=== PATIENT | female | born 1955 | race Caucasian/White ===

== ENCOUNTER 2016-09-10 05:08 | Day surgery (SDC) | payer BC ==
[2016-09-09 14:49] LABS: BASOPHILS 0.9 % (0.0-2.0); EOSINOPHILS 1.8 % (0-7); HEMATOCRIT 33.8 % (36.0-48.0); HEMOGLOBIN 9.9 g/dL (12-16); LYMPHOCYTES 20.2 % (15-50); MCH 22.4 pg (26.0-34.0); MCHC 29.3 g/dL (31.0-37.0); MCV 76.5 fL (80.0-100.0); MEAN PLATELET VOLUME 10.1 fL (7.4-10.4); MONOCYTES 21.9 % (2-11); NEUTROPHILS 55.2 % (40-80); PLATELET COUNT 128 10x3/uL (130-400); RBC 4.42 10x6/uL (4.00-5.40); WBC 2.3 10x3/uL (4.8-10.8)
[2016-09-09 15:13] LABS: APTT 27.2 SECONDS (22.8-39.4); INR 1.11 (0.85-1.17); PROTIME 14.1 SECONDS (11.6-15.0)
[2016-09-09 15:24] LABS: ALBUMIN 3.3 g/dL (3.4-5.0); ALKALINE PHOSPHATASE 101 U/L (46-116); ALT (SGPT) 59 U/L (10-68); CALC OSMOLALITY 271 mosm/kg (275-300); CALCIUM 9.1 mg/dL (8.5-10.1); CARBON DIOXIDE 28.4 mmol/L (21.0-32.0); CHLORIDE - SERUM 98 mmol/L (98-107); CREATININE - SERUM 0.6 mg/dL (0.6-1.3); GLUCOSE 127 mg/dL (74-106); POTASSIUM - SERUM 3.7 mmol/L (3.5-5.1); PROTEIN - SERUM 7.6 g/dL (6.4-8.2); SODIUM 136 mmol/L (136-145); UREA NITROGEN 8 mg/dL (7-18); eGFR NON AFRICAN AMERICAN > 90 mL/min (90-120)
[~2016-09-10] VITALS: Ht 167.6 cm; Wt 70.8 kg
[~2016-09-10 05:08] MED LIST: ALDACTONE100 MG PO; AMBIEN10 MG PO; ATIVAN0.5 MG PO; ATIVAN1 MG PO; BACLOFEN10 MG PO; CYMBALTA30 MG PO; EFFEXOR37.5 MG PO; ENULOSE10 G/15 ML PO; EPIKLOR20 MEQ PO; FUROSEMIDE10 MG/M1 IV; FUROSEMIDE40 MG PO; GLUCOPHAGE1000 MG PO; GLUCOPHAGE500 MG PO; LANTUS INSULIN10 ML SC; LASIX20 MG PO; LASIX40 MG PO; MAG-OX 400 MG400 MG; MAGNESIUM OXID500 MG PO; MILK THISTLE140 MG PO; PAXIL20 MG PO; POTASSIUM99 M1 PO; PRILOSEC20 MG PO; REGLAN10 MG PO; ROBAXIN-750750 MG PO; SYNTHROID75 MCG PO; VIT K; VITAMIN D3400 UNI1 PO; VITAMIN E1000 UNI1 PO; XIFAXAN550 MG PO; ZOFRAN4 MG PO
[2016-09-10 13:12] VITALS: BP 117/64; Ht 167.6 cm; Wt 70.8 kg
--- NOTE | 2016-09-10 15:50 | NUR ---
REASSESSING EFFECTIVENESS OF VALIUM 5 MG PO FOR PREOPERATIVE ANXIETY, PATIENT IS LYING IN BED, AWAKE, ALERT, BUT STATES "I FEEL A LITTLE MORE CALM. I CAN WAIT UNTIL THE SURGERY BETTER NOW WITHOUT FEELING SO NERVOUS."
[2016-09-10] MEDS ORDERED: HYDROCODONE-IB1 EAC3 PO (19:31)
[2016-09-10 20:02] VITALS: BP 103/62
--- NOTE | 2016-09-10 20:02 | NUR ---
REC'D FROM PACU PER BED POST OP VENTRAL HERNIA REPAIR PER DR. MARTINEZ. BANDAIDE TO [facility] C/D/I. IV PATENT RT ARM LR AT [facility]. SPOUSE AT BEDSIDE. PT AWAKE ALERT AND ORIENTED X3. MONITORING VS.
--- NOTE | 2016-09-10 20:30 | NUR ---
DRINKING DIET SPRITE AND ATE ON CAN OF CHICKEN NOODLE SOUP. NO NAUSEA OR VOMITING NO C/O PAIN.
--- NOTE | 2016-09-10 21:45 | NUR ---
DISCUSSED WITH PATIENT AND SPOUSE THE CARE NEEDED WITH POST OP HERNIA REPAIR. DISCUSSED NOT REMOVING BANDAIDE FOR 48 HOURS. ALSO NO LIFTING OR STRAINING. DISCUSSED PAIN MEDICATION. SPOUSE HAS ALREADY HAD FILLED. IV REMOVED PT DRESSED AND DISCHARGED HOME WITH SPOUSE PER W/C.
--- NOTE | 2016-09-27 13:33 | OP ---
PATIENT NAME: RASHEED BOYD MEDICAL RECORD: [id number] :57 LOCATION:D.OPS ADMISSION DATE: SURGEON: DELORES MARTINEZ MD DATE OF OPERATION: 09/10/2016 PREOPERATIVE DIAGNOSES: 1. Umbilical hernia. 2. Cirrhosis of the liver. 3. Diabetes mellitus. 4. Lupus. 5. Gastroparesis. 6. History of alcoholism. POSTOPERATIVE DIAGNOSES: 1. Umbilical hernia. 2. Cirrhosis of the liver. 3. Diabetes mellitus. 4. Lupus. 5. Gastroparesis. 6. History of alcoholism. PROCEDURE: Umbilical hernia repair. SURGEON: Delores Martinez MD REPORT OF PROCEDURE: The patient's abdomen was prepped and draped in sterile fashion. A semicircular incision was made on the inferior aspect of the patient's umbilicus. Electrocautery was used to dissect through the umbilical stalk and just above the umbilical stalk there was noted to be a hernia sac. This hernia sac was dissected free from the surrounding tissues, giving us a 1.2 x 0.5 cm hernia defect. This was wider than it was at all. We freed up the edges of it and reapproximated it with interrupted 0 Prolenes times 5. Just below the umbilicus, there was a very small pinpoint opening present. There was spillage of ascitic fluid through this, which was clear. The edges were cleaned off and this was reapproximated with a single interrupted 0 Prolene. The umbilicus was then tacked down using an interrupted 3-0 Vicryl. The subcutaneous tissues were reapproximated with interrupted 3-0 Vicryls and the skin was closed with running subcutaneous 5-0 Monocryl. A 10 mL of 0.25% Marcaine with epinephrine were infused into the surrounding tissues and the wounds were dressed appropriately. COMPLICATIONS: None. CONDITION: Stable. ANESTHESIA: General endotracheal and local. BLOOD LOSS: Minimal. TRANSINT:[id number] Voice Confirmation ID: [id number] DOCUMENT ID: [id number] OPERATIVE REPORT [id number] RASHEED BOYD DELORES MARTINEZ MD at 1333 CC: MARQUEZ GAUTAM MD [id number] DICTATION DATE: 09/10/161928 DEVULCANIZER CHARGER: 09/10/161956 [facility] 09/10/16 [facility] [address] [place] [address]
== END 2016-09-10 21:45 | disposition home or self-care (01) ==
LOC: D.OPS 05:08 → D.PAN 09:45 → D.OPS 09:45 → D.PAN 14:15 → D.OPS 14:15 → D.MS 20:01 → D.OPS 21:45
PROVIDERS: Surgery
DX: K42.9 Umbilical hernia without obstruction or gangrene (principal); K70.31 Alcoholic cirrhosis of liver with ascites; F10.21 Alcohol dependence, in remission; E11.43 Type 2 diabetes mellitus with diabetic autonomic (poly)neuropathy; K31.84 Gastroparesis; M32.9 Systemic lupus erythematosus, unspecified

== ENCOUNTER 2016-12-29 09:07 | Emergency (ER) | payer BC ==
[2016-09-10 13:12] VITALS: BMI 25.2
[~2016-12-29 09:07] MED LIST changes: +HYDROCODONE-IB1 EAC3 PO
== END 2016-12-29 11:00 | disposition home or self-care (01) ==
LOC: D.ER 09:07
DX: S63.502A Unspecified sprain of left wrist, initial encounter (principal); W19.XXXA Unspecified fall, initial encounter; Y93.89 Activity, other specified; Y92.89 Other specified places as the place of occurrence of the external cause; K74.60 Unspecified cirrhosis of liver; E11.9 Type 2 diabetes mellitus without complications; M32.9 Systemic lupus erythematosus, unspecified

== ENCOUNTER → 2017-06-05 07:40 | Outpatient (CLI) | payer BC ==
[2016-09-10 13:12] VITALS: BMI 25.2
== END | disposition home or self-care (01) ==
LOC: D.US 07:40
DX: K74.60 Unspecified cirrhosis of liver (principal)

== ENCOUNTER 2017-06-10 03:43 | Emergency (ER) | payer BC ==
[2016-09-10 13:12] VITALS: BMI 25.2
[2017-06-10 04:23] LABS: APPEARANCE CLEAR (CLEAR); BILIRUBIN NEGATIVE (NEGATIVE); COLOR STRAW (YELLOW); GLUCOSE NEGATIVE (NEGATIVE); KETONE NEGATIVE (NEGATIVE); NITRITE NEGATIVE (NEGATIVE); PROTEIN NEGATIVE (NEGATIVE); SPECIFIC GRAVITY 1.005 (1.005-1.020); UROBILINOGEN NORMAL (NORMAL)
[2017-06-10 04:24] LABS: UDS - AMPHET NEGATIVE QUAL (NEGATIVE); UDS - BARB NEGATIVE QUAL (NEGATIVE); UDS - BENZO NEGATIVE QUAL (NEGATIVE); UDS - COCAINE NEGATIVE QUAL (NEGATIVE); UDS - OPIATE NEGATIVE QUAL (NEGATIVE); UDS - PCP NEGATIVE QUAL (NEGATIVE); UDS - THC NEGATIVE QUAL (NEGATIVE)
[2017-06-10 04:28] LABS: MCH 22.6 pg (26.0-34.0); MCHC 30.3 g/dL (31.0-37.0); MCV 74.7 fL (80.0-100.0); MEAN PLATELET VOLUME 9.9 fL (7.4-10.4); PLATELET COUNT 127 10x3/uL (130-400); RBC 4.42 10x6/uL (4.00-5.40); RDW 19.5 % (11.5-14.5); WBC 3.2 10x3/uL (4.8-10.8)
[2017-06-10 04:38] LABS: ALBUMIN 3.3 g/dL (3.4-5.0); ALKALINE PHOSPHATASE 112 U/L (46-116); ALT (SGPT) 60 U/L (10-68); BILIRUBIN - TOTAL 0.63 mg/dL (0.2-1.3); CALC OSMOLALITY 258 mosm/kg (275-300); CALCIUM 8.8 mg/dL (8.5-10.1); CARBON DIOXIDE 23.2 mmol/L (21.0-32.0); CHLORIDE - SERUM 90 mmol/L (98-107); CREATININE - SERUM 0.6 mg/dL (0.6-1.3); GLUCOSE 115 mg/dL (74-106); POTASSIUM - SERUM 3.1 mmol/L (3.5-5.1); PROTEIN - SERUM 8.2 g/dL (6.4-8.2); SODIUM 130 mmol/L (136-145); UREA NITROGEN 5 mg/dL (7-18); eGFR NON AFRICAN AMERICAN > 90 mL/min (90-120)
[2017-06-10 04:45] LABS: BASOPHILS 1 % (0-2); EOSINOPHILS 1 % (0-7); LYMPHOCYTES 35 % (15-50); MONOCYTES 13 % (2-11); NEUTROPHILS 49 % (40-80)
[2017-06-10 04:46] LABS: PLATELET ESTIMATE NORMAL
[2017-06-10 04:49] LABS: CKMB 0.8 U/L (0.0-3.6); CREATINE KINASE 69 UL (21-215); MAGNESIUM - SERUM 1.7 mg/dL (1.8-2.4)
[2017-06-10 04:52] LABS: TROPONIN-I < 0.017 ng/mL (0.000-0.060)
== END 2017-06-10 06:33 | disposition home or self-care (01) ==
LOC: D.ER 03:43
PROVIDERS: Family Medicine
DX: F41.9 Anxiety disorder, unspecified (principal); F10.10 Alcohol abuse, uncomplicated; E83.51 Hypocalcemia; E83.42 Hypomagnesemia; K74.60 Unspecified cirrhosis of liver; M32.9 Systemic lupus erythematosus, unspecified; F17.200 Nicotine dependence, unspecified, uncomplicated; I44.0 Atrioventricular block, first degree

== ENCOUNTER → 2018-02-03 08:02 | Outpatient (CLI) | payer BC ==
[2016-09-10 13:12] VITALS: BMI 25.2
== END | disposition home or self-care (01) ==
LOC: D.US 01-29 08:30
DX: K74.60 Unspecified cirrhosis of liver (principal)

== ENCOUNTER → 2018-10-19 08:09 | Outpatient (CLI) | payer BC ==
[2016-09-10 13:12] VITALS: BMI 25.2
== END | disposition home or self-care (01) ==
LOC: D.US 10-16 11:00
PROVIDERS: ATTEND Family Medicine
DX: K74.60 Unspecified cirrhosis of liver (principal); R18.8 Other ascites

== ENCOUNTER 2018-12-18 10:41 | Inpatient (IN) | payer BC ==
[~2018-12-18] VITALS: Ht 167.6 cm; Wt 63.5 kg
--- NOTE | ~2018-12-18 | HEMODYNAMI ---
PATIENT:RASHEED BOYD MEDICAL RECORD: [id number] : 57 LOCATION:[facility] D.1212 ADMISSION DATE: 12/18/18 Generatedon:12/18/201816:57 Patient name: RASHEED BOYD Patient #: [id number] SSN: : 1955 Date of study: 12/18/2018 Page: Of Hemodynamic Procedure Report Patient Data Patient Demographics Procedure consent was obtained First Name: RASHEED Gender: Female Last Name: OLIVER : 1955 Middle Initial: RAJNI Age: 63 year(s) Patient #: [id number] Race: Unknown Additional ID: [id number] Contact details Address: [address] [place] [address] [facility] State: [place] City: [facility] Zip code: [address] Past Medical History Allergies Allergen Reaction Date Comments Reported Sulfa drugs 12/18/2018 Admission Admission Data Admission Date: 12/18/2018 Admission Time: 12:59 Room #: D.1212 Procedure Procedure Types Cath Procedure Peripheral Cath Diagnostic Procedure Miscellaneous PARACENTESIS WITH GUIDE Procedure Description Procedure Date Procedure Date: 12/18/2018 Procedure Start Time: 16:23 Procedure Staff Name Function Rich Ward MD Performing Physician Michel Verde RT Monitor Rasheed Rodrigues RN Nurse Hemodynamics Rest Heart Rate: 70 (bpm) Snapshots Pre Cath Intra NCS Post Cath Vital Signs Time Heart Resp SPO2 etCO2 NIBP Rhythm Pain Sedation Rate (ipm) (%) (mmHg) (mmHg) Status Level (bpm) 16:06:28 69 19 93 0 97/62(83) NSR 0 (11) 10(A) , No pain 16:10:29 54 15 94 0 98/63(73) NSR 0 (11) 10(A) , No pain 16:14:31 69 17 94 0 95/62(81) NSR 0 (11) 10(A) , No pain 16:18:33 70 19 94 0 96/60(73) NSR 0 (11) 10(A) , No pain 16:22:35 69 15 93 0 98/62(79) NSR 0 (11) 10(A) , No pain 16:26:36 69 17 92 0 94/62(87) NSR 0 (11) 10(A) , No pain 16:30:38 72 17 93 0 90/60(76) NSR 0 (11) 10(A) , No pain 16:34:37 69 18 0 91/60(74) NSR 0 (11) 10(A) , No pain 16:38:37 69 16 0 95/61(75) NSR 0 (11) 10(A) , No pain 16:42:39 68 14 92 0 93/59(71) NSR 0 (11) 10(A) , No pain 16:46:43 68 14 0 90/54(75) NSR 0 (11) 10(A) , No pain 16:50:46 68 14 0 93/51(81) NSR 0 (11) 10(A) , No pain 16:54:50 67 11 0 91/54(77) NSR 0 (11) 10(A) , No pain Procedure Log Time Note 15:56:31 Michel Verde RT (R) (CV) sent for patient. Start room use. 15:56:41 Time tracking: Regular hours (M-F 7:00 - 5:00) 15:56:45 Plan of Care:Hemodynamics will remain stable., Cardiac rhythm will remain stable., Comfort level will be maintained., Respiratory function will remain adequate., Patient/ family verbilizes understanding of procedure., Procedure tolerated without complication., Recovers from procedure without complications.. 15:57:27 Patient received from Other to IR Alert and oriented. Tansferred to table in Supine position. 15:57:31 Full Disclosure recording started 15:57:33 Correct patient and procedure confirmed by team. 15:57:36 Signed procedure consent form obtained from patient. 15:57:41 - 15:57:42 Pre-procedure instructions explained to patient. 15:57:43 Pre-op teaching completed and patient verbalized understanding. 16:05:20 ECG and BP/O2 sat monitors applied to patient. 16:05:21 Vital chart was started 16:05:22 Baseline sample Acquired. 16:05:34 Patient allergic to Sulfa drugs 16:05:40 Is patient on blood thinner?No 16:05:49 Right Abdomen was prepped with chlora-prep and draped in sterile fashion. 16:22:12 Physician arrived 16:22:13 --------ALL STOP TIME OUT------ 16:22:18 Final Timeout: patient, procedure, and site verified with staff and physician. All members of the team are in agreement. 16:22:24 Right abdomen site verified by team. 16:22:32 Fire Safety Assessment: A--An alcohol-based skin anteseptic being used preoperatively., C--Open oxygen or nitrous oxide is being used. 16:22:38 Sedation plan: Local Anesthetic Medication:Lidocaine 16:22:52 Procedure started. 16:23:32 Local anesthetic to Abdominal area with Lidocaine 1% by Rich Ward MD.INITIAL ACCESS ONLY 16:23:45 [id number] 8FR CATH DRAIN TRAY opened to sterile field. 16:56:11 Procedure ended.(Physican Out) 16:56:19 Sharps counted by scrub and verified by R.N. 16:56:25 Insertion/operative site no bleeding no hematoma. 16:56:30 Post-op/insertion site Right Abdominal area dressed using a 4 x 4 and Tegaderm. 16:56:37 Post Abdominal area:stable 16:56:49 7.6 liters drained 16:57:28 Report given to Other. 16:57:30 Patient transfered to Other with Bed. 16:57:48 Vital chart was stopped Device Usage Item Name Manufacture Quantity Catalog Hospital Part Current Minimal Lot# / Number Charge Number Stock Stock Serial# Code [id number] CareFusion 1 [id number] 8FR CATH DRAIN TRAY Signature Audit [place] Stage Time Signature Unsigned Intra-Procedure 12/18/2018 Michel 4:57:46 PM Ammon RT (R) (CV) Signatures Monitor : Michel Signature : Bobyield RT Date : Time : [facility] [address] [facility] [address]
[2018-12-18] MEDS ORDERED: LASIX40 MG PO (11:09)
[2018-12-18] MEDS ORDERED: GABAPENTIN100 MG PO (11:10)
[2018-12-18] MEDS ORDERED: ALEVE220 MG PO (11:10)
[2018-12-18] MEDS ORDERED: LIBRIUM25 MG PO (11:11)
[2018-12-18] MEDS ORDERED: PROPRANOLOL HCL20 MG PO (11:12)
[2018-12-18] MEDS ORDERED: XIFAXAN550 MG PO (11:12)
[2018-12-18 11:54] LABS: HEMATOCRIT 28.4 % (36.0-48.0); HEMOGLOBIN 9.4 g/dL (12-16); MCH 26.4 pg (26.0-34.0); MCHC 33.1 g/dL (31.0-37.0); MCV 79.8 fL (80.0-100.0); MEAN PLATELET VOLUME 10.1 fL (7.4-10.4); RBC 3.56 10x6/uL (4.00-5.40); WBC 2.7 10x3/uL (4.8-10.8)
[2018-12-18 11:56] LABS: PLATELET COUNT 192 10x3/uL (130-400)
[2018-12-18 12:12] LABS: ALBUMIN 2.3 g/dL (3.4-5.0); ANION GAP 15.8 mmol/L (8-16); BILIRUBIN - TOTAL 1.33 mg/dL (0.2-1.3); CALCIUM 8.7 mg/dL (8.5-10.1); CARBON DIOXIDE 24.7 mmol/L (21.0-32.0); CREATININE - SERUM 1.5 mg/dL (0.6-1.3); PROTEIN - SERUM 7.1 g/dL (6.4-8.2)
[2018-12-18 12:16] LABS: POTASSIUM - SERUM 2.5 mmol/L (3.5-5.1)
[2018-12-18 12:28] LABS: APPEARANCE CLEAR (CLEAR); BILIRUBIN NEGATIVE (NEGATIVE); COLOR YELLOW (YELLOW); GLUCOSE NEGATIVE (NEGATIVE); KETONE NEGATIVE (NEGATIVE); NITRITE NEGATIVE (NEGATIVE); PROTEIN NEGATIVE (NEGATIVE); UROBILINOGEN NORMAL (NORMAL)
[2018-12-18 12:40] LABS: APTT 32.4 SECONDS (22.8-39.4); INR 1.13 (0.85-1.17)
[2018-12-18 13:22] LABS: EOSINOPHILS 2 % (0-7); HYPOCHROMASIA 1+; LYMPHOCYTES 15 % (15-50); MONOCYTES 27 % (2-11); NEUTROPHILS 56 % (40-80); PLATELET ESTIMATE NORMAL
--- NOTE | 2018-12-18 13:50 | NUR ---
REPORT CALLED TO [place] BY SBAR FORMAT
--- NOTE | 2018-12-18 13:55 | NUR ---
PT ADMITTED TO 1212. CONDITION STABLE.
--- NOTE | 2018-12-18 14:10 | NUR ---
RECEIVED PATIENT FROM ER VIA STRETCHER, ALERT, CALM, PLEASANT MOOD, FAMILY AT BEDSIDE. TRANSFERED FOR STRETCHER TO BED WITHOUT DIFFICULTY. CALL LIGHT AT HAND, INSTRUCTED TO CALL WITH NEEDS.
[2018-12-18 16:20] VITALS: BP 139/64
--- NOTE | 2018-12-18 17:19 | NUR ---
RETURNED FROM PROCEDURE, ALERT, ORIENTED, CALM, COOPERATIVE. STATED THAT SHE FELT BETTER. VSS FOLLOWS: T 97.0, B/P 89/55, P 66, R 18, SPO2 95%. NEW ORDERS FOR ALBUMIN, PHARM NOTIFIED.
[2018-12-18 18:38] LABS: EOS BF 2 %; MACROPHAGES BF 62 %; NEUT - BF 9 %
[2018-12-18 19:50] VITALS: BP 89/38
--- NOTE | 2018-12-18 19:57 | NUR ---
EVENING ROUNDS COMPLETED. REPORT RECEIVED. PT SITTING UP IN BED WITH EYES OPEN, RR EVEN AND UNLABORED. BED IN LOW POSITION. FAMILY AT BEDSIDE. NO S/S OF DISTRESS NOTED. INTRODUCED SELF TO PT. PT COMPLAINS OF PAIN IN LEFT HEEL. THEREFORE PLACED PILLOW UNDER PT FEET. +4 EDEMA PALPATED ON BILATERAL LOWER EXTREMITIES. PT DENIES FURTHER NEEDS AT THIS TIME. CALL LIGHT IN REACH. WILL CTM.
--- NOTE | 2018-12-18 21:55 | NUR ---
2.8 SERUM POTASSIUM TREATED ORDERED.
[2018-12-19 00:56] VITALS: BP 92/40
--- NOTE | 2018-12-19 03:58 | NUR ---
ASSISTED PT TO BED MERIDA, PROVIDED PT WITH NEW BED SHEETS AND LINEN AFTER EPISODE OF URINARY INCONTINENCE. NO S/S OF DISTRESS NOTED. CALL LIGHT IN REACH. WILL CTM.
--- NOTE | 2018-12-19 04:52 | NUR ---
I have reviewed this patient and I concur with the Shift Assessment completed by the Licensed Practical Nurse today this shift.
[2018-12-19 05:08] VITALS: BP 91/32
[2018-12-19 08:05] VITALS: BP 94/46
--- NOTE | 2018-12-19 09:18 | NUR ---
MORNING ASSESSMENT COMPLETE. SEE ASSESSMENT FLOWSHEET FOR FURTHER DETAILS. PT LYING IN BED AAO X4 TO PERSON, PLACE, TIME, AND SITUATION. DENIES NEEDS AT THIS TIME. CL IN REACH. SIDE RAULS UP X3 FOR PT SAEFTY. BED IN LOWEST POSITION.
[2018-12-19 11:35] VITALS: Ht 167.6 cm; Wt 63.5 kg
[2018-12-19 12:57] VITALS: BP 100/63; BP 154/65
[2018-12-19 16:19] VITALS: BP 105/58
--- NOTE | 2018-12-19 17:31 | NUR ---
PT LYING IN BED. AT BEDSIDE. DENIES NEEDS AT THIS TIME. NO SIGNS OF DISTRESS NOTED.
[2018-12-19 20:00] VITALS: BP 102/63
[2018-12-20] VITALS: BP 90/52
--- NOTE | 2018-12-20 00:35 | NUR ---
ALERT AND ORIENTED WITH BRIEF MOMENTS OF CONFUSION. COMPLAINS OF MUSCLE SPASMS. DISCUSSED WITH PATIENT LOW POTASSIUM AND S/E OF ELECTROLYTE IMBALANCE. PT VERBALIZES UNDERSTANDING. ASSISTED TO BATHROOM. PT SLOW AND REQUIRES PARTIAL ASSISTANCE. VOIDS WITH NO ISSUES. LEFT AC IV THAT IS PATENT AND DRESSING ADHERED TO SKIN. ASSISTED BACK TO BED. NO FURTHER ISSUES AT THIS TIME.
--- NOTE | 2018-12-20 01:39 | NUR ---
I have reviewed this patient and I concur with the Shift Assessment completed by the Licensed Practical Nurse today this shift.
[2018-12-20 04:00] VITALS: BP 113/61
[2018-12-20 06:02] LABS: HEMATOCRIT 27.4 % (36.0-48.0); MCH 26.5 pg (26.0-34.0); MCHC 32.8 g/dL (31.0-37.0); MCV 80.6 fL (80.0-100.0); MEAN PLATELET VOLUME 9.3 fL (7.4-10.4); MONOCYTES 26.5 % (2-11); NEUTROPHILS 38.5 % (40-80); PLATELET COUNT 163 10x3/uL (130-400)
[2018-12-20 06:48] LABS: ANION GAP 15.3 mmol/L (8-16); BILIRUBIN - TOTAL 1.52 mg/dL (0.2-1.3); CALCIUM 8.3 mg/dL (8.5-10.1); CARBON DIOXIDE 25.4 mmol/L (21.0-32.0); CREATININE - SERUM 0.9 mg/dL (0.6-1.3); POTASSIUM - SERUM 3.7 mmol/L (3.5-5.1); PROTEIN - SERUM 6.6 g/dL (6.4-8.2)
--- NOTE | 2018-12-20 07:49 | NUR ---
MORNING ASSESSMENT COMPLETE. PT AAO X4 TO PERSON, PLACE, TIME, AND SITUATION. DENEIS NEEDS AT THIS TIME. CL IN REACH. SIDE RAILS UP X3 FOR PT SAFETY. BED IN LWOEST POSITION. MAG DECREASED AT 1- WILL TREAT PER PROTOCOL. ALBUMIN INCREASING- TREATING WITH ALB Q12. AMMONIA DECREASING- TREATING WITH LACTULOSE.
[2018-12-20 07:56] VITALS: BP 98/53
[2018-12-20 12:06] VITALS: BP 94/64
[2018-12-20 15:56] VITALS: BP 107/63
--- NOTE | 2018-12-20 19:08 | NUR ---
GREETED PATIENT AND INTRODUCED MYSELF. PATIENT IS LAYING IN BED IN SUPINE POSITION. HOB AT 30 DEGREES. FAMILY MEMBER AT BEDSIDE. DENIES ANY NEEDS AT THIS TIME. CALL LIGHT IN REACH.
[2018-12-21] VITALS: BP 99/57
--- NOTE | 2018-12-21 02:30 | NUR ---
ASSISTED PATIENT TO BATHROOM USING ONE PERSON ASSIST. BACK TO BED AND REPOSITIONED FOR COMFORT. CALL LIGHT IN REACH.
--- NOTE | 2018-12-21 03:25 | NUR ---
PATIENT RESTING QUIETLY LAYING IN SUPINE WITH EYES CLOSED. HOB AT 30 DEGREES. RESPIRATIONS EVEN. NO S/S OF DISTRESS. SR UP X 2. BED IN LOWEST POSITION. CALL LIGHT IN REACH.
[2018-12-21 04:00] VITALS: BP 96/57
[2018-12-21 05:49] LABS: BASOPHILS 0.8 % (0-2); EOSINOPHILS 5.8 % (0-7); HEMATOCRIT 27.4 % (36.0-48.0); HEMOGLOBIN 8.8 g/dL (12-16); LYMPHOCYTES 25.6 % (15-50); MCHC 32.1 g/dL (31.0-37.0); MCV 81.1 fL (80.0-100.0); MEAN PLATELET VOLUME 9.4 fL (7.4-10.4); NEUTROPHILS 43.8 % (40-80); PLATELET COUNT 171 10x3/uL (130-400); RBC 3.38 10x6/uL (4.00-5.40); RDW 19.1 % (11.5-14.5); WBC 2.6 10x3/uL (4.8-10.8)
[2018-12-21 05:58] LABS: ALBUMIN 2.9 g/dL (3.4-5.0); ALKALINE PHOSPHATASE 78 U/L (46-116); ALT (SGPT) 22 U/L (10-68); BILIRUBIN - TOTAL 1.33 mg/dL (0.2-1.3); CALC OSMOLALITY 264 mosm/kg (275-300); CALCIUM 8.6 mg/dL (8.5-10.1); CARBON DIOXIDE 25.2 mmol/L (21.0-32.0); CHLORIDE - SERUM 98 mmol/L (98-107); CREATININE - SERUM 0.8 mg/dL (0.6-1.3); GLUCOSE 116 mg/dL (74-106); POTASSIUM - SERUM 3.6 mmol/L (3.5-5.1); PROTEIN - SERUM 6.3 g/dL (6.4-8.2); SODIUM 132 mmol/L (136-145); UREA NITROGEN 11 mg/dL (7-18); eGFR NON AFRICAN AMERICAN 77 mL/min (90-120)
[2018-12-21 07:26] VITALS: BP 95/41
--- NOTE | 2018-12-21 07:30 | NUR ---
A/A/OX4. DENIES ANY PAIN OR DISCOMFORT AND NO REQUESTS VOICED. ASSESSMENT COMPLETED. WILL CONTINUE POC.
--- NOTE | 2018-12-21 08:00 | HP ---
PATIENT: RASHEED BOYD MEDICAL RECORD: [id number] ACCOUNT: [id number] [facility] : 57 ADMISSION DATE: 12/19/18 PCP: MARQUEZ GAUTAM MD HISTORY AND PHYSICAL EXAMINATION DATE OF ADMISSION: 12/18/2018. CHIEF COMPLAINT: Abdominal pain, ascites, and some shortness of breath. HISTORY OF PRESENT ILLNESS: A 63-year-old female with a known history of alcoholic cirrhosis with ascites, presented with increased abdominal distention with some respiratory difficulty. She has had pain in the left upper abdominal area. The patient was admitted to [facility] around the first of December and had 6.2 liters of fluid taken off her abdomen at that time. It quickly reaccumulated, but she really would not have any shortness of breath. When she was at [place], her ammonia level in the Emergency Room was 12, total bilirubin 1.8, creatinine 1.09, and sodium was 110. Some medicines were adjusted and I saw her in my office just 2 days ago. She was breathing okay, but definitely had reaccumulated fluid in her abdomen and in her lower extremities. In my office the other day, her creatinine had gone up to 3.1. Her sodium was up to 126, her potassium was okay. In the ER today, her blood pressure was okay. Her sodium was 130, potassium was down at 2.5, creatinine was okay at 1.5, and total bilirubin was 1.3. AST and ALT were both okay. Ammonia level was a little elevated at 38. Her INR is pending. She is admitted and GI will be consulted as well interventional radiology for paracentesis and possible TIPS. PAST MEDICAL AND SURGICAL HISTORY: The patient has had anxiety, diabetes, hypothyroidism, depression, cirrhosis, alcohol abuse, and iron deficiency anemia. She has had low white blood cell count. They were worked up by Dr. Garcia in the past and it was felt this was due to her alcohol consumption. She has had a hysterectomy and umbilical hernia repair by Dr. Resendez and a recurrent umbilical hernia repair by Dr. Mckinley in [place] in August 2018. HOME MEDICATIONS: Include levothyroxine 75 mcg once a day, Xifaxan 550 mg twice a day, propranolol 20 mg twice a day, gabapentin 100 mg 2 in the morning and 1 at night, spironolactone 100 mg twice a day, Lasix 40 mg twice a day, lorazepam 1 mg t.i.d. p.r.n. anxiety, Prilosec 20 mg daily, metformin 1000 mg twice a day. She was also on Librium 25 mg 3 times a day as needed. ALLERGIES: REPORTEDLY TO AMBIEN, HYDROCODONE, AND SULFA. HABITS: Former smoker. Alcohol, she supposedly just recently quit. No illicit drug use. FAMILY HISTORY: Father is . He had diabetes. Mother is living. Maternal grandmother of breast cancer. REVIEW OF SYSTEMS: GENERAL: Weight is fluctuated depending on her fluid status. HEENT: No particular sinus or allergy problems. RESPIRATORY: No history of emphysema or asthma. CARDIAC: No known coronary disease. GASTROINTESTINAL: See above history. She has been seen by Dr. Montejo in the past and then [facility], but has not seen any GI doctor in probably 2 years. GENITOURINARY: No significant problems there. HISTORY AND PHYSICAL [id number] RASHEED BOYD MUSCULOSKELETAL: No significant arthritic aches and pains. NEUROLOGIC: No seizures. No migraines. PSYCHIATRIC: She has depression and anxiety. PHYSICAL EXAMINATION: VITAL SIGNS: Temperature 97.6, pulse 70, respirations 18, blood pressure 139/64, O2 sat 98%. GENERAL: She is awake and alert. She is confused compared to when I saw her in the office a couple days ago. SKIN: Warm and dry. HEENT: Unremarkable. NECK: Supple. HEART: Tachycardia without murmur. LUNGS: Fairly clear. ABDOMEN: Distended and some generalized tenderness. No guarding or rebound. No mass. EXTREMITIES: 3-4+ pitting edema. She has some cellulitis noted in the left anterior tibia area. LABORATORY DATA: Urinalysis is unremarkable. CBC with a white count of 2700, hemoglobin 9.4, hematocrit 28.4, platelets 192,000. INR 1.13. Basic metabolic panel: Sodium 130, potassium 3.5, chloride 92, CO2 24.7, BUN 33, creatinine 1.5, glucose 98, calcium 8.7, total bilirubin 1.33, AST 44, ALT 25, and alkaline phosphatase 106. Ammonia level is 38, albumin 2.3, amylase 34, and lipase 173. ASSESSMENT: 1. Alcoholic cirrhosis with worsening ascites and shortness of breath. 2. Hypokalemia. 3. Cvn-nayothf-ywmrsyjvd diabetes. PLAN: We will admit, replace potassium. Dr. Montejo is consulted. Interventional radiology is consulted for paracentesis and then to consider TIPS procedure. Other tests or procedures as warranted. I spoke with the patient, the patient's , and patient's mother at bedside. TRANSINT:[id number] Voice Confirmation ID: [id number] DOCUMENT ID: [id number] MARQUEZ GAUTAM MD at 0800 CC: [id number] DICTATION DATE: 12/18/181735 LINING CLOSER: 12/18/181950 ADM IN [facility] [address] [place] [id number]
--- NOTE | 2018-12-21 08:46 | MORECARE ---
CASE MANAGEMENT DISCHARGE SUMMARY PATIENT: RASHEED BOYD UNIT: [id number] ADM DATE: 12/19/18 AGE: 63 : 57 SEX: F ROOM/BED: D.1212 AUTHOR: BENITA LEAVITT PHYSICIAN: REFERRING PHYSICIAN: MARQUEZ GAUTAM MD DATE OF SERVICE: 12/21/18 Discharge Plan Patient Name: RASHEED BOYD [facility] : 1955 Planned Disposition: Home Anticipated Discharge Date: Discharge Date: Expected LOS: Initial Reviewer: [email or web address] Initial Review Date: 12/21/2018 Generated: 12/21/18 9:46 am Patient Name: RASHEED BOYD Page 03615 at 0846 All edits/amendments must be made on the electronic document DICTATION DATE: 12/21/1845 CABINET ASSEMBLER: ABDULLAHI 12/21/18 0845 RPT#: [id number] DC DATE: STATUS: ADM IN [facility] [address] [place] [address] END OF REPORT
--- NOTE | 2018-12-21 08:52 | MORECARE ---
CASE MANAGEMENT DISCHARGE SUMMARY PATIENT: RASHEED BOYD UNIT: [id number] ADM DATE: 12/19/18 AGE: 63 : 57 SEX: F ROOM/BED: D.1212 AUTHOR: TREE,DOC PHYSICIAN: REFERRING PHYSICIAN: MARQUEZ GAUTAM MD DATE OF SERVICE: 12/21/18 Discharge Plan Patient Name: RASHEED BOYD Facility: [facility]:[place] : 1955 Planned Disposition: Home Anticipated Discharge Date: Discharge Date: Expected LOS: Initial Reviewer: [email or web address] Initial Review Date: 12/21/2018 Generated: 12/21/18 9:52 am Comments DCP- Discharge Planning Updated by [email or web address]: Alicia Sawyer on 12/21/18 7:[address] Patient Name: RASHEED BOYD Admission Status: ER Accout number: [id number] Admission Date: 12-19-2018 : 1955 Admission Diagnosis: Attending: MARQUEZ GAUTAM Current LOS: 2 Anticipated DC Date: Planned Disposition: Home Primary Insurance: [employer] BLUE PPO Discharge Planning Comments: CM MEET WITH PT AFTER GETTING VERBAL CONSENT TO CONTINUE WITH INITAL ASSESSMENT AND DISCHARGE NEEDS. CM EDUCATED ON ROLE OF CM AND THE SERVICES AVALIABLE SUCH HH, REHAB AND DME SERVICES. PT LIVES AT HOME WITH SPOUSE AND HE WILL DRIVE HER HOME AT DC. PT FEELS LIKE HOME IS A SAFE DC PLAN. PT HAS BSC AND WALKER AT HOME. DENIES ANY CM NEEDS AT THIS TIME. CM WILL CONTINUE TO FOLLOW Compress Machine Operator: Alicia Sawyer DCPIA - Discharge Planning Initial Assessment Updated by [email or web address]: Alicia Sawyer on 12/21/18 8:47 am * Is the patient Alert and Oriented? Yes * How many steps to enter\exit or inside your home? * PCP DAIN * Pharmacy [facility] * Preadmission Environment Home with Family * ADLs Independent * Equipment Walker * Other Equipment BSC * List name and contact numbers for known caregivers / representatives who currently or will assist patient after discharge: SHERICE [phone] * Verbal permission to speak to the caregivers and representatives has been obtained from the patient. Yes * Community resources currently utilized None * Additional services required to return to the preadmission environment? No * Can the patient safely return to the preadmission environment? Yes * Has this patient been hospitalized within the prior 30 days at any hospital? No Last DP export: 12/21/18 7:46 a Patient Name: RASHEED BOYD Page [id number] at 0852 All edits/amendments must be made on the electronic document DICTATION DATE: 12/21/18851 STAFF PHARMACIST: ABDULLAHI 12/21/18851 RPT#: [id number] DC DATE: STATUS: ADM IN [facility] [address] [place] [address] END OF REPORT
--- NOTE | 2018-12-21 09:31 | NUR ---
Rehab Note- Acute Inpatient Rehab prescreen order received. The patient has [employer] insurance and cannot be accepted to [facility] Acute Inpatient Rehab. Thank you for this referral! Jazmín Chen RN CLinical Liaison, [facility] Rehab
[2018-12-21 12:39] VITALS: BP 131/62
[2018-12-21 16:33] VITALS: BP 98/60
--- NOTE | 2018-12-21 19:27 | NUR ---
GREETED PATIENT AND INTRODUCED MYSELF HER NURSE. PATIENT IS WATCHING A VIDEO ON HER PERSONAL CELL PHONE, FAMILY MEMBER AT BEDSIDE. DENIES ANY PAIN AT THIS TIME. DENIES ANY FURTHER NEEDS. CALL LIGHT IN REACH.
[2018-12-21 20:00] VITALS: BP 112/76
[2018-12-22] VITALS: BP 116/70
[2018-12-22 04:00] VITALS: BP 91/54
[2018-12-22 07:06] LABS: HEMATOCRIT 28.3 % (36.0-48.0); HEMOGLOBIN 9.2 g/dL (12-16); MCH 26.4 pg (26.0-34.0); MCHC 32.5 g/dL (31.0-37.0); MCV 81.3 fL (80.0-100.0); MEAN PLATELET VOLUME 9.4 fL (7.4-10.4); PLATELET COUNT 180 10x3/uL (130-400); RBC 3.48 10x6/uL (4.00-5.40); RDW 19.2 % (11.5-14.5)
[2018-12-22 07:16] LABS: ALBUMIN 2.9 g/dL (3.4-5.0); ALKALINE PHOSPHATASE 87 U/L (46-116); ALT (SGPT) 25 U/L (10-68); BILIRUBIN - TOTAL 1.34 mg/dL (0.2-1.3); CALC OSMOLALITY 263 mosm/kg (275-300); CARBON DIOXIDE 26.9 mmol/L (21.0-32.0); CHLORIDE - SERUM 96 mmol/L (98-107); CREATININE - SERUM 0.8 mg/dL (0.6-1.3); GLUCOSE 120 mg/dL (74-106); MAGNESIUM - SERUM 1.6 mg/dL (1.8-2.4); POTASSIUM - SERUM 3.6 mmol/L (3.5-5.1); PROTEIN - SERUM 6.7 g/dL (6.4-8.2); SODIUM 131 mmol/L (136-145); UREA NITROGEN 12 mg/dL (7-18); eGFR NON AFRICAN AMERICAN 77 mL/min (90-120)
[2018-12-22 08:20] VITALS: BP 91/53
[2018-12-22 09:24] LABS: LYMPHOCYTES 18 % (15-50); MONOCYTES 24 % (2-11); NEUTROPHILS 58 % (40-80); PLATELET ESTIMATE NORMAL
--- NOTE | 2018-12-22 09:56 | NUR ---
ADMININSTERED MEDS WHOLE WITHOUT DIFFICULTY. DENIES ANY NEEDS OR PAIN. NO SIGNS OF DISTRESS NOTED. CALL LIGHT WITHIN REACH, FALL PRECAUTIONS IN PLACE. WILL CONTINUE TO MONITOR.
[2018-12-22 13:07] VITALS: BP 113/71
--- NOTE | 2018-12-22 15:11 | NUR ---
Nutrition follow up: 2gm Na diet with 50% average intake BG controlled Glucerna ordered TID Pt is in the bathroom now RD following
--- NOTE | 2018-12-22 18:11 | NUR ---
I have reviewed this patient and I concur with the Shift Assessment completed by the Licensed Practical Nurse today this shift.
--- NOTE | 2018-12-22 21:31 | NUR ---
PM MEDS ADMINISTERED ORDERED.
[2018-12-22 21:34] VITALS: BP 93/52
[2018-12-23] VITALS: BP 100/60
--- NOTE | 2018-12-23 01:23 | NUR ---
REST QUIETLY IN BED, CALL LIGHT IN REACH.
[2018-12-23 04:00] VITALS: BP 92/60
[2018-12-23 07:01] LABS: BASOPHILS 0.4 % (0-2); EOSINOPHILS 7.9 % (0-7); HEMATOCRIT 27.8 % (36.0-48.0); LYMPHOCYTES 23.7 % (15-50); MCH 26.2 pg (26.0-34.0); MCHC 32.4 g/dL (31.0-37.0); MCV 80.8 fL (80.0-100.0); MEAN PLATELET VOLUME 9.5 fL (7.4-10.4); MONOCYTES 23.4 % (2-11); NEUTROPHILS 44.6 % (40-80); PLATELET COUNT 200 10x3/uL (130-400); RBC 3.44 10x6/uL (4.00-5.40); RDW 18.8 % (11.5-14.5); WBC 2.8 10x3/uL (4.8-10.8)
[2018-12-23 07:23] LABS: ALBUMIN 2.6 g/dL (3.4-5.0); ALKALINE PHOSPHATASE 94 U/L (46-116); ALT (SGPT) 25 U/L (10-68); BILIRUBIN - TOTAL 1.41 mg/dL (0.2-1.3); CALC OSMOLALITY 259 mosm/kg (275-300); CALCIUM 8.9 mg/dL (8.5-10.1); CARBON DIOXIDE 23.8 mmol/L (21.0-32.0); CHLORIDE - SERUM 94 mmol/L (98-107); CREATININE - SERUM 0.8 mg/dL (0.6-1.3); GLUCOSE 109 mg/dL (74-106); POTASSIUM - SERUM 3.1 mmol/L (3.5-5.1); PROTEIN - SERUM 6.4 g/dL (6.4-8.2); SODIUM 129 mmol/L (136-145); UREA NITROGEN 12 mg/dL (7-18); eGFR NON AFRICAN AMERICAN 77 mL/min (90-120)
--- NOTE | 2018-12-23 08:00 | NUR ---
PT RESTING IN BED WITH EYES OPEN CALL LIGHT IN REACH WILL MONITER
[2018-12-23 08:56] VITALS: BP 100/66
--- NOTE | 2018-12-23 16:32 | NUR ---
I have reviewed this patient and I concur with the Shift Assessment completed by the Licensed Practical Nurse today this shift.
[2018-12-23 16:39] VITALS: BP 101/55
--- NOTE | 2018-12-23 16:39 | MORECARE ---
CASE MANAGEMENT DISCHARGE SUMMARY PATIENT: RASHEED BOYD UNIT: [id number] ADM DATE: 12/19/18 AGE: 63 : 57 SEX: F ROOM/BED: D.1212 AUTHOR: BENITA LEAVITT PHYSICIAN: REFERRING PHYSICIAN: MARQUEZ GAUTAM MD DATE OF SERVICE: 12/23/18 Discharge Plan Patient Name: RASHEED BOYD Facility: [facility]:[place] : 1955 Planned Disposition: Home Anticipated Discharge Date: Discharge Date: Expected LOS: Initial Reviewer: [email or web address] Initial Review Date: 12/21/2018 Generated: 12/23/18 5:39 pm Comments DCP- Discharge Planning Updated by [email or web address]: Dana Arshad on 12/23/18 3:[address] Patient Name: RASHEED BOYD Admission Status: ER Accout number: [id number] Admission Date: 12-19-2018 : 1955 Admission Diagnosis:UNSPECIFIED ABDOMINAL PAIN Attending: MARQUEZ GAUTAM Current LOS: 4 Anticipated DC Date: Planned Disposition: Home Primary Insurance: [employer] TRUE BLUE PPO Discharge Planning Comments: CM met with patient and her to discuss dc planning. CM noted patient is ambulating 500 ft with therapy. CM discussed discharge options of home health and out patient therapy with both patient and her . They discussed options and patient would like home health. JACQUELIN discussed along with providing a list of HH providers. They chose [facility]. Referral faxed to [place]. CM spoke to Sophia @ [place] with the referral information. CM spoke to Marcela at Dr. Gautam's office to let him know that the patient will not qualify for rehab and that the patient and her both feel dc to home is a safe dc plan with home health. Marcela to discuss with Dr. Gautam and let CM or nurse know if they are going to dc home today or tomorrow. No further dc needs known at this time. Industrial Gas Fitter: Dana Arshad RN,[facility] DCP- Discharge Planning Updated by [email or web address]: Alicia Sawyer on 12/21/18 7:[address] Patient Name: RASHEED BOYD Admission Status: ER Accout number: [id number] Admission Date: 12-19-2018 : 1955 Admission Diagnosis: Attending: MARQUEZ GAUTAM Current LOS: 2 Anticipated DC Date: Planned Disposition: Home Primary Insurance: [employer] TRUE BLUE PPO Discharge Planning Comments: CM MEET WITH PT AFTER GETTING VERBAL CONSENT TO CONTINUE WITH INITAL ASSESSMENT AND DISCHARGE NEEDS. CM EDUCATED ON ROLE OF CM AND THE SERVICES AVALIABLE SUCH HH, REHAB AND DME SERVICES. PT LIVES AT HOME WITH SPOUSE AND HE WILL DRIVE HER HOME AT DC. PT FEELS LIKE HOME IS A SAFE DC PLAN. PT HAS BSC AND WALKER AT HOME. DENIES ANY CM NEEDS AT THIS TIME. CM WILL CONTINUE TO FOLLOW Industrial Gas Fitter: Alicia Sawyer DCPIA - Discharge Planning Initial Assessment Updated by [email or web address]: Alicia Sawyer on 12/21/18 8:47 am * Is the patient Alert and Oriented? Yes * How many steps to enter\exit or inside your home? * PCP DAIN * Pharmacy [facility] * Preadmission Environment Home with Family * ADLs Independent * Equipment Walker * Other Equipment BSC * List name and contact numbers for known caregivers / representatives who currently or will assist patient after discharge: SHERICE [phone] * Verbal permission to speak to the caregivers and representatives has been obtained from the patient. Yes * Community resources currently utilized None * Additional services required to return to the preadmission environment? No * Can the patient safely return to the preadmission environment? Yes * Has this patient been hospitalized within the prior 30 days at any hospital? No Last DP export: 12/21/18 7:52 a Patient Name: RASHEED BOYD Page 44640 at 1639 All edits/amendments must be made on the electronic document DICTATION DATE: 12/23/18 1639 INFORMATION ASSURANCE: ABDULLAHI 12/23/18 1639 RPT#: [id number] DC DATE: STATUS: ADM IN [facility] [address] [place] [address] END OF REPORT
[2018-12-23] MEDS ORDERED: LASIX40 MG PO (16:46)
[2018-12-23] MEDS ORDERED: CHRONULAC30 ML PO (16:47)
--- NOTE | 2018-12-23 16:48 | MORECARE ---
CASE MANAGEMENT DISCHARGE SUMMARY PATIENT: RASHEED BOYD UNIT: [id number] ADM DATE: 12/19/18 AGE: 63 : 57 SEX: F ROOM/BED: D.1212 AUTHOR: BENITA LEAVITT PHYSICIAN: REFERRING PHYSICIAN: MARQUEZ GAUTAM MD DATE OF SERVICE: 12/23/18 Discharge Plan Patient Name: RASHEED BOYD Facility: [facility]:[place] : 1955 Planned Disposition: Home Anticipated Discharge Date: Discharge Date: Expected LOS: Initial Reviewer: [email or web address] Initial Review Date: 12/21/2018 Generated: 12/23/18 5:47 pm Comments DCP- Discharge Planning Updated by [email or web address]: Dana Arshad on 12/23/18 3:[address] Patient Name: RASHEED BOYD Admission Status: ER Accout number: [id number] Admission Date: 12-19-2018 : 1955 Admission Diagnosis:UNSPECIFIED ABDOMINAL PAIN Attending: MARQUEZ GAUTAM Current LOS: 4 Anticipated DC Date: Planned Disposition: Home Primary Insurance: [employer] TRUE BLUE PPO Discharge Planning Comments: CM met with patient and her to discuss dc planning. CM noted patient is ambulating 500 ft with therapy. CM discussed discharge options of home health and out patient therapy with both patient and her . They discussed options and patient would like home health. JACQUELIN discussed along with providing a list of HH providers. They chose [facility]. Referral faxed to [place]. CM spoke to Sophia @ [place] with the referral information. CM spoke to Marcela at Dr. Gautam's office to let him know that the patient will not qualify for rehab and that the patient and her both feel dc to home is a safe dc plan with home health. Marcela to discuss with Dr. Gautam and let CM or nurse know if they are going to dc home today or tomorrow. No further dc needs known at this time. Conductor/Engineer: Dana Arshad RN,[facility] DCP- Discharge Planning Updated by [email or web address]: Alicia Sawyer on 12/21/18 7:[address] Patient Name: RASHEED BOYD Admission Status: ER Accout number: [id number] Admission Date: 12-19-2018 : 1955 Admission Diagnosis: Attending: MARQUEZ GAUTAM Current LOS: 2 Anticipated DC Date: Planned Disposition: Home Primary Insurance: [employer] TRUE BLUE PPO Discharge Planning Comments: CM MEET WITH PT AFTER GETTING VERBAL CONSENT TO CONTINUE WITH INITAL ASSESSMENT AND DISCHARGE NEEDS. CM EDUCATED ON ROLE OF CM AND THE SERVICES AVALIABLE SUCH HH, REHAB AND DME SERVICES. PT LIVES AT HOME WITH SPOUSE AND HE WILL DRIVE HER HOME AT DC. PT FEELS LIKE HOME IS A SAFE DC PLAN. PT HAS BSC AND WALKER AT HOME. DENIES ANY CM NEEDS AT THIS TIME. CM WILL CONTINUE TO FOLLOW Conductor/Engineer: Alicia Sawyer DCPIA - Discharge Planning Initial Assessment Updated by [email or web address]: Alicia Sawyer on 12/21/18 8:47 am * Is the patient Alert and Oriented? Yes * How many steps to enter\exit or inside your home? * PCP DAIN * Pharmacy [facility] * Preadmission Environment Home with Family * ADLs Independent * Equipment Walker * Other Equipment BSC * List name and contact numbers for known caregivers / representatives who currently or will assist patient after discharge: SHERICE [phone] * Verbal permission to speak to the caregivers and representatives has been obtained from the patient. Yes * Community resources currently utilized None * Additional services required to return to the preadmission environment? No * Can the patient safely return to the preadmission environment? Yes * Has this patient been hospitalized within the prior 30 days at any hospital? No External Providers External Provider: [facility] Next Contact Date: Service Request Date: Service Type: Resolution: Reviewer: Comments: Last DP export: 12/23/18 3:39 p Patient Name: RASHEED BOYD Page 40194 at 1648 All edits/amendments must be made on the electronic document DICTATION DATE: 12/23/181646 AFTER SCHOOL CAREGIVER: ABDULLAHI 12/23/181646 RPT#: [id number] DC DATE: STATUS: ADM IN [facility] [address] [place] [address] END OF REPORT
[2018-12-23] MEDS ORDERED: K-DUR20 MEQ PO (16:49)
[2018-12-23 16:52] VITALS: BP 98/58
--- NOTE | 2018-12-23 19:19 | NUR ---
PT DISCHARGED TO HOME VIA WHEELCHAIR WITH DISCHARGE MEDS AND SUMMARY REVIEWED
--- NOTE | 2018-12-24 09:51 | MORECARE ---
CASE MANAGEMENT DISCHARGE SUMMARY PATIENT: RASHEED BOYD UNIT: [id number] ADM DATE: 12/19/18 AGE: 63 : 57 SEX: F ROOM/BED: D.1212 AUTHOR: BENITA LEAVITT PHYSICIAN: REFERRING PHYSICIAN: MARQUEZ GAUTAM MD DATE OF SERVICE: 12/24/18 Discharge Plan Patient Name: RASHEED BOYD Facility: [facility]:[place] : 1955 Planned Disposition: Home Anticipated Discharge Date: Discharge Date: 12/23/2018 Expected LOS: Initial Reviewer: [email or web address] Initial Review Date: 12/21/2018 Generated: 12/24/18 10:50 am Comments DCP- Discharge Planning Updated by [email or web address]: Dana Arshad on 12/23/18 3:[address] Patient Name: RASHEED BOYD Admission Status: ER Accout number: [id number] Admission Date: 12-19-2018 : 1955 Admission Diagnosis:UNSPECIFIED ABDOMINAL PAIN Attending: MARQUEZ GAUTAM Current LOS: 4 Anticipated DC Date: Planned Disposition: Home Primary Insurance: [employer] TRUE BLUE PPO Discharge Planning Comments: CM met with patient and her to discuss dc planning. CM noted patient is ambulating 500 ft with therapy. CM discussed discharge options of home health and out patient therapy with both patient and her . They discussed options and patient would like home health. JACQUELIN discussed along with providing a list of HH providers. They chose [facility]. Referral faxed to [place]. CM spoke to Sophia @ [place] with the referral information. CM spoke to Marcela at Dr. Gautam's office to let him know that the patient will not qualify for rehab and that the patient and her both feel dc to home is a safe dc plan with home health. Marcela to discuss with Dr. Gautam and let CM or nurse know if they are going to dc home today or tomorrow. No further dc needs known at this time. Attache: Dana Arshad RN,[facility] DCP- Discharge Planning Updated by [email or web address]: Alicia Sawyer on 12/21/18 7:[address] Patient Name: RASHEED BOYD Admission Status: ER Accout number: [id number] Admission Date: 12-19-2018 : 1955 Admission Diagnosis: Attending: MARQUEZ GAUTAM Current LOS: 2 Anticipated DC Date: Planned Disposition: Home Primary Insurance: [employer] TRUE BLUE PPO Discharge Planning Comments: CM MEET WITH PT AFTER GETTING VERBAL CONSENT TO CONTINUE WITH INITAL ASSESSMENT AND DISCHARGE NEEDS. CM EDUCATED ON ROLE OF CM AND THE SERVICES AVALIABLE SUCH HH, REHAB AND DME SERVICES. PT LIVES AT HOME WITH SPOUSE AND HE WILL DRIVE HER HOME AT DC. PT FEELS LIKE HOME IS A SAFE DC PLAN. PT HAS BSC AND WALKER AT HOME. DENIES ANY CM NEEDS AT THIS TIME. CM WILL CONTINUE TO FOLLOW Attache: Alicia Sawyer DCPIA - Discharge Planning Initial Assessment Updated by [email or web address]: Alicia Sawyer on 12/21/18 8:47 am * Is the patient Alert and Oriented? Yes * How many steps to enter\exit or inside your home? * PCP DAIN * Pharmacy [facility] * Preadmission Environment Home with Family * ADLs Independent * Equipment Walker * Other Equipment BSC * List name and contact numbers for known caregivers / representatives who currently or will assist patient after discharge: SHERICE [phone] * Verbal permission to speak to the caregivers and representatives has been obtained from the patient. Yes * Community resources currently utilized None * Additional services required to return to the preadmission environment? No * Can the patient safely return to the preadmission environment? Yes * Has this patient been hospitalized within the prior 30 days at any hospital? No Last DP export: 12/23/18 3:48 p Patient Name: RASHEED BOYD Page 76988 at 0951 All edits/amendments must be made on the electronic document DICTATION DATE: 12/24/18949 AIR CONDITIONING MECHANIC INDUSTRIAL: ABDULLAHI 12/24/18 0950 RPT#: [id number] DC DATE:12/23/18 STATUS: DIS IN [facility] [address] [place] [address] END OF REPORT
== END 2018-12-23 19:36 | disposition home health service (06) | DRG 433 ==
LOC: D.ER 10:41 → D.M3 12:59 → OBSVTIME 12:59 → D.M3 12-19 15:43
PROVIDERS: Emergency Medicine; Internal Medicine Gastroenterology; Radiology Diagnostic Radiology; ADMIT Family Medicine; ATTEND Family Medicine
PROC: 0W9G3ZZ Drainage of Peritoneal Cavity, Percutaneous Approach (ICD-10-PCS; principal; 2018-12-18 16:00)
DX: K70.40 Alcoholic hepatic failure without coma (principal); D61.818 Other pancytopenia; K70.31 Alcoholic cirrhosis of liver with ascites; E87.6 Hypokalemia; E11.9 Type 2 diabetes mellitus without complications; E03.9 Hypothyroidism, unspecified

== ENCOUNTER 2019-01-07 10:43 | Outpatient (CLI) | payer BC ==
[~2019-01-07] VITALS: Ht 170.2 cm; Wt 65.9 kg
[~2019-01-07 10:43] MED LIST changes: +ALEVE220 MG PO; +CHRONULAC30 ML PO; +GABAPENTIN100 MG PO; +K-DUR20 MEQ PO; +LIBRIUM25 MG PO; +PROPRANOLOL HCL20 MG PO
[2019-01-07 11:17] LABS: HEMATOCRIT 31.1 % (36.0-48.0); HEMOGLOBIN 10.6 g/dL (12-16); MCH 27.6 pg (26.0-34.0); MCHC 34.1 g/dL (31.0-37.0); MEAN PLATELET VOLUME 9.2 fL (7.4-10.4); PLATELET COUNT 198 10x3/uL (130-400); RBC 3.84 10x6/uL (4.00-5.40); RDW 17.5 % (11.5-14.5); WBC 3.3 10x3/uL (4.8-10.8)
[2019-01-07 11:25] LABS: ANION GAP 15.1 mmol/L (8-16); BILIRUBIN - TOTAL 1.33 mg/dL (0.2-1.3); CALCIUM 9.5 mg/dL (8.5-10.1); CARBON DIOXIDE 24.5 mmol/L (21.0-32.0); POTASSIUM - SERUM 4.6 mmol/L (3.5-5.1)
[2019-01-07 11:31] LABS: INR 1.14 (0.85-1.17); PROTIME 14.1 SECONDS (11.6-15.0)
[2019-01-07 11:32] LABS: APTT 31.1 SECONDS (22.8-39.4)
[2019-01-07 12:52] LABS: BASOPHILS 1 % (0-2); LYMPHOCYTES 21 % (15-50); MONOCYTES 23 % (2-11); NEUTROPHILS 53 % (40-80); PLATELET ESTIMATE NORMAL; ROULEAUX OCC
[2019-01-07] MEDS ORDERED: PEPCID AC20 MG PO (13:23)
[2019-01-07 13:32] VITALS: BP 124/57; Ht 170.2 cm; Wt 65.9 kg
--- NOTE | 2019-01-07 15:30 | NUR ---
REC'D FROM SPECIALS ACCOMPANIED BY FAMILY. DRESSING CDI TO RIGHT LOWER ABDOMEN.
--- NOTE | 2019-01-07 16:00 | NUR ---
LOI GARRISON SERVED TO PATIENT. SEE FREQUENT VS SHEET. DRESSING CDI TO PROCEDURE SITE. NO C/O VOICED.
--- NOTE | 2019-01-07 16:30 | NUR ---
TOLERATED FL TRAY. INFORMED PATIENT AND FAMILY OF DC TIME PER DR GRAVES.
--- NOTE | 2019-01-07 16:45 | NUR ---
WENT TO RUN AN [employer] AND TOLD PATIENT HE WOULD BE BACK IN TIME TO PICK HER UP.
--- NOTE | 2019-01-07 17:25 | NUR ---
IV DC'D WITH CATHETER INTACT. WRITTEN AND VERBAL DC INST. GIVEN TO PT. VRBALIZED UNDERSTANDING.
--- NOTE | 2019-01-07 17:45 | NUR ---
DC'D HOME WITH FAMILY VIA PRIVATE VEHICLE. STABLE AT TIME OF DC.
== END 2019-01-07 17:45 | disposition home or self-care (01) ==
LOC: D.SP 10:43 → D.CT 14:00 → D.SP 14:00
PROVIDERS: Radiology Vascular & Interventional Radiology; ATTEND Radiology Diagnostic Radiology
DX: R18.8 Other ascites (principal); Z01.812 Encounter for preprocedural laboratory examination

== ENCOUNTER 2019-01-25 10:13 | Outpatient (CLI) | payer BC ==
[~2019-01-25] VITALS: Ht 170.2 cm; Wt 63.6 kg
[~2019-01-25 10:13] MED LIST changes: +PEPCID AC20 MG PO
[2019-01-25 11:30] LABS: BASOPHILS 0.3 % (0-2); EOSINOPHILS 0.6 % (0-7); HEMATOCRIT 31.5 % (36.0-48.0); HEMOGLOBIN 10.6 g/dL (12-16); MCH 26.8 pg (26.0-34.0); MCHC 33.7 g/dL (31.0-37.0); MCV 79.7 fL (80.0-100.0); MEAN PLATELET VOLUME 9.8 fL (7.4-10.4); MONOCYTES 19.9 % (2-11); NEUTROPHILS 60.2 % (40-80); PLATELET COUNT 220 10x3/uL (130-400); RBC 3.95 10x6/uL (4.00-5.40); RDW 16.1 % (11.5-14.5); WBC 3.4 10x3/uL (4.8-10.8)
[2019-01-25 11:33] LABS: ANION GAP 14.8 mmol/L (8-16); CALCIUM 9.3 mg/dL (8.5-10.1); CARBON DIOXIDE 23.2 mmol/L (21.0-32.0); CREATININE - SERUM 0.9 mg/dL (0.6-1.3)
[2019-01-25 11:39] LABS: APTT 31.4 SECONDS (22.8-39.4); INR 1.07 (0.85-1.17); PROTIME 13.4 SECONDS (11.6-15.0)
[2019-01-25 12:47] VITALS: Ht 170.2 cm; Wt 63.6 kg
[2019-01-25 13:27] LABS: ALBUMIN 3.1 g/dL (3.4-5.0); BILIRUBIN - TOTAL 1.12 mg/dL (0.2-1.3); PROTEIN - SERUM 8.3 g/dL (6.4-8.2)
--- NOTE | 2019-01-25 15:29 | NUR ---
DC INSTRUCTIONS GIVEN TO PT. STATES UNDERSTANDING. DC'D IV CATH FULLY INTACT.
--- NOTE | 2019-01-25 15:35 | NUR ---
PT LEFT UNIT VIA WC AT 1540
== END 2019-01-25 15:40 | disposition home or self-care (01) ==
LOC: D.SP 10:13 → D.CT 13:00 → D.SP 13:00
PROVIDERS: General Practice; ATTEND Radiology Diagnostic Radiology
DX: R18.8 Other ascites (principal); K74.60 Unspecified cirrhosis of liver; Z01.812 Encounter for preprocedural laboratory examination

== ENCOUNTER 2019-02-09 12:56 | Outpatient (CLI) | payer BC ==
[~2019-02-09] VITALS: Ht 170.2 cm; Wt 63.6 kg
[2019-02-09 13:34] LABS: BASOPHILS 0.3 % (0-2); EOSINOPHILS 0.7 % (0-7); HEMATOCRIT 28.5 % (36.0-48.0); HEMOGLOBIN 9.4 g/dL (12-16); LYMPHOCYTES 16.3 % (15-50); MCH 26.3 pg (26.0-34.0); MCV 79.6 fL (80.0-100.0); MEAN PLATELET VOLUME 9.5 fL (7.4-10.4); MONOCYTES 23.2 % (2-11); NEUTROPHILS 59.5 % (40-80); PLATELET COUNT 198 10x3/uL (130-400); RBC 3.58 10x6/uL (4.00-5.40); RDW 16.2 % (11.5-14.5); WBC 2.9 10x3/uL (4.8-10.8)
[2019-02-09 13:45] LABS: APTT 28.3 SECONDS (22.8-39.4); INR 1.08 (0.85-1.17); PROTIME 13.5 SECONDS (11.6-15.0)
[2019-02-09 13:50] LABS: ALBUMIN 2.7 g/dL (3.4-5.0); ALKALINE PHOSPHATASE 118 U/L (46-116); ALT (SGPT) 28 U/L (10-68); BILIRUBIN - TOTAL 0.78 mg/dL (0.2-1.3); CALC OSMOLALITY 252 mosm/kg (275-300); CALCIUM 9.1 mg/dL (8.5-10.1); CARBON DIOXIDE 22.4 mmol/L (21.0-32.0); CHLORIDE - SERUM 94 mmol/L (98-107); CREATININE - SERUM 0.7 mg/dL (0.6-1.3); GLUCOSE 114 mg/dL (74-106); POTASSIUM - SERUM 4.7 mmol/L (3.5-5.1); PROTEIN - SERUM 7.4 g/dL (6.4-8.2); SODIUM 126 mmol/L (136-145); UREA NITROGEN 11 mg/dL (7-18); eGFR NON AFRICAN AMERICAN 90 mL/min (90-120)
[2019-02-09 14:03] VITALS: BP 120/73; Ht 170.2 cm; Wt 63.6 kg
== END 2019-02-09 17:50 | disposition home or self-care (01) ==
LOC: D.SP 12:56 → D.CT 15:00 → D.SP 15:00
PROVIDERS: ATTEND Radiology Diagnostic Radiology
DX: R18.8 Other ascites (principal); K74.60 Unspecified cirrhosis of liver; Z01.812 Encounter for preprocedural laboratory examination

== ENCOUNTER → 2019-02-18 09:25 | Outpatient (CLI) | payer BC ==
[2019-02-09 14:03] VITALS: BMI 21.9
== END | disposition home or self-care (01) ==
LOC: D.CT 02-17 10:30
PROVIDERS: ATTEND Radiology Diagnostic Radiology
DX: K76.6 Portal hypertension (principal); K74.60 Unspecified cirrhosis of liver; R18.8 Other ascites

== ENCOUNTER 2019-02-19 08:10 | Outpatient (CLI) | payer BC ==
[~2019-02-19] VITALS: Ht 170.2 cm; Wt 61.4 kg
[2019-02-19 08:38] LABS: HEMATOCRIT 28.8 % (36.0-48.0); HEMOGLOBIN 9.4 g/dL (12-16); MCH 25.5 pg (26.0-34.0); MCHC 32.6 g/dL (31.0-37.0); MCV 78.3 fL (80.0-100.0); MEAN PLATELET VOLUME 9.6 fL (7.4-10.4); PLATELET COUNT 196 10x3/uL (130-400); RBC 3.68 10x6/uL (4.00-5.40); RDW 16.4 % (11.5-14.5); WBC 3.3 10x3/uL (4.8-10.8)
[2019-02-19 08:51] LABS: INR 1.07 (0.85-1.17); PROTIME 13.4 SECONDS (11.6-15.0)
[2019-02-19 08:52] LABS: APTT 30.3 SECONDS (22.8-39.4)
[2019-02-19 09:08] LABS: ALBUMIN 2.9 g/dL (3.4-5.0); ANION GAP 15.5 mmol/L (8-16); BILIRUBIN - TOTAL 0.74 mg/dL (0.2-1.3); CALCIUM 8.9 mg/dL (8.5-10.1); CARBON DIOXIDE 24.1 mmol/L (21.0-32.0); CREATININE - SERUM 0.9 mg/dL (0.6-1.3); POTASSIUM - SERUM 4.6 mmol/L (3.5-5.1); PROTEIN - SERUM 7.5 g/dL (6.4-8.2)
[2019-02-19 09:53] VITALS: BP 118/76; BMI 21.2
[2019-02-19 09:54] VITALS: BP 118/76; Ht 170.2 cm; Wt 61.4 kg
[2019-02-19 10:27] LABS: ANISOCYTOSIS OCC; BASOPHILS 1 % (0-2); HYPOCHROMASIA OCC; LYMPHOCYTES 28 % (15-50); MONOCYTES 14 % (2-11); NEUTROPHILS 57 % (40-80); PLATELET ESTIMATE NORMAL
--- NOTE | 2019-02-19 15:57 | NUR ---
1415 ALL DISCHARGE CRITERIA MET. DC INSTRUCTIONS GIVEN. VOICES UNDERSTANDING. IV REMOVED WITH CATHALON INTACT. DC'D HOME. TAKEN DOWN VIA W/C TO CAR WITH . ADVISED TO CALL OR COME BACK IF ANY PROBLEMS.
== END 2019-02-19 14:15 | disposition home or self-care (01) ==
LOC: D.SP 08:10 → D.CT 11:00 → D.SP 14:15
PROVIDERS: ATTEND General Practice
DX: K74.60 Unspecified cirrhosis of liver (principal); R18.8 Other ascites; Z01.812 Encounter for preprocedural laboratory examination

== ENCOUNTER 2019-02-22 12:29 | Inpatient (IN) | payer BC ==
[~2019-02-22] VITALS: Ht 170.2 cm; Wt 91.4 kg
--- NOTE | ~2019-02-22 | HEMODYNAMI ---
PATIENT:RASHEED BOYD MEDICAL RECORD: [id number] : 57 [facility] ADMISS[facility] DATE: 02/22/19 Generatedon:02/25/201915:45 Patient name: RASHEED BOYD Patient #: [id number] SSN: : 1955 Date of study: 02/25/2019 Page: Of Hemodynamic Procedure Report Patient Data Patient Demographics Procedure consent was obtained First Name: RASHEED Gender: Female Last Name: OLIVER : 1955 Middle Initial: RAJNI Age: 63 year(s) Patient #: [id number] Race: Unknown Additional ID: [id number] Contact details Address: [address] [place] [address] [facility] State: [place] City: [facility] Zip code: [address] Past Medical History Allergies Allergen Reaction Date Comments Reported Sulfa drugs 12/18/2018 Admission Admission Data Admission Date: 02/22/2019 Admission Time: 17:00 Room #: [facility] Procedure Procedure Types Cath Procedure Peripheral Cath Diagnostic Procedure Miscellaneous Procedure Description Procedure Date Procedure Date: 02/25/2019 Procedure Start Time: 13:31 Procedure Staff Name Function Rich Ward MD Performing Physician Michel Verde RT Scrub Dorothy Brush RN Nurse ARIK PINA RT Scrub Calos Arechiga MD Additional personnel Procedure Data Cath Procedure Fluoroscopy Diagnostic fluoroscopy Total fluoroscopy Time: time: 37.9 min 37.9 min Diagnostic fluoroscopy Total fluoroscopy dose: 915 dose: 915 mGy mGy Contrast Material Contrast Material Type Amount (ml) Isovue 300 120 Diagnostic catheters Device Type Used For End Catheter Placement Merit UHF Pigtail VESSEL SIZING 5Fr 65CM catheter ([id number]) DIAGNOSTIC Supertotrque MPA-2 5Fr ([id number]) Cook Cobra 2 5F catheter ([id number]) Hemodynamics Rest Heart Rate: 72 (bpm) Pressure Samples Time Site Value (mmHg) Purpose Heart Use Rate(bpm) 13:58 Hepatic (23) Snapshot 68 13:58 Hepatic (23) Snapshot 69 13:58 Hepatic (23) Snapshot 69 13:59 RA 9/9(9) Snapshot 68 13:59 RA 9/(9) Snapshot 68 13:59 RA 11/11(10) Snapshot 68 13:59 RA 11/16(11) Snapshot 68 15:01 Portal (27) Snapshot 68 15:01 Portal (27) Snapshot 68 15:25 Portal (19) Snapshot 67 15:25 Portal (19) Snapshot 71 15:26 RA 14/13(12) Snapshot 69 15:26 RA 14/13(12) Snapshot 67 Snapshots Pre Cath Intra NCS Post Cath Vital Signs Time Heart Resp SPO2 etCO2 NIBP Rhythm Pain Sedation Rate (ipm) (%) (mmHg) (mmHg) Status Level (bpm) 13:30:27 71 7 99 0 No Cuff NSR 0 (11) 10(A) , No pain 13:34:27 70 10 99 0 No Cuff NSR 0 (11) 10(A) , No pain 13:38:26 70 7 99 0 No Cuff NSR 0 (11) 10(A) , No pain 13:42:26 69 8 99 0 No Cuff NSR 0 (11) 10(A) , No pain 13:46:26 69 8 99 0 No Cuff NSR 0 (11) 10(A) , No pain 13:50:25 68 8 99 0 No Cuff NSR 0 (11) 10(A) , No pain 13:54:25 68 8 99 0 No Cuff NSR 0 (11) 10(A) , No pain 13:58:25 68 8 99 0 No Cuff NSR 0 (11) 10(A) , No pain 14:02:24 67 8 99 0 No Cuff NSR 0 (11) 10(A) , No pain 14:06:24 72 9 99 0 No Cuff NSR 0 (11) 10(A) , No pain 14:10:23 66 9 99 0 No Cuff NSR 0 (11) 10(A) , No pain 14:14:23 67 8 99 0 No Cuff NSR 0 (11) 10(A) , No pain 14:18:23 67 9 99 0 No Cuff NSR 0 (11) 10(A) , No pain 14:22:23 72 11 99 0 No Cuff NSR 0 (11) 10(A) , No pain 14:26:22 66 11 99 0 No Cuff NSR 0 (11) 10(A) , No pain 14:30:22 69 11 99 0 No Cuff NSR 0 (11) 10(A) , No pain 14:34:22 66 12 99 0 No Cuff NSR 0 (11) 10(A) , No pain 14:38:21 66 11 99 0 No Cuff NSR 0 (11) 10(A) , No pain 14:42:21 67 12 98 0 No Cuff NSR 0 (11) 10(A) , No pain 14:46:20 67 13 98 0 No Cuff NSR 0 (11) 10(A) , No pain 14:50:20 67 12 98 0 No Cuff NSR 0 (11) 10(A) , No pain 14:54:20 68 11 98 0 No Cuff NSR 0 (11) 10(A) , No pain 14:58:19 69 12 98 0 No Cuff NSR 0 (11) 10(A) , No pain 15:02:19 65 11 98 0 No Cuff NSR 0 (11) 10(A) , No pain 15:06:19 78 12 99 0 No Cuff NSR 0 (11) 10(A) , No pain 15:10:18 69 15 99 0 No Cuff NSR 0 (11) 10(A) , No pain 15:14:18 63 11 99 0 No Cuff NSR 0 (11) 10(A) , No pain 15:18:18 74 10 99 0 No Cuff NSR 0 (11) 10(A) , No pain 15:22:17 66 11 99 0 No Cuff NSR 0 (11) 10(A) , No pain 15:26:17 67 11 99 0 No Cuff NSR 0 (11) 10(A) , No pain 15:30:17 71 11 99 0 No Cuff NSR 0 (11) 10(A) , No pain 15:34:16 67 12 99 0 No Cuff NSR 0 (11) 10(A) , No pain 15:38:16 78 12 100 0 No Cuff NSR 0 (11) 10(A) , No pain 15:42:15 73 13 100 0 No Cuff NSR 0 (11) 10(A) , No pain Procedure Log Time Note 12:40:26 Calos Arechiga MD present and monitoring patient for TIVA. 12:40:32 Michel Landisreginald RT (R) (CV) sent for patient. Start room use. 12:40:40 Time tracking: Regular hours (M-F 7:00 - 5:00) 12:40:45 Plan of Care:Hemodynamics will remain stable., Cardiac rhythm will remain stable., Comfort level will be maintained., Respiratory function will remain adequate., Patient/ family verbilizes understanding of procedure., Procedure tolerated without complication., Recovers from procedure without complications.. 12:40:55 Patient received from Med/Surg to IR Alert and oriented. Tansferred to table in Supine position. 12:40:58 Signed procedure consent form obtained from patient. 12:40:58 Warm blankets applied, and esthela hugger turned on for patient comfort. 12:41:00 Correct patient and procedure confirmed by team. 12:41:01 ECG and BP/O2 sat monitors applied to patient. 12:41:02 Full Disclosure recording started 12:41:03 - 12:41:22 SEE ANESTHESIA NOTE FOR PRE PROCEDURE TIVA 12:41:24 - 12:41:36 Right abdomen area was prepped with chlora-prep and draped in sterile fashion 12:41:46 Right neck area was prepped with chlora-prep and draped in sterile fashion 12:41:53 Use device set IR Diagnostic 12:41:54 ACIST Syringe (16768) opened to sterile field. 12:41:55 ACIST Hand Control (20777) opened to sterile field. 12:41:55 ACIST Manifold (62219) opened to sterile field. 12:41:55 Bag Decanter () opened to sterile field. 12:41:56 Sterile Angiographic Pack opened to sterile field. 12:41:56 Tegaderm 4 x 4 (1626W) opened to sterile field. 13:24:31 Physician arrived 13:24:32 --------ALL STOP TIME OUT------ 13:24:33 Final Timeout: patient, procedure, and site verified with staff and physician. All members of the team are in agreement. 13:24:37 Right abdomen site verified by team. 13:24:42 Right neck site verified by team. 13:25:13 1) 90+ Normal kidney functon but urine findings or structural abnormalities or genetic trait point to kidney disease. 13:25:18 Procedure started. 13:25:28 Local anesthetic to Abdominal area with Lidocaine 1% by Rich Ward MD.INITIAL ACCESS ONLY 13:25:46 [id number]-[id number] 8FR CATH DRAIN TRAY opened to sterile field. 13:25:49 [facility] 145cm wire (H54379) opened to sterile field. 13:25:49 TUBING Contrast Injection High Pressure (FYL991D) opened to sterile field. 13:25:50 TUBING Contrast Injection High Pressure (BYN508Q) opened to sterile field. 13:25:50 KIT, TRANSJUGULAR LIVER ACCESS R opened to sterile field. 13:25:51 Micropuncture VSI 4FR kit opened to sterile field. 13:25:51 INFLATOR BasixTOUCH (NP0228) opened to sterile field. 13:25:53 A Merit [facility] Pigtail VESSEL SIZING 5Fr 65CM catheter ([id number]) was advanced over the wire and used for . 13:25:55 A DIAGNOSTIC Supertotrque MPA-2 5Fr (679055) was advanced over the wire and used for . 13:29:18 PARACENTESIS PERFORMED 13:29:35 Local anesthetic to right IJ vein with Lidocaine 1% by Rich Ward MD.ADDITIONAL ACCESS 13:29:53 Baseline sample Acquired. 13:30:02 Vital chart was started 13:50:14 A Cook Cobra 2 5F catheter (B74042) was advanced over the wire and used for . 13:52:20 GLIDE CATHETER 5FR ANGLED 65cm (CG507) opened to sterile field. 13:57:14 Zero performed for pressure channel P1 13:58:00 Zero performed for pressure channel P1 14:00:15 AMPLATZ Short Taper 260cm wire ([id number]) opened to sterile field. 14:10:16 GLIDE WIRE ANGLE 260cm (WR5393) opened to sterile field. 14:12:40 STOPCOCK 3-Way Large Bore (X71933) opened to sterile field. 14:12:40 TUBING Contrast Injection High Pressure (NKZ312E) opened to sterile field. 14:24:59 TORQUE DEVICE PLASTIC .038 ( TD01) opened to sterile field. 14:54:57 Inflate balloon Inflation number: 1 A Evercross 5 x 8 x 135 Balloon ([id number]) was prepped and advanced across the Undefined1 , then inflated to 10 JOAQUÍN for 0:02 (min:sec) . 15:07:50 Inflate balloon Inflation number: 2 A Evercross 8 x 8x 135 Balloon ([id number]) was prepped and advanced across the Undefined1 , then inflated to 7 JOAQUÍN for 0:02 (min:sec) . 15:15:29 VIATORR 10x8 stent ([id number]) was deployed across Undefined1 . 15:28:08 Tegaderm 4 x 4 (1626W) opened to sterile field. 15:28:08 Tegaderm 4 x 4 (1626W) opened to sterile field. 15:31:20 Procedure ended.(Physican Out) 15:37:12 Fluoroscopy time 37.90 minutes. 15:37:18 Fluoroscopy dose: 915 mGy 15:37:18 Flurop Dose total: 915 15:37:26 Contrast amount:Isovue 300 120ml. 15:37:29 Sharps counted by scrub and verified by R.N. 15:37:31 Insertion/operative site no bleeding no hematoma. 15:37:36 Post-op/insertion site Right Jugular vein dressed using a 4 x 4 and Tegaderm. 15:37:40 Post-op/insertion site Right Abdominal area dressed using a 4 x 4 and Tegaderm. 15:37:45 Post right IJ vein:stable 15:37:52 Post Abdominal area:stable 15:38:48 SEE ANESTHESIA NOTE FOR GENERAL ANESTHEIA POST PROCEDURE 7900ML DRAINED 15:45:05 Report given to Recovery Room. 15:45:09 Patient transfered to Recovery Room with Bed. 15:45:36 Vital chart was stopped Intervention Summary Intervention Notes Time ActionType Lesion and Equipment Used Action# Pressure Duration Attributes 14:54:57 Inflate Undefined1 Evercross 5 x 8 1 10 00:02 balloon x 135 Balloon ([id number]) 15:07:50 Inflate Undefined1 Evercross 8 x 6 2 7 00:02 balloon x 135 Balloon ([id number]) 15:15:29 Deploy self Undefined1 VIATORR 10x8 1 expanding stent stent ([id number]) Device Usage Item Name Manufacture Quantity Catalog Number Hospital Part Current M inimal Lot# / Charge Number Stock Stock Serial# Code ACIST Syringe Acist 1 10449 382361 567351 051020 2 0 (18540) Medical Systems Codingpeople ACIST Hand Acist 1 94943 522353 375566 718661 5 Control (48172) Medical Systems Inc ACIST Manifold Acist 1 53965 030971 340176 810284 5 (74377) Medical Systems Inc Bag Decanter Microtek 1 2001S 883705 12654 736700 5 (2001S) Medical Inc. Sterile Cardinal 1 [id number] 736311 708012 5 Angiographic Health Pack Tegaderm 4 x 4 3M 3 1626W 295803 154365 675696 5 (1626W) [id number] CareFusion 1 [id number] 391758 041623 5 8FR CATH DRAIN TRAY BENTSON 145cm Vibrant Corporation Medical 1 [id number] 038675 078696 5 wire (D92128) TUBING Contrast Merit 3 [id number] 091241 566743 051858 5 Injection High Medical Pressure (EYM905G) KIT, Cook Medical 1 L66626 024584 867054 5 [id number] TRANSJUGULAR LIVER ACCESS R Micropuncture VSI VASCULAR 1 7266V 068485 698490 5 VSI 4FR kit SOLUTIONS INFLATOR Merit 1 ZB8636 298017 706208 918677 5 BasixEmpower Interactive Group Medical (EJ3253) Merit UHF Merit 1 [id number] 626098 279463 5 Pigtail VESSEL Medical SIZING 5Fr 65CM catheter ([id number]) DIAGNOSTIC Cardinal 1 568465 923506 961286 817243 5 Tilt MPA-2 5Fr (242628) Cook Cobra 2 5F Cook Medical 1 U87371 337625 802177 5 catheter ([id number]) GLIDE CATHETER Terumo 1 CG507 479028 491274 5 5FR ANGLED 65cm (CG507) AMPLATZ Short [place] 1 [id number] 334012 059654 992459 5 [id number] Taper 260cm Scientific wire ([id number]) GLIDE WIRE Terumo 1 NB0691 343175 662754 665872 5 ANGLE 260cm (FF6349) STOPCOCK 3-Way Cook Medical 1 S29979 837519 4776 503183 5 [id number] Large Bore (D11495) TORQUE DEVICE [place] 1 TD01 010457 440088 698181 5 PLASTIC .038 ( Scientific TD01) Evercross 5 x 8 Medtronic 1 [id number] 808825 648814 855603 5 x 135 Balloon ([id number]) Evercross 8 x 6 Medtronic 1 [id number] 367431 983584 270016 5 x 135 Balloon ([id number]) VIATORR 10x8 [place] 1 [id number] 969688 213750 232509 5 stent ([id number]) Signature Audit [place] Stage Time Signature Unsigned Intra-Procedure 02/25/2019 Michel 3:45:30 PM [place] RT (R) (CV) [facility] [address] [place] [address]
--- NOTE | ~2019-02-22 | CN ---
PATIENT NAME:RASHEED BOYD MEDICAL RECORD: [id number] : 57 LOCATION:[facility]2310 ADMIT DATE: 02/22/19 ACCOUNT: [id number] CONSULTING PHYSICIAN: MAGUI VERNON MD REFERRING PHYSICIAN: ARMAND GAUTAM MD DATE OF CONSULTATION: 02/28/2019 CONSULT REQUESTING PHYSICIAN: Armand Gautam MD (Bill) REASON FOR CONSULTATION: Acute mental status changes and hypotension. HISTORY OF PRESENT ILLNESS: Ms. Boyd is a 63-year-old female who has a history of alcoholic cirrhosis of the liver and ascites. She will need paracentesis every 7-8 days by IR. The patient had a fall and had comminuted nondisplaced fracture of the right sacrum. The patient was admitted to the hospital. Last night, she became hypotensive and the patient was brought into the ICU. Now, she is more awake and alert. Her blood pressure stayed above 100 after starting low dose of Levophed. REVIEW OF THE SYSTEMS: As in history of present illness. PAST MEDICAL HISTORY: 1. Alcoholic cirrhosis of the liver. 2. Ascites, requires frequent paracentesis. 3. Noninsulin-dependent diabetes mellitus. 4. Hypothyroidism. 5. Anxiety and depression. 6. History of iron-deficiency anemia. PAST SURGICAL HISTORY: 1. Hysterectomy. 2. Umbilical hernia repair. 3. Recurrent umbilical hernia repair in August 2018. ALLERGIES: SHE IS ALLERGIC TO AMBIEN, HYDROCODONE, AND SULFA. MEDICATIONS: Space Race was reviewed. PERSONAL AND SOCIAL HISTORY: She has a long history of alcohol consumption. She has quit drinking. FAMILY HISTORY: Noncontributory. PHYSICAL EXAMINATION: GENERAL: Now, the patient is lying comfortably in bed. She is not in acute distress. VITAL SIGNS: The blood pressure is 102/68, pulse is 84, respiration is 20, temperature is 98.8, and SpO2 is 96% on 3 liters nasal cannula. HEENT: Conjunctivae are pale. Sclerae are icteric. NECK: Neck is supple. No JVD. CHEST: The chest excursion is minimal on both sides. There is no wheeze and no rale. HEART: Rhythm regular. Normal sound. No murmur. ABDOMEN: Abdomen is soft. Bowel sounds present. No hepatosplenomegaly. The abdomen is distended. CONSULT REPORT [id number] RASHEED BOYD RECTAL: Deferred. EXTREMITIES: No cyanosis. No clubbing. No pedal edema. CENTRAL NERVOUS SYSTEM: There is no obvious cranial nerve abnormality. The patient is awake, but she is confused. LABORATORY DATA: CBC on the 27 of February; WBC was 7.7, hemoglobin was 7.1, hematocrit 22.3, and platelet count was 122. The repeat CBC; WBC 9.2, hemoglobin 9.5, hematocrit 29.2, and platelet count 119. Chemistry; sodium 132, potassium 3.7, BUN 14, and creatinine is 1. The ammonia level is 25, before it was 118. IMPRESSION: 1. Acute hypoxic respiratory failure, possible associated atelectasis in lower lobe. There is no chest x-ray available. 2. Hypotension, most likely secondary to blood loss due to TIPS procedure on 25 of February. 3. Anemia secondary to blood loss and chronic liver disease. 4. Hepatic encephalopathy. 5. Acute mental status changes secondary to hepatic encephalopathy. 6. Cirrhosis of liver secondary to alcoholism. 7. Ascites. 8. Fracture of the right hip. RECOMMENDATION: 1. We will follow up on the blood culture. 2. Levophed to keep the systolic blood pressure above 90. 3. Continue lactulose. 4. Follow up H&H and ammonia level. I will check chest radiograph to rule out any infiltrate. I discussed with Dr. Gautam. Dr. Gautam, thank you for involving me in the care of Ms. Boyd. TRANSINT:[id number] Voice Confirmation ID: [id number] DOCUMENT ID: [id number] MAGUI VERNON MD CC: [id number] DICTATION DATE: 02/28/19 135 ALGORITHM DEVELOPER: 02/28/19 1653 ADM IN [facility] [address] [place] [address]
--- NOTE | 2019-02-22 13:00 | NUR ---
TRAUMA BAND [id number]
[2019-02-22 15:08] VITALS: BP 108/74
--- NOTE | 2019-02-22 15:08 | NUR ---
RECEIVED REPORT FROM SERAFIN MYERS. PT LAYING IN BED. RESPIRATIONS ARE EVEN AND UNLABORED. NO DISTRESS NOTED. PROVIDED PT WITH WARM BLANKET. VSS. WILL CONTINUE TO MONITOR PATIENT.
[2019-02-22 15:15] LABS: BASOPHILS 0.3 % (0-2); EOSINOPHILS 0 % (0-7); HEMATOCRIT 27.8 % (36.0-48.0); HEMOGLOBIN 9.2 g/dL (12-16); IMMATURE GRANULOCYTES 0.3 % (0-5); LYMPHOCYTES 9.5 % (15-50); MCH 25.2 pg (26.0-34.0); MCHC 33.1 g/dL (31.0-37.0); MCV 76.2 fL (80.0-100.0); MEAN PLATELET VOLUME 9.3 fL (7.4-10.4); MONOCYTES 18.2 % (2-11); NEUTROPHILS 71.7 % (40-80); PLATELET COUNT 184 10x3/uL (130-400); RBC 3.65 10x6/uL (4.00-5.40); RDW 16.2 % (11.5-14.5); WBC 3.6 10x3/uL (4.8-10.8)
[2019-02-22 16:22] LABS: ALBUMIN 3.2 g/dL (3.4-5.0); ANION GAP 16.8 mmol/L (8-16); BILIRUBIN - TOTAL 1.07 mg/dL (0.2-1.3); C-REACTIVE PROTEIN 1.5 mg/dL (0.0-0.9); CALCIUM 8.8 mg/dL (8.5-10.1); CARBON DIOXIDE 21.3 mmol/L (21.0-32.0); CREATININE - SERUM 0.9 mg/dL (0.6-1.3); POTASSIUM - SERUM 4.1 mmol/L (3.5-5.1); PROTEIN - SERUM 7.4 g/dL (6.4-8.2)
--- NOTE | 2019-02-22 16:46 | NUR ---
PROVIDED PT WITH DIET SODA.
--- NOTE | 2019-02-22 17:51 | NUR ---
PT AWAKE AND ORIENTED, ARRIVED IN ROOM. UNABLE TO WALK/TRANSFER HERSELF. C/O PAIN ON HIPS. CL IN REACH, [id number]
[2019-02-22] MEDS ORDERED: GABAPENTIN100 MG PO (18:25)
[2019-02-22] MEDS ORDERED: ATIVAN0.5 MG PO (18:26)
[2019-02-22 20:19] VITALS: BP 104/59
[2019-02-23 00:29] VITALS: BP 111/64
[2019-02-23 00:41] VITALS: BMI 20.4
--- NOTE | 2019-02-23 04:16 | NUR ---
REC'D. IN BED SITTING POSITION WATCHING TV. INQUIRED PAIN LEVEL STATES 0 LONG I DON'T MOVE INSTRUCTED CAN'T LAY IN ONE SPOT AND THAT PHYSICAL THERAPY WILL BE WORKING WITH YOU IN AM.VOICES UNDERSTANDING.WILL CONTINUE TO MONITOR FOR ANY CHGES. AND FOLLOW CURRENT PLAN OF CARE.
[2019-02-23 04:31] VITALS: BP 98/60
--- NOTE | 2019-02-23 05:00 | NUR ---
I have reviewed this patient and I concur with the Shift Assessment completed by the Licensed Practical Nurse today this shift.
[2019-02-23 06:24] LABS: HEMATOCRIT 26.3 % (36.0-48.0); HEMOGLOBIN 8.6 g/dL (12-16); MCH 25.2 pg (26.0-34.0); MCHC 32.7 g/dL (31.0-37.0); MCV 77.1 fL (80.0-100.0); MEAN PLATELET VOLUME 9.8 fL (7.4-10.4); PLATELET COUNT 174 10x3/uL (130-400); RBC 3.41 10x6/uL (4.00-5.40); RDW 16.5 % (11.5-14.5)
[2019-02-23 06:38] LABS: ALBUMIN 2.7 g/dL (3.4-5.0); BILIRUBIN - TOTAL 0.71 mg/dL (0.2-1.3); CALCIUM 8.3 mg/dL (8.5-10.1); CARBON DIOXIDE 22.7 mmol/L (21.0-32.0); CREATININE - SERUM 0.9 mg/dL (0.6-1.3); POTASSIUM - SERUM 3.7 mmol/L (3.5-5.1); PROTEIN - SERUM 6.8 g/dL (6.4-8.2); WBC 2.4 10x3/uL (4.8-10.8)
--- NOTE | 2019-02-23 07:30 | NUR ---
PT RESTING IN BED WATCHING TV. NO ACUTE DISTRESS NOTED. REPORTS PAIN 3/10 AT THIS TIME. MORPHINE CYLINDER VALVE REPAIRER INTACT AND IN USE. IV TO LEFT WRIST WITH NS @ 30ML/HR INFUSING VIA PUMP. SITE WITHOUT REDNESS OR EDEMA. DENIES FURTHER NEEDS AT THIS TIME. CL WITHIN REACH. ENCOURAGED TO CALL WITH NEEDS. CONTINUE POC
[2019-02-23 08:32] VITALS: BP 110/65
[2019-02-23 08:58] LABS: EOSINOPHILS 1 % (0-7); LYMPHOCYTES 8 % (15-50); MONOCYTES 18 % (2-11); NEUTROPHILS 72 % (40-80); PLATELET ESTIMATE NORMAL
--- NOTE | 2019-02-23 10:29 | HP ---
PATIENT: RASHEED BOYD MEDICAL RECORD: [id number] ACCOUNT: [id number] LOCATION:[facility] : 57 ADMISSION DATE: 02/22/19 PCP: MARQUEZ GAUTAM MD HISTORY AND PHYSICAL EXAMINATION DATE OF ADMISSION: 02/22/2019. CHIEF COMPLAINT: Right hip pain. HISTORY OF PRESENT ILLNESS: This is a 63-year-old female with a known history of alcoholic cirrhosis with ascites was walking outside her house, going to her car. She went down a couple of steps and missed a step and fell. She complains of pain to her right hip. She had her cell phone with her and was able to call EMS. She cannot walk due to pain. In the Emergency Room, she was found to have comminuted nondisplaced fractures of the right sacral ala and comminuted fracture of the right superior and inferior pubic rami. She also had large volume ascites in the pelvis. She is admitted for pain and inability to walk. PAST MEDICAL AND SURGICAL HISTORY: Alcoholic cirrhosis with ascites. She has been getting paracentesis by interventional radiology about every 7 or 8 days. She has anxiety, noninsulin dependent diabetes, hypothyroidism, depression, and iron deficiency anemia. She has low white blood cell count with workup in the past by Dr. Garcia and it was felt this was due to alcohol. PAST SURGICAL HISTORY: Hysterectomy, umbilical hernia repair, and recurrent umbilical hernia repair in August of 2018. ALLERGIES: AMBIEN, HYDROCODONE, AND SULFA. HOME MEDICATIONS: Aldactone 100 mg twice a day, gabapentin 200 mg twice a day, Ativan 0.5 mg b.i.d. p.r.n. anxiety, Lasix 40 mg a day, potassium 20 mEq a day, levothyroxine 75 mcg a day, metformin 1000 mg twice a day, Prilosec 20 mg a day. HABITS: Former smoker. She has a long history of alcohol consumption and has reportedly quit. No illicit drug use. FAMILY HISTORY: Father is . He had diabetes. Mother is living. Maternal grandmother of breast cancer. REVIEW OF SYSTEMS: CONSTITUTIONAL: Weight has fluctuated more recently due to her fluid status. HEENT: No sinus or allergy problems. RESPIRATORY: No history of emphysema or asthma. CARDIAC: No known coronary disease. GASTROINTESTINAL: See above history. She has been seen by Dr. Montejo in the past at [facility], but not really followed by a GI doctor at this time due to her liver failure. GENITOURINARY: No significant problems there. MUSCULOSKELETAL: No significant arthritic aches and pains. NEUROLOGIC: No seizures or migraines. PSYCHIATRIC: She has depression and anxiety. PHYSICAL EXAMINATION: VITAL SIGNS: Temperature 98.1, pulse 97, respirations 18, blood pressure 108/74. HISTORY AND PHYSICAL [id number] RASHEED BOYD GENERAL: She is lying in hospital bed complaining of pain in the right hip and pelvis area. SKIN: Warm and dry. HEENT: Grossly within normal limits. NECK: Supple. HEART: Regular rate and rhythm without murmur. LUNGS: Clear. ABDOMEN: Soft, distended due to ascites. There is tenderness in the right hip/pelvis area. EXTREMITIES: 1-2+ edema. LABORATORY DATA: CBC with a white count of 3600, hemoglobin 9.2, hematocrit 27.8, platelets 184,000. Basic metabolic panel: Sodium 128, potassium 4.1, chloride 94, CO2 21.3, BUN 9, creatinine 0.9, glucose 110, calcium 8.8. C-reactive protein 1.5, albumin 3.2. Liver functions all are normal. X-RAYS: CT of the head shows no acute fracture or abnormalities. CT of the cervical spine shows no acute fracture or abnormality. CT of the pelvis shows comminuted nondisplaced fracture in the right sacral ala and comminuted fracture of the right superior and inferior pubic rami. There is a large volume ascites in the pelvis. ASSESSMENT: Fall at home with pelvic fractures, admitted for pain control and inability to walk. PLAN: Control her pain. We will watch for DTs. Continue her usual home medications. Other tests or procedures as warranted. TRANSINT:[id number] Voice Confirmation ID: [id number] DOCUMENT ID: [id number] MARQUEZ GAUTAM MD at 1029 CC: [id number] DICTATION DATE: 02/23/19846 HOSPICE MANAGER: 02/23/19924 ADM IN [facility] [address] [place] [address]
[2019-02-23 13:15] VITALS: BP 105/64
[2019-02-23 17:33] VITALS: BP 101/61
--- NOTE | 2019-02-23 20:05 | NUR ---
SITTING UP IN BED WATCHING TV. ALERT AND ORIENTED X4. RESP EVEN AND NONLABORED. NO DISTRESS. ABD DISTENDED AND FIRM. SKIN IS JAUNDICED. DENIES PAIN. MORPHINE RECORDAK OPERATOR IN USE. NS @ 125 ML/HR INFUSING IN LT WRIST WITHOUT DIFF. BRUISES NOTED TO BUE AND BLE. SKIN TEAR NOTED TO RT ELBOW. ITCHING ALL OVER. STATES THIS IS NOT NEW. BRANDI ALARM ON FOR PT SAFETY. SR ELEVATED X2. CL IN REACH.
[2019-02-23 21:14] VITALS: BP 106/70
--- NOTE | 2019-02-23 23:00 | NUR ---
ASSISTED ONTO BEDPAN AT THIS TIME. DENIES PAIN. CL IN REACH. BRANDI ALARM IN USE. CL IN REACH.
[2019-02-24 01:27] VITALS: BP 102/68
--- NOTE | 2019-02-24 02:30 | NUR ---
HAS RESTED WELL SO FAR THIS SHIFT. NO DISTRESS. BRANDI ALARM ON. CL IN REACH.
[2019-02-24 05:05] VITALS: BP 105/66
[2019-02-24 09:10] VITALS: BP 104/64
[2019-02-24 12:03] VITALS: BP 115/70
[2019-02-24 16:39] VITALS: BP 109/79
--- NOTE | 2019-02-24 20:00 | NUR ---
ALERT RESTING IN BED, NO APPARENT DISTRESS, CALL ETHEL MALIN, SEE SHIFT ASSESSMENT
[2019-02-24 20:33] VITALS: BP 104/67
[2019-02-25] VITALS (16 sets, daily range): BP systolic 84–124; BP diastolic 47–74
[2019-02-25 06:00] LABS: HEMATOCRIT 26.2 % (36.0-48.0); HEMOGLOBIN 8.8 g/dL (12-16); MCHC 33.6 g/dL (31.0-37.0); MCV 77.3 fL (80.0-100.0); MEAN PLATELET VOLUME 9.9 fL (7.4-10.4); PLATELET COUNT 156 10x3/uL (130-400); RBC 3.39 10x6/uL (4.00-5.40); RDW 16.4 % (11.5-14.5)
[2019-02-25 06:08] LABS: APTT 31.5 SECONDS (22.8-39.4); INR 1.16 (0.85-1.17); PROTIME 14.3 SECONDS (11.6-15.0)
[2019-02-25 06:22] LABS: ALBUMIN 2.3 g/dL (3.4-5.0); ALKALINE PHOSPHATASE 93 U/L (46-116); ALT (SGPT) 18 U/L (10-68); BILIRUBIN - TOTAL 0.89 mg/dL (0.2-1.3); CALC OSMOLALITY 261 mosm/kg (275-300); CALCIUM 8.1 mg/dL (8.5-10.1); CARBON DIOXIDE 21.8 mmol/L (21.0-32.0); CHLORIDE - SERUM 100 mmol/L (98-107); GLUCOSE 112 mg/dL (74-106); POTASSIUM - SERUM 4.1 mmol/L (3.5-5.1); PROTEIN - SERUM 6.1 g/dL (6.4-8.2); SODIUM 131 mmol/L (136-145); UREA NITROGEN 6 mg/dL (7-18)
[2019-02-25 06:25] LABS: CREATININE - SERUM 0.6 mg/dL (0.6-1.3); eGFR NON AFRICAN AMERICAN > 90 mL/min (90-120)
[2019-02-25 08:15] LABS: ANISOCYTOSIS OCC; EOSINOPHILS 4 % (0-7); HYPOCHROMASIA OCC; LYMPHOCYTES 21 % (15-50); MONOCYTES 18 % (2-11); NEUTROPHILS 53 % (40-80); PLATELET ESTIMATE NORMAL
--- NOTE | 2019-02-25 10:59 | MORECARE ---
CASE MANAGEMENT DISCHARGE SUMMARY PATIENT: RASHEED BOYD UNIT: [id number] ADM DATE: 02/22/19 AGE: 63 : 57 SEX: F ROOM/BED: [facility] AUTHOR: BENITA LEAVITT PHYSICIAN: REFERRING PHYSICIAN: MARQUEZ GAUTAM MD DATE OF SERVICE: 02/25/19 Discharge Plan Patient Name: RASHEED BOYD Facility: [facility]:[place] : 1955 Planned Disposition: Inpatient Rehab Anticipated Discharge Date: Discharge Date: Expected LOS: Initial Reviewer: [email or web address] Initial Review Date: 02/25/2019 Generated: 02/25/19 11:58 am Patient Name: RASHEED BOYD Page 27860 at 1059 All edits/amendments must be made on the electronic document DICTATION DATE: 02/25/19 1058 POSTPARTUM NURSE: ABDULLAHI 02/25/19 1058 RPT#: [id number] DC DATE: STATUS: ADM IN [facility] [address] [place] [address] END OF REPORT
--- NOTE | 2019-02-25 11:06 | MORECARE ---
CASE MANAGEMENT DISCHARGE SUMMARY PATIENT: RASHEED BOYD UNIT: [id number] ADM DATE: 02/22/19 AGE: 63 : 57 SEX: F ROOM/BED: D.2237 AUTHOR: TREE,DOC PHYSICIAN: REFERRING PHYSICIAN: MARQUEZ GAUTAM MD DATE OF SERVICE: 02/25/19 Discharge Plan Patient Name: RASHEED BOYD Facility: [facility]:[place] : 1955 Planned Disposition: Inpatient Rehab Anticipated Discharge Date: Discharge Date: Expected LOS: Initial Reviewer: [id number] Initial Review Date: 02/25/2019 Generated: 02/25/19 12:06 pm Comments DCP- Discharge Planning Updated by [id number]: Mary Martinez on 02/25/19 10:[address] Patient Name: RASHEED BOYD Admission Status: ER Accout number: [id number] Admission Date: 02-22-2019 : 1955 Admission Diagnosis:OTHER FRACTURE OF SACRUM, INIT ENCNTR FOR CLOSED FRACTU Attending: MARQUEZ GAUTAM Current LOS: 3 Anticipated DC Date: Planned Disposition: Inpatient Rehab Primary Insurance: [employer] TRUE BLUE PPO Discharge Planning Comments: CM met with patient to discuss discharge planning/needs, her sister from [place] is in the room and verbal consent received to discuss discharge planning/needs with sister present. She was independent prior to arrival. She lives with her in a one level home. I discussed the availability of inpatient rehab, SNF, home health and DME. I informed her that Dr. Gautam suggests rehab or skilled facility. She would like a referral sent to [facility] inpatient rehab and if her insurance is not accepted to [facility]. Inpatient rehab screen ordered. CM will continue to follow and assist with discharge planning/needs. Face Burler: Mary Martinez DCPIA - Discharge Planning Initial Assessment Updated by [id number]: Mary Martinez on 02/25/19 11:02 am * Is the patient Alert and Oriented? Yes * How many steps to enter\exit or inside your home? 2/0 * PCP Dr. Gautam * Pharmacy [facility] in [place] * Preadmission Environment Home with Family * ADLs Partial Dependent * Partial ADLs (Assistance needed) Ambulation * Equipment Bedside Commode Crutch Walker * List name and contact numbers for known caregivers / representatives who currently or will assist patient after discharge: Vladislav Boyd - spouse - [phone] Jossie Galarza - sister - [phone] * Verbal permission to speak to the caregivers and representatives has been obtained from the patient. Yes * Community resources currently utilized None * Additional services required to return to the preadmission environment? Yes * Can the patient safely return to the preadmission environment? No * Has this patient been hospitalized within the prior 30 days at any hospital? No Last DP export: 02/25/19 9:58 a Patient Name: RASHEED BOYD Page 40449 at 1106 All edits/amendments must be made on the electronic document DICTATION DATE: 02/25/191104 SAVINGS TELLER: ABDULLAHI 02/25/191104 RPT#: [id number] DC DATE: STATUS: ADM IN [address] [place] [address] END OF REPORT
--- NOTE | 2019-02-25 12:25 | NUR ---
Rehab Note- Acute Inpatient Rehab prescreen order received. The patient has [employer] True Blue insurance & cannot be accepted to [facility] Acute Inpatient Rehab- have spoken to GABE Hernandez. Thank you for this referral! Jazmín Chen RN Clinical Liaison, [facility] Rehab
--- NOTE | 2019-02-25 12:38 | MORECARE ---
CASE MANAGEMENT DISCHARGE SUMMARY PATIENT: RASHEED BOYD UNIT: [id number] ADM DATE: 02/22/19 AGE: 63 : 57 SEX: F ROOM/BED: D.2237 AUTHOR: BENITA LEAVITT PHYSICIAN: REFERRING PHYSICIAN: MARQUEZ GAUTAM MD DATE OF SERVICE: 02/25/19 Discharge Plan Patient Name: RASHEED BOYD Facility: [facility]:[place] : 1955 Planned Disposition: Inpatient Rehab Anticipated Discharge Date: Discharge Date: Expected LOS: Initial Reviewer: [email or web address] Initial Review Date: 02/25/2019 Generated: 02/25/19 1:37 pm Comments DCP- Discharge Planning Updated by [id number]: Mary Martinez on 02/25/19 11:[address] [facility] inpatient rehab does not accept patient's insurance. I informed the patient and sent referral to [facility]. CM will continue to follow and assist with discharge planning/needs. DCP- Discharge Planning Updated by [id number]: Mary Martinez on 02/25/19 10:[address] Patient Name: RASHEED BOYD Admission Status: ER Accout number: [id number] Admission Date: 02-22-2019 : 1955 Admission Diagnosis:OTHER FRACTURE OF SACRUM, INIT ENCNTR FOR CLOSED FRACTU Attending: MARQUEZ GAUTAM Current LOS: 3 Anticipated DC Date: Planned Disposition: Inpatient Rehab Primary Insurance: [employer] TRUE BLUE PPO Discharge Planning Comments: CM met with patient to discuss discharge planning/needs, her sister from [place] is in the room and verbal consent received to discuss discharge planning/needs with sister present. She was independent prior to arrival. She lives with her in a one level home. I discussed the availability of inpatient rehab, SNF, home health and DME. I informed her that Dr. Gautam suggests rehab or skilled facility. She would like a referral sent to [facility] inpatient rehab and if her insurance is not accepted to [facility]. Inpatient rehab screen ordered. CM will continue to follow and assist with discharge planning/needs. Economics Professor: Mary Martinez DCPIA - Discharge Planning Initial Assessment Updated by [id number]: Mary Martinez on 02/25/19 11:02 am * Is the patient Alert and Oriented? Yes * How many steps to enter\exit or inside your home? 2/0 * PCP Dr. Gautam * Pharmacy [facility] in [place] * Preadmission Environment Home with Family * ADLs Partial Dependent * Partial ADLs (Assistance needed) Ambulation * Equipment Bedside Commode Crutch Walker * List name and contact numbers for known caregivers / representatives who currently or will assist patient after discharge: Vladislav Boyd - spouse - [phone] Jossie Galarza - sister - [phone] * Verbal permission to speak to the caregivers and representatives has been obtained from the patient. Yes * Community resources currently utilized None * Additional services required to return to the preadmission environment? Yes * Can the patient safely return to the preadmission environment? No * Has this patient been hospitalized within the prior 30 days at any hospital? No External Providers External Provider: [facility] Next Contact Date: Service Request Date: Service Type: Resolution: Reviewer: Comments: Last DP export: 02/25/19 10:06 a Patient Name: RASHEED BOYD Page 51304 at 1238 All edits/amendments must be made on the electronic document DICTATION DATE: 02/25/191236 HYDRAULIC CONTROLS TECHNICIAN: ABDULLAHI 02/25/191236 RPT#: [id number] DC DATE: STATUS: ADM IN [facility] [address] [place] [address] END OF REPORT
--- NOTE | 2019-02-25 17:00 | NUR ---
PT ARRIVED TO CV07, REPORT RECIEVED. AAOX4, VITALS STABLE. INCISION SITE ON LEFT SIDE OF NECK, DRESSING CDI, INCISION ON LEFT LOWER ABDOMEN, DRESSING CDI. PERIPHERAL IV IN LEFT WRIST INFUSING, SEE IV FLOWSHEET.
--- NOTE | 2019-02-25 17:43 | NUR ---
ORDERS RECEIVED FROM DR GAUTAM TO RESTART MORPHINE RESEARCH PROGRAMMER PUMP
--- NOTE | 2019-02-25 19:30 | NUR ---
Received patient resting in bed with eyes closed, assessment completed per flowsheet. Patient AO x4, answers appropriately/follows instructions. S1/S2 noted NSR with 1st degree block on telemetry, rythmic and regular. Breathing is even/unlabored on room air with O2 sat 92%, lung sounds clear bilateral upper and mid with diminished lower. Lower abdomen incision dressing CDI, no bleeding/drainage noted. All pulses palpable wtih cap refill < 3 sec, skin warm/dry. CANOE MAKER in use for pain mgmt, c/o pelvic aching 2/10. Denies other needs at this time, see flowsheet for details. All VSS and will continue to monitor.
--- NOTE | 2019-02-25 20:41 | NUR ---
OT NOTE: PT COMPLETED BED MOB WITH MAX A SECONDARY TO PAIN. PT COMPLETED SIT TO STAND WITH MAX A/MOD A WHILE ADHERING TO WT BEARING PRECAUTIONS. THANK YOU, SACHIN SEQUEIRA
--- NOTE | 2019-02-25 21:10 | NUR ---
HS meds given without difficulty, patient resting in bed with eyes open. Family at bedside for visitation, discussed medications/discharge plans with all questions answered to satisfaction. Denies further needs at this time, all VSS and will continue to monitor.
--- NOTE | 2019-02-25 23:00 | NUR ---
Reassessment completed per flowsheet, no changes noted from previous assessment. S1/S2 noted NSR with 1st degree block on telemetry, rythmic and regular. Breathing is even/unlabored on room air with O2 sat 95%, lung sounds clear bilateral upper and mid with diminished lower. BARREL FINISHER in use for pain mgmt, denies further needs at this time. See flowsheet for details, all VSS and will continue to monitor.
[2019-02-26] VITALS (17 sets, daily range): BP systolic 87–106; BP diastolic 43–66; Ht 170.2 cm; Wt 91.4 kg
--- NOTE | 2019-02-26 01:00 | NUR ---
Patient sleeping in bed with eyes closed, no s/s of distress at this time. Patient awakens easily with slight disorientation, reorients quickly and returns to sleep. Denies needs at this time, all VSS and will continue to monitor.
--- NOTE | 2019-02-26 03:10 | NUR ---
Reassessment completed per flowsheet, no changes noted from previous assessment. S1/S2 noted NSR with 1st degree block on telemetry, rythmic and regular. Breathing is even/unlabored with O2 sat 97% on room air, lung sounds clear bilateral upper and mid with diminished lower. Lower abdomen incision dressing CDI, no bleeding/drainage noted. All pulses palpable with cap refill < 3 sec, skin warm/dry. MATERIAL REPROCESSING ASSOCIATE in use for pain mgmt, c/o pelvic aching 2/10. See flowsheet for details, all VSS and will continue to monitor.
--- NOTE | 2019-02-26 05:00 | NUR ---
Patient awake in bed with eyes open watching TV, Lab at bedside for AM lab draws. Assisted onto bedpan, 425 ml concentrated yellow urine noted. Denies further needs at this time, all VSS and will continue to monitor.
[2019-02-26 08:26] LABS: ALBUMIN 2.4 g/dL (3.4-5.0); ALKALINE PHOSPHATASE 77 U/L (46-116); CALC OSMOLALITY 262 mosm/kg (275-300); CALCIUM 7.6 mg/dL (8.5-10.1); CARBON DIOXIDE 19.5 mmol/L (21.0-32.0); CHLORIDE - SERUM 102 mmol/L (98-107); CREATININE - SERUM 0.6 mg/dL (0.6-1.3); GLUCOSE 106 mg/dL (74-106); POTASSIUM - SERUM 4.7 mmol/L (3.5-5.1); PROTEIN - SERUM 5.5 g/dL (6.4-8.2); SODIUM 133 mmol/L (136-145); UREA NITROGEN 5 mg/dL (7-18); eGFR NON AFRICAN AMERICAN > 90 mL/min (90-120)
[2019-02-26 08:28] LABS: ALT (SGPT) 136 U/L (10-68)
[2019-02-26 08:31] LABS: HEMATOCRIT 25.9 % (36.0-48.0); HEMOGLOBIN 8.4 g/dL (12-16); LYMPHOCYTES 9.5 % (15-50); MCH 25.5 pg (26.0-34.0); MCHC 32.4 g/dL (31.0-37.0); MCV 78.7 fL (80.0-100.0); MEAN PLATELET VOLUME 9.7 fL (7.4-10.4); NEUTROPHILS 63.4 % (40-80); PLATELET COUNT 130 10x3/uL (130-400); RBC 3.29 10x6/uL (4.00-5.40); RDW 15.8 % (11.5-14.5); WBC 4.2 10x3/uL (4.8-10.8)
--- NOTE | 2019-02-26 10:02 | NUR ---
IV R WRIST LEAKING. SITE DC'D. IV STARTED IN L FOREARM WITH 22G ON 1ST ATTEMPT.
--- NOTE | 2019-02-26 13:30 | NUR ---
DR. GAUTAM HERE. CONDTION UPDATE GIVEN. DICUSSED DISCHARGE PLANS AND PLANS FOR PAIN CONTROL. TRANSFER ORDERS REC'D.
--- NOTE | 2019-02-26 15:06 | MORECARE ---
CASE MANAGEMENT DISCHARGE SUMMARY PATIENT: RASHEED BOYD UNIT: [id number] ADM DATE: 02/22/19 AGE: 63 : 57 SEX: F ROOM/BED: [facility] AUTHOR: TREE,DOC PHYSICIAN: REFERRING PHYSICIAN: MARQUEZ GAUTAM MD DATE OF SERVICE: 02/26/19 Discharge Plan Patient Name: RASHEED BOYD Facility: [facility]:[place] : 1955 Planned Disposition: Inpatient Rehab Anticipated Discharge Date: Discharge Date: Expected LOS: Initial Reviewer: [email or web address] Initial Review Date: 02/25/2019 Generated: 02/26/19 4:06 pm Comments DCP- Discharge Planning Updated by [email or web address]: Deyanira Aldrich on 02/26/19 1:[address] CM called and spoke with admissions @ [facility] . They stated that they currently didn't have a bed available but could potentially have a bed by Friday. They stated that they will be sending a liaison over today to interview patient and finish screen. CM will continue to follow and assist as needed with discharge planning / needs. DCP- Discharge Planning Updated by [id number]: Mary Martinez on 02/25/19 11:[address] [facility] inpatient rehab does not accept patient's insurance. I informed the patient and sent referral to [facility]. CM will continue to follow and assist with discharge planning/needs. DCP- Discharge Planning Updated by [id number]: Mary Juan on 02/25/19 10:[address] Patient Name: RASHEED BOYD Admission Status: ER Accout number: [id number] Admission Date: 02-22-2019 : 1955 Admission Diagnosis:OTHER FRACTURE OF SACRUM, INIT ENCNTR FOR CLOSED FRACTU Attending: MARQUEZ GAUTAM Current LOS: 3 Anticipated DC Date: Planned Disposition: Inpatient Rehab Primary Insurance: BLUE CROSS TRUE BLUE PPO Discharge Planning Comments: CM met with patient to discuss discharge planning/needs, her sister from [place] is in the room and verbal consent received to discuss discharge planning/needs with sister present. She was independent prior to arrival. She lives with her in a one level home. I discussed the availability of inpatient rehab, SNF, home health and DME. I informed her that Dr. Gautam suggests rehab or skilled facility. She would like a referral sent to [facility] inpatient rehab and if her insurance is not accepted to [facility]. Inpatient rehab screen ordered. CM will continue to follow and assist with discharge planning/needs. Boiler Repair Supervisor: Mary Martinez DCPIA - Discharge Planning Initial Assessment Updated by [id number]: Mary Martinez on 02/25/19 11:02 am * Is the patient Alert and Oriented? Yes * How many steps to enter\exit or inside your home? 2/0 * PCP Dr. Gautam * Pharmacy [facility] in [place] * Preadmission Environment Home with Family * ADLs Partial Dependent * Partial ADLs (Assistance needed) Ambulation * Equipment Bedside Commode Crutch Walker * List name and contact numbers for known caregivers / representatives who currently or will assist patient after discharge: Vladislav Boyd - spouse - [phone] Jossie Galarza - sister - [phone] * Verbal permission to speak to the caregivers and representatives has been obtained from the patient. Yes * Community resources currently utilized None * Additional services required to return to the preadmission environment? Yes * Can the patient safely return to the preadmission environment? No * Has this patient been hospitalized within the prior 30 days at any hospital? No Last DP export: 02/25/19 11:38 a Patient Name: RASHEED BOYD Page 98292 at 1506 All edits/amendments must be made on the electronic document DICTATION DATE: 02/26/19 1506 OFFSET PROOF PRESS OPERATOR: ABDULLAHI 02/26/19 1506 RPT#: [id number] DC DATE: STATUS: ADM IN [facility] [address] [place] [address] END OF REPORT
--- NOTE | 2019-02-26 15:40 | NUR ---
TRANSFERRED TO ROOM 2217 VIA BED. TRANSFERRED TO NEW BED BY T[employer]. TOBACCO ACREAGE MEASURER BUTTON AND CALL LIGHT WITHIN REACH
--- NOTE | 2019-02-26 16:05 | NUR ---
RECIEVED FROM ICU. NO SIGNS OF DISTRESS. IV TO LEFT FORARM PATENT NO REDNESS OR TENDERNESS. ABDOMEN DISTENTED. COMPLAINS OF PAIN. MEDICATION IS GIVEN. DENIES ANY FUTHER NEED AT THIS TIME. CALL LIGHT IN REACH. BED LOW POSITION. FAMILY IS AT BEDSIDE. HAS BANDAGE TO RIGHT SIDE OF NECK CLEAN DRY AND INTACT.
[2019-02-27] VITALS (13 sets, daily range): BP systolic 69–113; BP diastolic 46–65
--- NOTE | 2019-02-27 03:44 | NUR ---
PT RESTING IN BED. ALERT AND ORIENTED. NO SIGNS OF DISTRESS. BREATHNG EVEN AND UNLABORED. IV SITE LT FA DRESSING CLEAN DRY AND INTACT. NO SIGNS OF INFECTION. BOWEL SOUNDS ACTIVE. DRESSING RT NECK CLEAN DRY AND INTACT. WILL CONTINUE PLAN OF CARE. CALL LIGHT IN REACH. BED LOWERED AND LOCKED. FAMILY AT BEDSIDE.
--- NOTE | 2019-02-27 04:39 | NUR ---
I have reviewed this patient and I concur with the Shift Assessment completed by the Licensed Practical Nurse today this shift.
[2019-02-27 06:58] LABS: APPEARANCE CLEAR (CLEAR); BILIRUBIN NEGATIVE (NEGATIVE); COLOR YELLOW (YELLOW); GLUCOSE 1000 mg/dL (NEGATIVE); KETONE NEGATIVE (NEGATIVE); NITRITE NEGATIVE (NEGATIVE); PROTEIN NEGATIVE (NEGATIVE); SPECIFIC GRAVITY 1.015 (1.005-1.020)
--- NOTE | 2019-02-27 18:45 | NUR ---
I have reviewed this patient and I concur with the Shift Assessment completed by the Licensed Practical Nurse today this shift.
--- NOTE | 2019-02-27 21:00 | NUR ---
BP READING 70/46, RECHECKED MANUAL 70/42. HR 81. O2 95%. TEMP 99.4. RESP 18. PT COOL TO TOUCH, LETHARGIC. WAKES UP TO VERBAL STIMULI. ANSWERS QUESTIONS APPROPRIATELY. ORIENTED X4. FAMILY AT BEDSIDE. CALLED DR GAUTAM, ORDERS FOR 500CC BOLUS, BOLUSED NS HANGING ALREADY. ORDERS TO KEEP NS @ 150 AND HOLD LASIX AND ALDACTONE. WILL CTM
--- NOTE | 2019-02-27 21:30 | NUR ---
500ML BOLUS COMPLETE. BP 78/45 AND RISING. PT HAS PERKED UP AND TALKING. WILL CTM
--- NOTE | 2019-02-27 22:00 | NUR ---
BP READING 69/43. CHECKED MANUAL 60/42. CALLED DR GAUTAM, ORDERS TO BOLUS 500ML. BOLUS 500ML FROM NS ALREADY HANGING. ORDERS TO MOVE TO ICU. CALLED REGISTERED NURSE PRACTITIONER FOR BED, AWAITING CALL BACK WITH ROOM NUMBER. NOTIFIED AND SISTER AT BEDSIDE. WILL CTM
--- NOTE | 2019-02-27 22:20 | NUR ---
RECIEVED ROOM NUMBER [id number]. SPOKE WITH PT FAMILY ON PLANS TO TRANSFER, VERBALIZED UNDERSTANDING. PT SECOND 500ML BOLUS COMPLETED WITH NO CHANGE IN BP. STARTED THIRD 500ML BOLUS PRIOR TO TRANSFER. PT BECAME CONFUSED AT THIS TIME AND MORE LETHARGIC. WOULD NOT OPEN EYES WHILE ANSWERING QUESTIONS. STATES NAME IS RASHEED DAS, STATES THAT IS HER MAIDEN NAME. WHEN ASKED WHERE SHE IS SHE STATED AT "[facility]" AND WHEN ASKED HER SHE SAID IN JANUARY. WHEN CORRECTED AND SAID JUNE, SHE SAID YES I KNOW. PT BEING PREPPED FOR TRANSFER AT THIS TIME
--- NOTE | 2019-02-27 22:25 | NUR ---
REPORT CALLED, PT TRANSFERED TO ROOM 2319
--- NOTE | 2019-02-27 22:30 | NUR ---
RECEIVED PATIENT TO ICU ROOM 2310 FROM [facility]. ACCOMPANIED BY [facility] STAFF. PATIENT DROWSY, ROUSES TO VERBAL/ STIMULI BUT DRIFTS OFF DURING CONVERSTION. ORIENTED X 4. SPEECH CLEAR. FOLLOWS COMMANDS. CONNECTED TO MONITORS WITH ALARMS SET. PATIENT CONTINUES HYPOTENSIVE. ASSESSMENT COMPLETED AT THIS TIME. CALL LIGHT WITHIN REACH OF PATIENT.
--- NOTE | 2019-02-27 22:45 | NUR ---
SPOKE WITH DR. GAUTAM. UPDATED ON PATIENT CONDITION WITH NEW ORDERS RECEIVED.
[2019-02-27 23:14] LABS: BASOPHILS 0.1 % (0-2); EOSINOPHILS 0 % (0-7); HEMATOCRIT 22.3 % (36.0-48.0); IMMATURE GRANULOCYTES 0.4 % (0-5); LYMPHOCYTES 6.7 % (15-50); MCH 24.7 pg (26.0-34.0); MCHC 31.8 g/dL (31.0-37.0); MCV 77.7 fL (80.0-100.0); MEAN PLATELET VOLUME 9.9 fL (7.4-10.4); MONOCYTES 18.2 % (2-11); NEUTROPHILS 74.6 % (40-80); PLATELET COUNT 122 10x3/uL (130-400); RBC 2.87 10x6/uL (4.00-5.40); RDW 17.1 % (11.5-14.5)
[2019-02-27 23:19] LABS: WBC 7.7 10x3/uL (4.8-10.8)
[2019-02-27 23:20] LABS: HEMOGLOBIN 7.1 g/dL (12-16)
[2019-02-27 23:37] LABS: ALBUMIN 2.9 g/dL (3.4-5.0); ANION GAP 19.6 mmol/L (8-16); BILIRUBIN - TOTAL 2.83 mg/dL (0.2-1.3); CALCIUM 7.8 mg/dL (8.5-10.1); CARBON DIOXIDE 16.5 mmol/L (21.0-32.0); POTASSIUM - SERUM 4.1 mmol/L (3.5-5.1); PROTEIN - SERUM 5.5 g/dL (6.4-8.2)
[2019-02-27 23:38] LABS: CREATININE - SERUM 1.1 mg/dL (0.6-1.3)
--- NOTE | 2019-02-27 23:45 | NUR ---
SPOKE WITH DR. GAUTAM. INFORMED OF PATIENT LAB RESULTS AND CRITICAL HGB. NEW ORDERS RECEIVED.
--- NOTE | 2019-02-27 23:46 | NUR ---
DR. VERNON PAGED AT THIS TIME
[2019-02-27 23:54] LABS: APTT 35.1 SECONDS (22.8-39.4); INR 1.89 (0.85-1.17); PROTIME 21.1 SECONDS (11.6-15.0)
[2019-02-28] VITALS (89 sets, daily range): BP systolic 82–126; BP diastolic 46–78
--- NOTE | 2019-02-28 | NUR ---
PATIENT'S FAMILY AT BEDSIDE, UPDATED ON PATIENT CONDITION
--- NOTE | 2019-02-28 01:00 | NUR ---
RESTING WITH EYES CLOSED. VSS
--- NOTE | 2019-02-28 03:00 | NUR ---
RESTING WITH EYES CLOSED, EASILY ROUSED. VSS
[2019-02-28 03:55] LABS: BASOPHILS 0.2 % (0-2); EOSINOPHILS 0.2 % (0-7); HEMATOCRIT 29.2 % (36.0-48.0); HEMOGLOBIN 9.5 g/dL (12-16); IMMATURE GRANULOCYTES 0.7 % (0-5); LYMPHOCYTES 4.4 % (15-50); MCHC 32.5 g/dL (31.0-37.0); MEAN PLATELET VOLUME 9.5 fL (7.4-10.4); MONOCYTES 19.1 % (2-11); NEUTROPHILS 75.4 % (40-80); PLATELET COUNT 119 10x3/uL (130-400); RBC 3.65 10x6/uL (4.00-5.40); RDW 17.2 % (11.5-14.5); WBC 9.2 10x3/uL (4.8-10.8)
[2019-02-28 03:58] LABS: ANION GAP 15.5 mmol/L (8-16); CALCIUM 7.7 mg/dL (8.5-10.1); CARBON DIOXIDE 17.2 mmol/L (21.0-32.0); POTASSIUM - SERUM 3.7 mmol/L (3.5-5.1)
--- NOTE | 2019-02-28 05:00 | NUR ---
RESTING WITH EYES CLOSED, ROUSES EASILY. VSS
--- NOTE | 2019-02-28 08:23 | NUR ---
BREAKFAST TRAY SERVED. FAMILY AT BS.
--- NOTE | 2019-02-28 11:06 | NUR ---
DR GAUTAM HERE.
--- NOTE | 2019-02-28 14:31 | NUR ---
DR VERNON AT AND SPOKE TO PT AND 2 FAMILY MEMBERS RE: POC.
--- NOTE | 2019-02-28 18:10 | NUR ---
DINNER TRAY PROVIDED AND PTS SISTER ASSISTED WITH MEAL TRAY.
--- NOTE | 2019-02-28 19:07 | NUR ---
BM NOTED. LINENS CHANGED. TOLERATED WELL. BEDSIDE SHIFT REPORT GIVEN BY DEPARTING RN. PT LAYING IN BED. CONFUSED ON TIME AND PLACE. PERRLA. JAUNDICED. MOANS OUT IN PAIN WITH MOVEMENT OF HIPS. PILLOW TO SQUEEZE PROVIDED FOR TURNING. LEFT FA PIV INFUSING MD ORDERED MEDS. BRUISES NOTED T/O. ASSESSMENT COMPLETE. SEE FS FOR DETAILS. SAFETY MEASURES IN PLACE. CBIR.
--- NOTE | 2019-02-28 20:00 | NUR ---
FAMILY AT BEDSIDE. ALL QUESTIONS ANSWERED.
--- NOTE | 2019-02-28 20:50 | NUR ---
HS MEDS GIVEN. SWALLOWED PO MEDS WITHOUT DIFFICULTY.
--- NOTE | 2019-02-28 22:17 | NUR ---
BM NOTED. CHG BATH GIVEN. LINENS CHANGED. ORAL CARE GIVEN. ALEJANDRA CARE GIVEN. EKG PADS CHANGED. TOLERATED WELL. WARM BLANKETS PROVIDED.
--- NOTE | 2019-02-28 23:21 | NUR ---
REASSESSMENT COMPLETE. NO NEW CHANGES IN PT CONDITION. VS UNCHANGED. SAFETY MEASURES IN PLACE. CBIR
[2019-03-01] VITALS (47 sets, daily range): BP systolic 94–149; BP diastolic 55–95
--- NOTE | 2019-03-01 02:33 | NUR ---
ALERTED NURSE FOR BEDPAN. ONE BM NOTED. TOLERATED WELL.
--- NOTE | 2019-03-01 02:50 | NUR ---
REASSESSMENT COMPLETE. NO NEW CHANGES NOTED IN PT CONDITION. VS REMAIN UNCHANGED. SAFETY MEASURES IN PLACE. CBIR.
--- NOTE | 2019-03-01 03:49 | NUR ---
BM NOTED IN BED. LINENS CHANGED. TOLERATED WELL.
[2019-03-01 04:51] LABS: BASOPHILS 0.5 % (0-2); EOSINOPHILS 0 % (0-7); HEMATOCRIT 29.6 % (36.0-48.0); HEMOGLOBIN 10.1 g/dL (12-16); IMMATURE GRANULOCYTES 0.2 % (0-5); LYMPHOCYTES 6.5 % (15-50); MCH 26.1 pg (26.0-34.0); MCHC 34.1 g/dL (31.0-37.0); MEAN PLATELET VOLUME 10.2 fL (7.4-10.4); MONOCYTES 19.8 % (2-11); RBC 3.87 10x6/uL (4.00-5.40); RDW 17.2 % (11.5-14.5)
[2019-03-01 05:01] LABS: MCV 76.5 fL (80.0-100.0); PLATELET COUNT 146 10x3/uL (130-400)
[2019-03-01 05:03] LABS: INR 1.91 (0.85-1.17); PROTIME 21.2 SECONDS (11.6-15.0)
[2019-03-01 05:09] LABS: ALBUMIN 2.7 g/dL (3.4-5.0); ALKALINE PHOSPHATASE 141 U/L (46-116); BILIRUBIN - TOTAL 5.92 mg/dL (0.2-1.3); CALC OSMOLALITY 263 mosm/kg (275-300); CALCIUM 8.2 mg/dL (8.5-10.1); CARBON DIOXIDE 17.4 mmol/L (21.0-32.0); CHLORIDE - SERUM 104 mmol/L (98-107); GLUCOSE 128 mg/dL (74-106); PROTEIN - SERUM 5.2 g/dL (6.4-8.2); SODIUM 131 mmol/L (136-145); UREA NITROGEN 11 mg/dL (7-18)
[2019-03-01 05:18] LABS: CREATININE - SERUM 0.7 mg/dL (0.6-1.3)
[2019-03-01 05:19] LABS: ALT (SGPT) 222 U/L (10-68); POTASSIUM - SERUM 3.1 mmol/L (3.5-5.1); eGFR NON AFRICAN AMERICAN 90 mL/min (90-120)
--- NOTE | 2019-03-01 07:15 | NUR ---
REPORT RECEIVED. PT RESTING QUIETLY IN BED. VSS. PT IS JAUNDICED. DOES HAVE ASCITES. SHE HAS A RANGEL CATHETER. SHE HAS 3 IVS IN HER FOREARMS. PT HAS A PELVIC FRACTURE. HEAD TO TOE ASSESSMENT COMPLETE. WILL CONTINUE TO MONITOR.
--- NOTE | 2019-03-01 08:42 | NUR ---
PT DID NOT EAT BREAKFAST AND IS CURRENTLY IN CT AT THIS TIME. WILL ASSIST WITH EATING WHEN PT RETURNS.
--- NOTE | 2019-03-01 09:46 | NUR ---
PT IS TO CONTINUE BEING NPO D/T PT HAVING TO GO BACK TO IR TO DRAIN FLUID FROM HER ABDOMEN. PT AND PT FAMILY AWARE. PT ATTEMPTED TO HAVE BM ON FRACTURE MERIDA. NO BM AT THIS TIME. WILL CONTINUE TO MONITOR.
--- NOTE | 2019-03-01 10:46 | NUR ---
NUTRITION F/U PT CURRENTLY NPO FOR PROCEDURE. WILL PROVIDE DIET WHEN RESUMED, MONITOR PO INTAKE. RD FOLLOWING
--- NOTE | 2019-03-01 11:30 | NUR ---
PT DIDN'T NEED COVERAGE FOR BLOOD SUGAR. CONTINUES TO BE NPO. WANTS TO ATTEMPT TO USE BEDPAN AGAIN. VSS. REASSESSMENT DONE. NO CHANGES AT THIS TIME. WILL CONTINUE TO MONITOR.
--- NOTE | 2019-03-01 13:13 | NUR ---
IR NURSE, RAYA, HERE TO APPRENTICE COOK PT FOR THORACENTESIS. CONSENT HAS BEEN FILLED OUT.
--- NOTE | 2019-03-01 14:10 | NUR ---
PT STILL IN IR.
--- NOTE | 2019-03-01 14:30 | NUR ---
PT BACK FROM IR. GOT 5700 ML OFF OF PT'S ABD. NO SEDATION NEEDED. 2 DOSES OF ALBUMIN TO BE GIVEN.
--- NOTE | 2019-03-01 15:13 | NUR ---
IV IN RIGHT FOREARM INFILTRATED. IV TAKEN OUT. IV IN LEFT FOREARM PATENT. 2ND DOSE OF ALBUMIN HANGING. SISTER AT BEDSIDE. PT ON BEDPAN TRYING TO HAVE BM. PT IS ALERT AND ORIENTED TO SELF AND SITUATION. VSS. NO NEEDS AT THIS TIME. WILL CONTINUE TO MONITOR.
--- NOTE | 2019-03-01 17:30 | NUR ---
PT HAS US ON ABD. NOW PT IS ABLE TO EAT/DRINK. HAS SOME ASSISTANCE FROM HER SISTER. ON BEDPAN TO ATTEMPT A BM. NO OTHER COMPLAINTS OR NEEDS AT THIS TIME. WILL CONTINUE TO MONITOR.
--- NOTE | 2019-03-01 17:37 | MORECARE ---
CASE MANAGEMENT DISCHARGE SUMMARY PATIENT: RASHEED BOYD UNIT: [id number] ADM DATE: 02/22/19 AGE: 63 : 57 SEX: F ROOM/BED: D.2310 AUTHOR: BENITA LEAVITT PHYSICIAN: REFERRING PHYSICIAN: MARQUEZ GAUTAM MD DATE OF SERVICE: 03/01/19 Discharge Plan Patient Name: RASHEED BOYD Facility: [facility]:[place] : 1955 Planned Disposition: Inpatient Rehab Anticipated Discharge Date: Discharge Date: Expected LOS: Initial Reviewer: [email or web address] Initial Review Date: 02/25/2019 Generated: 03/01/19 6:37 pm Comments DCP- Discharge Planning Updated by [id number]: Deyanira Aldrich on 03/01/19 4:[address] [facility] called this am to find out status of patient. They plan to evaluate patient once she is more stable. CM will continue to follow and assist as needed with discharge planning / needs. DCP- Discharge Planning Updated by [email or web address]: Deyanira Aldrich on 02/26/19 1:[address] CM called and spoke with admissions @ [facility] . They stated that they currently didn't have a bed available but could potentially have a bed by Friday. They stated that they will be sending a liaison over today to interview patient and finish screen. CM will continue to follow and assist as needed with discharge planning / needs. DCP- Discharge Planning Updated by [id number]: Mary Martinez on 02/25/19 11:[address] [facility] inpatient rehab does not accept patient's insurance. I informed the patient and [facility]. CM will continue to follow and assist with discharge planning/needs. DCP- Discharge Planning Updated by [id number]: Mary Martinez on 02/25/19 10:[address] Patient Name: RASHEED BOYD Admission Status: ER Accout number: [id number] Admission Date: 02-22-2019 : 1955 Admission Diagnosis:OTHER FRACTURE OF SACRUM, INIT ENCNTR FOR CLOSED FRACTU Attending: MARQUEZ GAUTAM Current LOS: 3 Anticipated DC Date: Planned Disposition: Inpatient Rehab Primary Insurance: BLUE CROSS TRUE BLUE PPO Discharge Planning Comments: CM met with patient to discuss discharge planning/needs, her sister from [place] is in the room and verbal consent received to discuss discharge planning/needs with sister present. She was independent prior to arrival. She lives with her in a one level home. I discussed the availability of inpatient rehab, SNF, home health and DME. I informed her that Dr. Gautam suggests rehab or skilled facility. She would like a referral sent to [facility] inpatient rehab and if her insurance is not accepted to [facility]. Inpatient rehab screen ordered. CM will continue to follow and assist with discharge planning/needs. Contact Centre Supervisor: Mary Martinez DCPIA - Discharge Planning Initial Assessment Updated by [email or web address]: Mary Martinez on 02/25/19 11:02 am * Is the patient Alert and Oriented? Yes * How many steps to enter\exit or inside your home? 2/0 * PCP Dr. Gautam * Pharmacy [facility] in [place] * Preadmission Environment Home with Family * ADLs Partial Dependent * Partial ADLs (Assistance needed) Ambulation * Equipment Bedside Commode Crutch Walker * List name and contact numbers for known caregivers / representatives who currently or will assist patient after discharge: Vladislav Boyd - spouse - [phone] Jossie Galarza - sister - [phone] * Verbal permission to speak to the caregivers and representatives has been obtained from the patient. Yes * Community resources currently utilized None * Additional services required to return to the preadmission environment? Yes * Can the patient safely return to the preadmission environment? No * Has this patient been hospitalized within the prior 30 days at any hospital? No Last DP export: 02/26/19 2:06 p Patient Name: RASHEED BOYD Page 34236 at 1737 All edits/amendments must be made on the electronic document DICTATION DATE: 03/01/191736 PROFESSOR OF LITERATURE: ABDULLAHI 03/01/191736 RPT#: [id number] DC DATE: STATUS: ADM IN [facility] [address] [place] [address] END OF REPORT
--- NOTE | 2019-03-01 19:09 | NUR ---
BEDSIDE SHIFT REPORT GIVEN BY DEPARTING RN. PT LAYING IN BED WITH EYES CLOSED. DENIES ANY NEEDS AT THIS TIME. CONFUSED. PERRLA. VSS. LEFT FA PIV X2 SALINE LOCKED. F/C DRAINING TO GRAVITY. ASSESSMENT COMPLETE. SEE FLOWSHEET FOR DETAILS. SAFETY MEASURES IN PLACE. CBIR.
--- NOTE | 2019-03-01 20:00 | NUR ---
FAMILY AT BEDSIDE. AND SISTER. UPDATE GIVEN. ALL QUESTIONS ANSWERED.
--- NOTE | 2019-03-01 22:01 | NUR ---
DR. ARSHAD PHONED REGARDING HR AND RHYTHM. LABS REVIEWED. ELECTROLYTE PROTOCOL ORDERED. LABS ORDERED. ORDERS RECEIVED, VERIFIED, AND READ BACK.
[2019-03-01 22:48] LABS: MAGNESIUM - SERUM 1.4 mg/dL (1.8-2.4); POTASSIUM - SERUM 3.1 mmol/L (3.5-5.1)
--- NOTE | 2019-03-01 23:09 | NUR ---
REASSESSMENT COMPLETE. NO NEW CHANGES IN PT CONDITION. HR REMAINS A-FIB 110'S. ALL OTHER VS STABLE. DENIES ANY NEEDS AT THIS TIME. FRESH ICE WATER PROVIDED.
[2019-03-02] VITALS (16 sets, daily range): BP systolic 104–122; BP diastolic 58–80
--- NOTE | 2019-03-02 00:23 | NUR ---
USED CALL LIGHT TO ALERT NURSE OF NEED FOR BEDPAN. NO BM NOTED AT THIS TIME, ONLY FLATUS.
--- NOTE | 2019-03-02 02:31 | NUR ---
LARGE BM NOTED. TOLERATED WELL.
--- NOTE | 2019-03-02 03:20 | NUR ---
CHG BATH GIVEN. HAIR SHAMPOOED AND BRUSHED. LINENS CHANGED. EKG PADS REPLACED. ORAL CARE, ALEJANDRA CARE, AND RANGEL CARE PROVIDED. TOLERATED OK. PT MORE AND MORE CONFUSED. PARANOID THINKING THE POLICE ARE OUT TO TAKE HER AWAY. NOT LISTENING TO REASON. REASSESSMENT COMPLETE. SEE FLOWSHEET FOR DETAILS.
[2019-03-02 04:24] LABS: INR 1.77 (0.85-1.17)
[2019-03-02 04:31] LABS: CHLORIDE - SERUM 106 mmol/L (98-107); POTASSIUM - SERUM 3.1 mmol/L (3.5-5.1); SODIUM 139 mmol/L (136-145)
[2019-03-02 04:44] LABS: BASOPHILS 0.4 % (0-2); EOSINOPHILS 1.3 % (0-7); HEMOGLOBIN 10.4 g/dL (12-16); IMMATURE GRANULOCYTES 0.2 % (0-5); LYMPHOCYTES 8.4 % (15-50); MCH 25.8 pg (26.0-34.0); MCHC 33.5 g/dL (31.0-37.0); MCV 76.9 fL (80.0-100.0); MEAN PLATELET VOLUME 10.4 fL (7.4-10.4); MONOCYTES 18.8 % (2-11); NEUTROPHILS 70.9 % (40-80); RBC 4.03 10x6/uL (4.00-5.40); RDW 17.8 % (11.5-14.5); WBC 5.6 10x3/uL (4.8-10.8)
[2019-03-02 04:46] LABS: PLATELET COUNT 105 10x3/uL (130-400)
[2019-03-02 04:58] LABS: ALBUMIN 3.2 g/dL (3.4-5.0); ALKALINE PHOSPHATASE 147 U/L (46-116); ALT (SGPT) 125 U/L (10-68); CALC OSMOLALITY 277 mosm/kg (275-300); CALCIUM 8.6 mg/dL (8.5-10.1); CARBON DIOXIDE 19.6 mmol/L (21.0-32.0); CREATININE - SERUM 0.6 mg/dL (0.6-1.3); GLUCOSE 133 mg/dL (74-106); PROTEIN - SERUM 5.3 g/dL (6.4-8.2); UREA NITROGEN 7 mg/dL (7-18); eGFR NON AFRICAN AMERICAN > 90 mL/min (90-120)
--- NOTE | 2019-03-02 07:15 | NUR ---
REPORT RECEIVED. PT CONFUSED. CAN'T REMEMBER DETAILS OF YESTERDAY OR EARLIER DURING THE NIGHT/MORNING. PT IS CURRENTLY CLEAN AND REPOSITIONED WITH CUSTODIAL AIDE NURSE. REORIENTED PT. IV TO LEFT FOREARM. RANGEL CATHETER IN PLACE. PT IS SLIGHTLY JAUNDICED. NOT YELLOW YESTERDAY. WILL CONTINUE TO MONITOR.
--- NOTE | 2019-03-02 08:27 | NUR ---
VERIFIED WITH MEDICAL IMAGING THAT CONTRAST WAS USED YESTERDAY AND THAT PT SHOULDN'T BE RECEIVING METFORMIN FOR 48 MORE HRS.
--- NOTE | 2019-03-02 09:10 | NUR ---
MEDICATIONS GIVEN. DR MURPHY, DR GAUTAM, AND UBALDO WITH IR ALL ROUNDED ON PT. SISTER AND MOTHER AT BEDSIDE (WITH PT'S ON PHONE). THEY TALKED ABOUT TRANSFERRING PT TO ANOTHER FACILITY SINCE THE TIPS PROCEDURE ISN'T HELPING HER LIVER. PT TO GET ECHO TODAY TO SEE ABOUT HEART FUNCTION AND RELATION TO STRAIN FROM [facility]. WILL CONTINUE TO MONITOR. ALBUMIN CURRENTLY INFUSING. FOOD ORDERED FROM [facility] THAT PT STATED SHE WOULD TRY TO EAT.
--- NOTE | 2019-03-02 09:58 | NUR ---
PT DRANK ALL OF HER CHOCOLATE ENSURE AND DRANK WHOLE CARTON OF MILK; ATE HALF OF HER CHEERIOS. FLUSHED IV AFTER ALBUMIN FINISHED. WAITING ON PHARMACY TO MIX UP LR AND MAG TO HANG ON PT. VSS. WILL CONTINUE TO MONITOR.
--- NOTE | 2019-03-02 11:15 | NUR ---
IV FLUID LR WITH MAG INITIATED. INFUSING INTO LEFT FOREARM.
--- NOTE | 2019-03-02 12:15 | NUR ---
PT HAD INCONTINENT EPISODE OF LIQUID BOWEL MOVEMENT. PT CLEANED AND REPOSITIONED. WILL CONTINUE TO MONITOR.
--- NOTE | 2019-03-02 15:42 | NUR ---
REPORT CALLED TO [facility], ON MED SURG. PT IS GOING TO [facility].
--- NOTE | 2019-03-02 16:20 | NUR ---
PT TRANSFERRED FROM ICU VIA BED. FAMILY IS AT BEDSIDE. PT DENIES PRESENCE OF PAIN. ABDOMEN IS DISTENDED. PT DENIES TENDERNESS UPON PALPATION. PT DENIES PRESENCE OF N/V. PT IS PLESENTLY CONFUSED TO PLACE AND TIME. PT REORIENTED TO PLACE AND TIME. BRANDI LUNA IS ON AND WORKING. BED IS IN THE LOWEST POSITION. CALL LIGHT AND BEDSIDE TABLE ARE WITHIN REACH. SIDE RAILS X 2. WILL CONT TO MONITOR. PT AND FAMILY DENY FURTHER NEEDS. WILL CONT TO MONITOR.
--- NOTE | 2019-03-02 23:04 | NUR ---
RECEIVED PT. PT UP IN BED AT BEDSIDE. A&O X2. PT VOICES NO C/O OR CONCERNS AT THIS TIME. DENIES PAIN. NO S/S OF DISTRESS NOTED. WILL CPOC.
[2019-03-03 01:00] VITALS: BP 110/55
--- NOTE | 2019-03-03 03:00 | NUR ---
PT CONFUSED ASKING FOR SYNTHROID. REORIENTED X2. PT AGGITATED. WILL CPOC.
[2019-03-03 06:35] VITALS: BP 106/64
[2019-03-03 06:46] LABS: INR 1.68 (0.85-1.17); PROTIME 19.2 SECONDS (11.6-15.0)
[2019-03-03 06:47] LABS: HEMATOCRIT 29.6 % (36.0-48.0); HEMOGLOBIN 9.9 g/dL (12-16); MCH 25.8 pg (26.0-34.0); MCHC 33.4 g/dL (31.0-37.0); MCV 77.1 fL (80.0-100.0); MEAN PLATELET VOLUME 10.7 fL (7.4-10.4); PLATELET COUNT 91 10x3/uL (130-400); RBC 3.84 10x6/uL (4.00-5.40); RDW 18.5 % (11.5-14.5); WBC 5.3 10x3/uL (4.8-10.8)
[2019-03-03 07:08] LABS: ALKALINE PHOSPHATASE 156 U/L (46-116); CALC OSMOLALITY 276 mosm/kg (275-300); CALCIUM 8.3 mg/dL (8.5-10.1); CARBON DIOXIDE 19.5 mmol/L (21.0-32.0); CHLORIDE - SERUM 106 mmol/L (98-107); GLUCOSE 119 mg/dL (74-106); SODIUM 139 mmol/L (136-145); UREA NITROGEN 8 mg/dL (7-18)
[2019-03-03 07:10] LABS: ALT (SGPT) 84 U/L (10-68); CREATININE - SERUM 0.4 mg/dL (0.6-1.3); POTASSIUM - SERUM 3.8 mmol/L (3.5-5.1); eGFR NON AFRICAN AMERICAN > 90 mL/min (90-120)
[2019-03-03 08:51] LABS: ANISOCYTOSIS 1+; EOSINOPHILS 3 % (0-7); LYMPHOCYTES 15 % (15-50); MONOCYTES 14 % (2-11); NEUTROPHILS 67 % (40-80)
[2019-03-03 08:52] LABS: CRENATED CELLS OCC; PLATELET ESTIMATE DECREASED
[2019-03-03 08:55] VITALS: BP 109/67
--- NOTE | 2019-03-03 12:28 | MORECARE ---
CASE MANAGEMENT DISCHARGE SUMMARY PATIENT: RASHEED BOYD UNIT: [id number] ADM DATE: 02/22/19 AGE: 63 : 57 SEX: F ROOM/BED: D.2220 AUTHOR: BENITA LEAVITT PHYSICIAN: REFERRING PHYSICIAN: MARQUEZ GAUTAM MD DATE OF SERVICE: 03/03/19 Discharge Plan Patient Name: RASHEED BOYD Facility: [facility]:[place] : 1955 Planned Disposition: Inpatient Rehab Anticipated Discharge Date: Discharge Date: Expected LOS: Initial Reviewer: [email or web address] Initial Review Date: 02/25/2019 Generated: 03/03/19 1:28 pm Comments DCP- Discharge Planning Updated by [id number]: Deyanira lAdrich on 03/01/19 4:[address] [facility] ([facility]) called this am to find out status of patient. They plan to evaluate patient once she is more stable. CM will continue to follow and assist as needed with discharge planning / needs. DCP- Discharge Planning Updated by [email or web address]: Deyanira Aldrich on 02/26/19 1:[address] CM called and spoke with admissions @ [facility] . They stated that they currently didn't have a bed available but could potentially have a bed by Friday. They stated that they will be sending a liaison over today to interview patient and finish screen. CM will continue to follow and assist as needed with discharge planning / needs. DCP- Discharge Planning Updated by [id number]: Mary Martinez on 02/25/19 11:[address] [facility] [place] inpatient rehab does not accept patient's insurance. I informed the patient and sent referral to [facility]. CM will continue to follow and assist with discharge planning/needs. DCP- Discharge Planning Updated by [id number]: Mary Martinez on 02/25/19 10:[address] Patient Name: RASHEED BOYD Admission Status: ER Accout number: [id number] Admission Date: 02-22-2019 : 1955 Admission Diagnosis:OTHER FRACTURE OF SACRUM, INIT ENCNTR FOR CLOSED FRACTU Attending: MARQUEZ GAUTAM Current LOS: 3 Anticipated DC Date: Planned Disposition: Inpatient Rehab Primary Insurance: BLUE CROSS TRUE BLUE PPO Discharge Planning Comments: CM met with patient to discuss discharge planning/needs, her sister from [place] is in the room and verbal consent received to discuss discharge planning/needs with sister present. She was independent prior to arrival. She lives with her in a one level home. I discussed the availability of inpatient rehab, SNF, home health and DME. I informed her that Dr. Gautam suggests rehab or skilled facility. She would like a referral sent to [facility] [place] inpatient rehab and if her insurance is not accepted to [facility]. Inpatient rehab screen ordered. CM will continue to follow and assist with discharge planning/needs. Broadcast Engineer: Mary Martinez DCPIA - Discharge Planning Initial Assessment Updated by [id number]: Mary Martinez on 02/25/19 11:02 am * Is the patient Alert and Oriented? Yes * How many steps to enter\exit or inside your home? 2/0 * PCP Dr. Gautam * Pharmacy [facility] in [place] * Preadmission Environment Home with Family * ADLs Partial Dependent * Partial ADLs (Assistance needed) Ambulation * Equipment Bedside Commode Crutch Walker * List name and contact numbers for known caregivers / representatives who currently or will assist patient after discharge: Vladislav Boyd - spouse - [phone] Jossie Galarza - sister - [phone] * Verbal permission to speak to the caregivers and representatives has been obtained from the patient. Yes * Community resources currently utilized None * Additional services required to return to the preadmission environment? Yes * Can the patient safely return to the preadmission environment? No * Has this patient been hospitalized within the prior 30 days at any hospital? No Last DP export: 03/01/19 4:37 p Patient Name: RASHEED BOYD Page 42817 at 1228 All edits/amendments must be made on the electronic document DICTATION DATE: 03/03/191227 BILINGUAL BRANCH MANAGER: ABDULLAHI 03/03/191227 RPT#: [id number] DC DATE: STATUS: ADM IN [facility] [address] [place] [address] END OF REPORT
[2019-03-03 13:57] VITALS: BP 111/66
--- NOTE | 2019-03-03 14:41 | NUR ---
OT NOTE: PT REMAINS CONFUSED AND PARANOID. RESISTANT TO ANY MOVEMENT AND CONTINUES TO BELIEVE THAT THE DOCTOR HAS TOLD HER NOT TO MOVE. EASILY AGITATED, BUT ALSO EASILY REDIRECTED. MAX ASSIST FOR BED MOB; PT INCONT OF BOWEL AND WAS CLEANED WITH CLEAN PADS PLACED UNDER HER. SUPINE TO SIT WITH MAX ASSIST; ATTEMPTED TO STAND WITH MAX ASSIST X 2..PT VERY UNSTABLE AND FEARFUL OF STANDING. MARÍA RACHEL, OTR/L
[2019-03-03 16:24] VITALS: BP 102/65
--- NOTE | 2019-03-03 17:00 | NUR ---
PATIENT REFUSING MEDS AT THIS TIME. STATED SHE ISNT TAKING ANYMORE UNTIL SHE SEES DR. GAUTAM AGAIN BECAUSE HE SAID HE WAS COMING BACK TO SEE HER.
--- NOTE | 2019-03-03 18:42 | NUR ---
PATIENT IN BED WITH IV X 2 INTACT. NO COMPLAINTS. CALL LIGHT WITHIN REACH.
[2019-03-03 22:05] VITALS: BP 121/71
--- NOTE | 2019-03-03 22:23 | NUR ---
AWAKE,ALERT,ORIENTED TO SELF. VERY ANXIOUS. ATIVAN GIVEN FOR ANXIETY. FSBS 182. REFUSES INSULIN AT THIS TIME. REFUSES CHRONULAC.. SL TO LFA WIHTOUT REDNESS OR EDEMA NOTED. CL IN REACH. FALL PRECATIONS IN PLACE.
[2019-03-04 01:22] VITALS: BP 106/55
--- NOTE | 2019-03-04 03:30 | NUR ---
I have reviewed this patient and I concur with the Shift Assessment completed by the Licensed Practical Nurse today this shift.
[2019-03-04 05:22] LABS: BASOPHILS 0.4 % (0-2); EOSINOPHILS 4.3 % (0-7); HEMATOCRIT 31.7 % (36.0-48.0); HEMOGLOBIN 10.4 g/dL (12-16); IMMATURE GRANULOCYTES 0.4 % (0-5); LYMPHOCYTES 10.9 % (15-50); MCH 25.9 pg (26.0-34.0); MCHC 32.8 g/dL (31.0-37.0); MCV 78.9 fL (80.0-100.0); MONOCYTES 20.1 % (2-11); NEUTROPHILS 63.9 % (40-80); PLATELET COUNT 109 10x3/uL (130-400); RBC 4.02 10x6/uL (4.00-5.40); RDW 19.8 % (11.5-14.5); WBC 4.9 10x3/uL (4.8-10.8)
[2019-03-04 05:39] LABS: ALBUMIN 3.2 g/dL (3.4-5.0); ALKALINE PHOSPHATASE 205 U/L (46-116); BILIRUBIN - TOTAL 6.64 mg/dL (0.2-1.3); CALC OSMOLALITY 279 mosm/kg (275-300); CARBON DIOXIDE 20.5 mmol/L (21.0-32.0); CHLORIDE - SERUM 106 mmol/L (98-107); GLUCOSE 133 mg/dL (74-106); POTASSIUM - SERUM 3.3 mmol/L (3.5-5.1); PROTEIN - SERUM 5.5 g/dL (6.4-8.2); SODIUM 140 mmol/L (136-145); UREA NITROGEN 9 mg/dL (7-18)
[2019-03-04 05:49] VITALS: BP 102/51
[2019-03-04 05:55] LABS: ALT (SGPT) 62 U/L (10-68); CREATININE - SERUM 0.6 mg/dL (0.6-1.3); eGFR NON AFRICAN AMERICAN > 90 mL/min (90-120)
[2019-03-04 07:00] LABS: INR 1.67 (0.85-1.17); PROTIME 19.1 SECONDS (11.6-15.0)
--- NOTE | 2019-03-04 08:50 | NUR ---
PATIENT IN BED WITH IV INTACT. NO COMPLAINTS OR SIGNS OF DISTRESS. CALL LIGHT WITHIN REACH.
[2019-03-04 08:59] VITALS: BP 114/60
[2019-03-04 13:25] VITALS: BP 105/63
--- NOTE | 2019-03-04 15:00 | NUR ---
Nutrition follow-up: Diet: Low sodium PO intake 25-50% average of meals Labs reviewed +BM Pt with some confusion per nursing Will continue to provide food choices and encourage increased po intake RDN following.
--- NOTE | 2019-03-04 15:22 | NUR ---
OT NOTE: PT DOING BETTER TODAY. REMAINS CONFUSED BUT BETTER THAN PREVIOUS DAYS. PT WITH DIFFICULTY FEEDING DUE TO INCREASED DISTRACTABILITY. FREQ VERBAL CUES TO STAY FOCUSED ON TASK. ABLE TO WASH FACE, HANDS, AND UPPER BODY WITH SET UP AND VERBAL CUES; MAX ASSIST WITH LE AND PERINEAL BATHING. MIN ASSIST TO JACQUIE GOWN; MAX ASSIST TO JACQUIE SOCKS. BRUSHING HAIR WITH SET UP. ROLLING SIDE TO SIDE WITH MOD/MAX ASSIST. LESS PAIN NOTED WITH MOVEMENT. MARÍA RACHEL, OTR/L
[2019-03-04 17:45] VITALS: BP 123/74
--- NOTE | 2019-03-04 18:45 | NUR ---
PATIENT IN BED WITH NO COMPLAINTS OR SIGNS OF DISTRESS. FAMILY AT BEDSIDE. CALL LIGHT WITHIN REACH.
--- NOTE | 2019-03-04 20:07 | NUR ---
OT NOTE: PT MILDLY CONFUSED. PT COMPLETED HYGIENE TASKS WITH MAX A. PT COMPLETED BED MOB TASKS WITH MOD A USING RAILING. PT COMPLETED SUPINE TO SIT WITH MOD A. THANK YOU, SACHIN SEQUEIRA
--- NOTE | 2019-03-04 20:30 | NUR ---
LYING QUEITLY WITH NO COMPALITNS VOICED. RESP UNLABORED. NO DISTRESS NOTED. SL X 2 TO LFA INTACT WITHOUT REDENSSS OR EDEMA NOTED. RANGEL PATENT AND DRAINING CL YELLOW URINE. SR UP X 3. FALL PRECAUTIONS IN PLACE. FAMILY AT BEDSIDE.
[2019-03-04 21:10] VITALS: BP 119/68
[2019-03-05 00:37] VITALS: BP 109/70
--- NOTE | 2019-03-05 04:00 | NUR ---
I have reviewed this patient and I concur with the Shift Assessment completed by the Licensed Practical Nurse today this shift.
[2019-03-05 05:49] VITALS: BP 121/67
[2019-03-05 06:50] LABS: ALBUMIN 3.1 g/dL (3.4-5.0); ALKALINE PHOSPHATASE 194 U/L (46-116); BILIRUBIN - TOTAL 5.92 mg/dL (0.2-1.3); CALC OSMOLALITY 279 mosm/kg (275-300); CALCIUM 9.1 mg/dL (8.5-10.1); CARBON DIOXIDE 22.1 mmol/L (21.0-32.0); CHLORIDE - SERUM 107 mmol/L (98-107); CREATININE - SERUM 0.6 mg/dL (0.6-1.3); GLUCOSE 137 mg/dL (74-106); POTASSIUM - SERUM 3.2 mmol/L (3.5-5.1); PROTEIN - SERUM 5.3 g/dL (6.4-8.2); SODIUM 140 mmol/L (136-145); UREA NITROGEN 10 mg/dL (7-18); eGFR NON AFRICAN AMERICAN > 90 mL/min (90-120)
[2019-03-05 06:52] LABS: ALT (SGPT) 46 U/L (10-68)
[2019-03-05 06:58] LABS: INR 1.69 (0.85-1.17); PROTIME 19.3 SECONDS (11.6-15.0)
[2019-03-05 07:42] LABS: HEMOGLOBIN 9.5 g/dL (12-16); LYMPHOCYTES 11.2 % (15-50); MCH 26.8 pg (26.0-34.0); MCHC 32.8 g/dL (31.0-37.0); MCV 81.9 fL (80.0-100.0); NEUTROPHILS 63.9 % (40-80); PLATELET COUNT 117 10x3/uL (130-400); RBC 3.54 10x6/uL (4.00-5.40); WBC 4.4 10x3/uL (4.8-10.8)
[2019-03-05 08:40] VITALS: BP 99/64
--- NOTE | 2019-03-05 11:46 | NUR ---
OT NOTE: PT SLOWLY IMPROVING WITH COGNITION. CONTINUES TO EXHIBIT DIFFICULTY WITH PROCESSING; SLOW TO RESPOND TO COMMANDS; REQUIRES CUES FOR ORIENTATION; EASILY DISTRACTED BUT ALSO EASY TO BE REDIRECTED. SIMPLE GROOMING TASKS WITH MIN/ SET UP; BED MOB WITH MOD ASSIST; SITTING BALANCE ACT ON EOB WITH SBA. MARÍA RACHEL, OTR/L
[2019-03-05 13:04] VITALS: BP 120/71
--- NOTE | 2019-03-05 13:19 | MORECARE ---
CASE MANAGEMENT DISCHARGE SUMMARY PATIENT: RASHEED BOYD UNIT: [id number] ADM DATE: 02/22/19 AGE: 63 : 57 SEX: F ROOM/BED: D.2220 AUTHOR: TREE,DOC PHYSICIAN: REFERRING PHYSICIAN: MARQUEZ GAUTAM MD DATE OF SERVICE: 03/05/19 Discharge Plan Patient Name: RASHEED BOYD Facility: [facility]:[place] : 1955 Planned Disposition: Inpatient Rehab Anticipated Discharge Date: Discharge Date: Expected LOS: Initial Reviewer: [email or web address] Initial Review Date: 02/25/2019 Generated: 03/05/19 2:18 pm Comments DCP- Discharge Planning Updated by [id number]: Mary Martinez on 03/05/19 12:[address] Updated clinical sent to [facility] inpatient rehab. CM will continue to follow and assist with discharge planning/needs. DCP- Discharge Planning Updated by [email or web address]: Deyanira Aldrich on 03/01/19 4:[address] [facility] ([facility]) called this am to find out status of patient. They plan to evaluate patient once she is more stable. CM will continue to follow and assist as needed with discharge planning / needs. DCP- Discharge Planning Updated by [id number]: Deyanira Aldrich on 02/26/19 1:[address] CM called and spoke with admissions @ [facility] . They stated that they currently didn't have a bed available but could potentially have a bed by Friday. They stated that they will be sending a liaison over today to interview patient and finish screen. CM will continue to follow and assist as needed with discharge planning / needs. DCP- Discharge Planning Updated by [id number]: Mary Martinez on 02/25/19 11:[address] [facility] inpatient rehab does not accept patient's insurance. I informed the patient and sent referral to [facility]. CM will continue to follow and assist with discharge planning/needs. DCP- Discharge Planning Updated by [id number]: Mary Martinez on 02/25/19 10:[address] Patient Name: RASHEED BOYD Admission Status: ER Accout number: [id number] Admission Date: 02-22-2019 : 1955 Admission Diagnosis:OTHER FRACTURE OF SACRUM, INIT ENCNTR FOR CLOSED FRACTU Attending: MARQUEZ GAUTAM Current LOS: 3 Anticipated DC Date: Planned Disposition: Inpatient Rehab Primary Insurance: BLUE CROSS TRUE BLUE PPO Discharge Planning Comments: CM met with patient to discuss discharge planning/needs, her sister from [place] is in the room and verbal consent received to discuss discharge planning/needs with sister present. She was independent prior to arrival. She lives with her in a one level home. I discussed the availability of inpatient rehab, SNF, home health and DME. I informed her that Dr. Gautam suggests rehab or skilled facility. She would like a referral sent to [facility] inpatient rehab and if her insurance is not accepted to [facility]. Inpatient rehab screen ordered. CM will continue to follow and assist with discharge planning/needs. Singing Telegram Performer: Mary Juan DCPIA - Discharge Planning Initial Assessment Updated by [id number]: Mary Martinez on 02/25/19 11:02 am * Is the patient Alert and Oriented? Yes * How many steps to enter\exit or inside your home? 2/0 * PCP Dr. Gautam * Pharmacy [facility] in [place] * Preadmission Environment Home with Family * ADLs Partial Dependent * Partial ADLs (Assistance needed) Ambulation * Equipment Bedside Commode Crutch Walker * List name and contact numbers for known caregivers / representatives who currently or will assist patient after discharge: Vladislav Boyd - spouse - [phone] Jossie Galarza - sister - [phone] * Verbal permission to speak to the caregivers and representatives has been obtained from the patient. Yes * Community resources currently utilized None * Additional services required to return to the preadmission environment? Yes * Can the patient safely return to the preadmission environment? No * Has this patient been hospitalized within the prior 30 days at any hospital? No Last DP export: 03/03/19 11:28 a Patient Name: RASHEED BOYD Page 85913 at 1319 All edits/amendments must be made on the electronic document DICTATION DATE: 03/05/19 1318 [employer] LABORATORY MANAGER: ABDULLAHI 03/05/19 1318 RPT#: [id number] [place] DATE: STATUS: ADM IN [facility] [address] [place] [address] END OF REPORT
--- NOTE | 2019-03-05 15:21 | NUR ---
OT NOTE: PT COMPLETED BED MOB WITH MIN A. PT COMPLETED SUPINE TO SIT WITH MIN A. PT COMPLETED BED TO CHAIR TRANSFER WITH MAX A. PT COMPLETED GROOMING TASKS WITH SET UP IN CHAIR. THANK YOU, SACHIN SEQUEIRA
[2019-03-05 17:20] VITALS: BP 101/67
--- NOTE | 2019-03-05 19:10 | NUR ---
AWAKE AND ALERT OX3 WITH TIME OFF PT IS WARM AND DRY BOWEL SOUNDS X4 SKIN IS YELLOW LCTA DENIES MUCH PAIN AT THIS TIMEBED LOW AND LOCKED AND CALL LIGHT IS IN REACH
[2019-03-05 20:00] VITALS: BP 100/55
[2019-03-06] VITALS: BP 113/66
--- NOTE | 2019-03-06 00:25 | NUR ---
ASKED FOR GLUCOSE CHECK...REMAINS 126 ZOFRAN GIVEN AT THIS TIME PER PT NOT FEELING WELL ADMITS IT MIGHT BE NAUSEA
[2019-03-06 04:00] VITALS: BP 88/59
--- NOTE | 2019-03-06 07:32 | NUR ---
I have reviewed this patient and I concur with the Shift Assessment completed by the Licensed Practical Nurse today this shift.
--- NOTE | 2019-03-06 07:59 | NUR ---
ALERT AND ORIENTED. LUNGS CLEAR BILATERALLY IN ALL HUDSON. HEART SOUNDS S1 AND S2 HERAD IN ALL HUDSON. BOWEL SOUNDS ACTIVE X 4. SKIN INTACT WITHOUT REDNESS. PATIENT APPEARS JAUNDICE. HISTORY OF LIVER DISEASE. RANGEL PATENT DRAINING DARK YELLOW URINE. DENIES PAIN. REQUESTED AND GIVEN CUP OF ICE WATER. DENIES FURTHER NEEDS. BED LOW. FALL PRECAUTIONS IN PLACE. CALL JOHNSON AND PERSONAL ITEMS IN REACH. WILL CONTINUE TO MONITOR.
[2019-03-06 08:45] VITALS: BP 105/64
--- NOTE | 2019-03-06 10:30 | NUR ---
RESTING IN BED. AT BEDSIDE. DENIES PAIN. DENIES NEEDS. WILL CONTINUE TO MONITOR.
[2019-03-06 13:28] VITALS: BP 99/54
--- NOTE | 2019-03-06 13:37 | NUR ---
RESTING IN BED. AT BEDSIDE. DENIES PAIN. DENIES NEEDS. WILL CONTINUE TO MONITOR.
[2019-03-06 16:34] VITALS: BP 107/53
--- NOTE | 2019-03-06 17:43 | NUR ---
SITTING IN BED EATING DINNER. AT BEDSIDE. DENIES PAIN. DENIES NEEDS. WILL CONTINUE TO MONITOR.
--- NOTE | 2019-03-06 18:24 | NUR ---
RESTING IN BED. AT BEDSIDE. BED LOW. FALL PRECAUTIONS IN PLACE. CALL JOHNSON AND PERSONAL ITEMS IN REACH. DENIES PAIN. DENIES NEEDS.
[2019-03-06 20:00] VITALS: BP 92/54
[2019-03-07] VITALS: BP 99/57
--- NOTE | 2019-03-07 02:00 | NUR ---
PT C/O LEFT HIP PAIN. REPOSITIONED AND TURNED PT. NO OTHER NEEDS. WILL CONTINUE TO MONITOR.
[2019-03-07 04:00] VITALS: BP 96/56
--- NOTE | 2019-03-07 05:30 | NUR ---
PT HAD LOOSE STOOL. RECEIVED COMPLETE BED BATH AND LINEN CHANGE.
[2019-03-07 05:44] LABS: BASOPHILS 0.6 % (0-2); EOSINOPHILS 4.6 % (0-7); HEMATOCRIT 24.9 % (36.0-48.0); HEMOGLOBIN 8.2 g/dL (12-16); IMMATURE GRANULOCYTES 0.6 % (0-5); LYMPHOCYTES 18.4 % (15-50); MCH 26.4 pg (26.0-34.0); MCHC 32.9 g/dL (31.0-37.0); MCV 80.1 fL (80.0-100.0); MEAN PLATELET VOLUME 10.2 fL (7.4-10.4); MONOCYTES 19.8 % (2-11); PLATELET COUNT 103 10x3/uL (130-400); RBC 3.11 10x6/uL (4.00-5.40); RDW 22.7 % (11.5-14.5); WBC 3.5 10x3/uL (4.8-10.8)
[2019-03-07 05:52] LABS: ALBUMIN 3.5 g/dL (3.4-5.0); ALKALINE PHOSPHATASE 235 U/L (46-116); ALT (SGPT) 36 U/L (10-68); BILIRUBIN - TOTAL 5.08 mg/dL (0.2-1.3); CALC OSMOLALITY 275 mosm/kg (275-300); CALCIUM 9.2 mg/dL (8.5-10.1); CHLORIDE - SERUM 104 mmol/L (98-107); CREATININE - SERUM 0.6 mg/dL (0.6-1.3); GLUCOSE 107 mg/dL (74-106); POTASSIUM - SERUM 3.3 mmol/L (3.5-5.1); PROTEIN - SERUM 5.8 g/dL (6.4-8.2); SODIUM 138 mmol/L (136-145); UREA NITROGEN 13 mg/dL (7-18); eGFR NON AFRICAN AMERICAN > 90 mL/min (90-120)
--- NOTE | 2019-03-07 07:38 | NUR ---
ALERT AND ORIENTED TO SELF. LUNGS CLEAR BILATERALLY IN ALL HUDSON. HEART SOUNDS S1 AND S2 HEARD IN ALL HUDSON. BOWEL SOUNDS ACTIVE X 4. REDNESS TO BOTTOM COVERED WITH MEPILEX. REDNESS TO ALEJANDRA AREA COVERED WITH BARRIER CREAM. SKIN OTHERWISE INTACT WITHOUT REDNESS. COMPLEXION APPEARS JAUNDICE. HISTORY OF LIVER DISEASE. RANGEL PATENT DRAINING CONCENTRATED YELLOW URINE. DENIES PAIN. DENIES NEEDS. BED LOW. FALL PRECAUTIONS IN PLACE. CALL JOHNSON AND PERSONAL ITEMS IN REACH. WILL CONTINUE TO MONITOR.
[2019-03-07 09:08] VITALS: BP 101/65
--- NOTE | 2019-03-07 10:17 | NUR ---
REQUESTED AND GIVEN BEDPAN. DENIES FURTHER NEEDS. WILL CONTINUE TO MONITOR.
[2019-03-07 11:36] VITALS: BP 113/59
--- NOTE | 2019-03-07 12:33 | NUR ---
RESTING IN BED. DENIES PAIN. DENIES NEEDS. AT BEDSIDE. WILL CONTINUE TO MONITOR.
--- NOTE | 2019-03-07 12:52 | NUR ---
OT NOTE: PT REPORTING THAT SHE NEEDS TO USE BED MERIDA. PLACED PT ON BEDPAN AND PILATES COORDINATOR CLEANED PT FOLLOWING USE. CONTINUES WITH DIARRHEA. ASSISTED PT TO EOB WITH MAX ASSIST; SIMPLE GROOMING TASKS INCLUDING WASHING FACE AND HANDS AND BRUSHING HAIR WITH SET UP AND VC TO STAY ON TASK. STATIC SITTING BALANCE HAS IMPROVED AND PT NOW ABLE TO TOELRATE SITTING ON SIDE OF BED FOR APPROX 10 MIN WITHOUT SUPPORT; SIT TO STAND WITH MIN ASSIST WITH USE OF WALKER. PT UNABLE TO ADVANCE STEPS FORWARD, HOWEVER, ABLE TO SHIFT WT AND TAKE ONE SMALL STEP TO R SIDE WITH MOD ASSIST. ABLE TO STAND FOR APPROX 4-5 MIN. PERFORMED UE AND LE EXS IN IMPROVE STRENGTH TO ASSISST WITH ADLS AND MOBILITY. TRANSFERRED BACK TO BED WITH MOD ASSIST. MARÍA RACHEL, OTR/L
--- NOTE | 2019-03-07 13:00 | NUR ---
OFFLOADED TO LEFT SIDE.
--- NOTE | 2019-03-07 14:08 | NUR ---
RESTING IN BED. AT BEDSIDE. DENIES PAIN. DENIES NEEDS. WILL CONTINUE TO MONITOR.
[2019-03-07 16:31] VITALS: BP 107/57
--- NOTE | 2019-03-07 17:52 | NUR ---
PATIENT RESTING IN BED. DENIES PAIN. DENIES NEEDS. BED LOW. FALL PRECAUTIONS IN PLACE. CALL JOHNSON AND PERSONAL ITEMS IN REACH. WILL CONTIUE TO MONITOR.
[2019-03-07 20:00] VITALS: BP 118/67
[2019-03-08 04:00] VITALS: BP 102/55
[2019-03-08 04:56] LABS: BASOPHILS 0.2 % (0-2); EOSINOPHILS 3.1 % (0-7); HEMATOCRIT 26.3 % (36.0-48.0); HEMOGLOBIN 8.7 g/dL (12-16); IMMATURE GRANULOCYTES 0.2 % (0-5); LYMPHOCYTES 11.6 % (15-50); MCH 26.7 pg (26.0-34.0); MCHC 33.1 g/dL (31.0-37.0); MCV 80.7 fL (80.0-100.0); MEAN PLATELET VOLUME 10.4 fL (7.4-10.4); MONOCYTES 18.4 % (2-11); NEUTROPHILS 66.5 % (40-80); RBC 3.26 10x6/uL (4.00-5.40); RDW 23.9 % (11.5-14.5); WBC 4.1 10x3/uL (4.8-10.8)
[2019-03-08 05:02] LABS: PLATELET COUNT 131 10x3/uL (130-400)
[2019-03-08 05:16] LABS: ALBUMIN 3.7 g/dL (3.4-5.0); ALKALINE PHOSPHATASE 242 U/L (46-116); ALT (SGPT) 31 U/L (10-68); BILIRUBIN - TOTAL 5.21 mg/dL (0.2-1.3); CALC OSMOLALITY 271 mosm/kg (275-300); CALCIUM 8.9 mg/dL (8.5-10.1); CARBON DIOXIDE 21.3 mmol/L (21.0-32.0); CHLORIDE - SERUM 102 mmol/L (98-107); CREATININE - SERUM 0.7 mg/dL (0.6-1.3); GLUCOSE 115 mg/dL (74-106); POTASSIUM - SERUM 3.2 mmol/L (3.5-5.1); PROTEIN - SERUM 6.2 g/dL (6.4-8.2); SODIUM 136 mmol/L (136-145); eGFR NON AFRICAN AMERICAN 90 mL/min (90-120)
[2019-03-08 05:20] LABS: UREA NITROGEN 9 mg/dL (7-18)
[2019-03-08 08:52] VITALS: BP 96/55
[2019-03-08 12:23] VITALS: BP 105/62
[2019-03-08] MEDS ORDERED: ADVIL200 MG PO (14:26)
--- NOTE | 2019-03-08 15:50 | NUR ---
PATIENT RANGEL REMOVED ORDERED. IV IN LEFT FA REMOVED. CATHT TIP INTACT. CALL LIGHT WITHIN REACH. AWAITING AMBULANCE FOR DC.
--- NOTE | 2019-03-08 15:53 | MORECARE ---
CASE MANAGEMENT DISCHARGE SUMMARY PATIENT: RASHEED BOYD UNIT: [id number] ADM DATE: 02/22/19 AGE: 63 : 57 SEX: F ROOM/BED: D.2220 AUTHOR: TREE,DOC PHYSICIAN: REFERRING PHYSICIAN: MARQUEZ GAUTAM MD DATE OF SERVICE: 03/08/19 Discharge Plan Patient Name: RASHEED BOYD Facility: [facility]:[place] : 1955 Planned Disposition: Inpatient Rehab Anticipated Discharge Date: Discharge Date: Expected LOS: Initial Reviewer: [email or web address] Initial Review Date: 02/25/2019 Generated: 03/08/19 4:52 pm Comments DCP- Discharge Planning Updated by [email or web address]: Corine Grewal on 03/08/19 2:[address] patient will be discharging to inpatient rehab at [facility] via EMS today Dominique will be calling the ambulance she will go to room 311. aware of all the above. CM to follow and assist with dc planning as needed DCP- Discharge Planning Updated by [email or web address]: Mary Martinez on 03/05/19 12:[address] Updated clinical sent to [facility] rehab. CM will continue to follow and assist with discharge planning/needs. DCP- Discharge Planning Updated by [email or web address]: Deyanira Aldrich on 03/01/19 4:[address] [facility] called this am to find out status of patient. They plan to evaluate patient once she is more stable. CM will continue to follow and assist as needed with discharge planning / needs. DCP- Discharge Planning Updated by [id number]: Deyanira Aldrich on 02/26/19 1:[address] CM called and spoke with admissions @ [facility] . They stated that they currently didn't have a bed available but could potentially have a bed by Friday. They stated that they will be sending a liaison over today to interview patient and finish screen. CM will continue to follow and assist as needed with discharge planning / needs. DCP- Discharge Planning Updated by [id number]: Mary Martinez on 02/25/19 11:[address] [facility] inpatient rehab does not accept patient's insurance. I informed the patient and sent referral to Company. CM will continue to follow and assist with discharge planning/needs. DCP- Discharge Planning Updated by [email or web address]: Mary Martinez on 02/25/19 10:[address] Patient Name: RASHEED BOYD Admission Status: ER Accout number: [id number] Admission Date: 02-22-2019 : 1955 Admission Diagnosis:OTHER FRACTURE OF SACRUM, INIT ENCNTR FOR CLOSED FRACTU Attending: MARQUEZ GAUTAM Current LOS: 3 Anticipated DC Date: Planned Disposition: Inpatient Rehab Primary Insurance: [employer] TRUE BLUE PPO Discharge Planning Comments: CM met with patient to discuss discharge planning/needs, her sister from [place] is in the room and verbal consent received to discuss discharge planning/needs with sister present. She was independent prior to arrival. She lives with her in a one level home. I discussed the availability of inpatient rehab, SNF, home health and DME. I informed her that Dr. Gautam suggests rehab or skilled facility. She would like a referral sent to [facility] inpatient rehab and if her insurance is not accepted to Company. Inpatient rehab screen ordered. CM will continue to follow and assist with discharge planning/needs. Count Team Clerk: Mary Olivaresbrisa DCPIA - Discharge Planning Initial Assessment Updated by [email or web address]: Mary Martinez on 02/25/19 11:02 am * Is the patient Alert and Oriented? Yes * How many steps to enter\exit or inside your home? 2/0 * PCP Dr. Gautam * Pharmacy [facility] in [place] * Preadmission Environment Home with Family * ADLs Partial Dependent * Partial ADLs (Assistance needed) Ambulation * Equipment Bedside Commode Crutch Walker * List name and contact numbers for known caregivers / representatives who currently or will assist patient after discharge: Vladislav Boyd - spouse - [phone] Jossie Galarza - sister - [phone] * Verbal permission to speak to the caregivers and representatives has been obtained from the patient. Yes * Community resources currently utilized None * Additional services required to return to the preadmission environment? Yes * Can the patient safely return to the preadmission environment? No * Has this patient been hospitalized within the prior 30 days at any hospital? No Last DP export: 03/05/19 12:19 pm Patient Name: RASHEED BOYD Page 51907 at 1553 All edits/amendments must be made on the electronic document DICTATION DATE: 03/08/191551 OUTPATIENT RECEPTIONIST: ABDULLAHI 03/08/191551 RPT#: [id number] DC DATE: STATUS: ADM IN [facility] [address] [place] [address] END OF REPORT
--- NOTE | 2019-03-08 16:00 | NUR ---
REPORT CALLED TO FLACO AT REHAB.
--- NOTE | 2019-03-08 16:30 | NUR ---
PATIENT VOIDED 200 ML AT THIS TIME. NO PROBLEMS NOTED. CALL LIGHT WITHIN REACH.
[2019-03-08 16:35] VITALS: BP 104/59
--- NOTE | 2019-03-08 16:45 | NUR ---
PATIENT ESCORTED TO AMBULANCE VIA STRECHER BY PARARESCUE MANAGER WITH PERSONAL BELONGINGS.
== END 2019-03-08 16:45 | DRG 981 ==
LOC: D.ER 12:29 → D.MS 17:00 → D.ICU 17:00 → D.CVICU 02-25 15:29 → D.MS 02-26 15:44 → D.ICU 02-27 22:35 → D.MS 03-02 16:13
PROVIDERS: Family Medicine; Radiology Diagnostic Radiology; ADMIT Family Medicine; ATTEND Family Medicine
PROC: 06183J4 Bypass Portal Vein to Hepatic Vein with Synthetic Substitute, Percutaneous Approach (ICD-10-PCS; principal; 2019-02-25)
DX: S32.19XA Other fracture of sacrum, initial encounter for closed fracture (principal); J96.01 Acute respiratory failure with hypoxia; S32.511A Fracture of superior rim of right pubis, initial encounter for closed fracture; D62 Acute posthemorrhagic anemia; W19.XXXA Unspecified fall, initial encounter; K70.31 Alcoholic cirrhosis of liver with ascites; E11.9 Type 2 diabetes mellitus without complications; E03.9 Hypothyroidism, unspecified; D64.9 Anemia, unspecified; K70.40 Alcoholic hepatic failure without coma

== ENCOUNTER → 2019-03-22 16:56 | Outpatient (CLI) | payer BC ==
[2019-02-26 12:17] VITALS: BMI 18.6
[~2019-03-22 16:56] MED LIST changes: +ADVIL200 MG PO
== END | disposition home or self-care (01) ==
LOC: D.US 16:56
PROVIDERS: ATTEND Orthopaedic Surgery
DX: R60.0 Localized edema (principal)

== ENCOUNTER 2019-08-21 21:30 | Inpatient (IN) | payer BC ==
[~2019-08-21] VITALS: Ht 170.2 cm; Wt 47.5 kg
[2019-08-21] MEDS ORDERED: LASIX40 MG PO (22:08)
[2019-08-21] MEDS ORDERED: CHRONULAC30 ML PO (22:10)
[2019-08-21 22:30] VITALS: BP 126/66
[2019-08-21 22:42] LABS: APPEARANCE CLEAR (CLEAR); BILIRUBIN NEGATIVE (NEGATIVE); COLOR YELLOW (YELLOW); GLUCOSE 1000 mg/dL (NEGATIVE); KETONE MODERATE mg/dL (NEGATIVE); NITRITE NEGATIVE (NEGATIVE); PROTEIN NEGATIVE (NEGATIVE); UROBILINOGEN NORMAL (NORMAL)
[2019-08-21 22:45] LABS: HEMATOCRIT 30.8 % (36.0-48.0); HEMOGLOBIN 9.4 g/dL (12-16); MCH 23.7 pg (26.0-34.0); MCHC 30.5 g/dL (31.0-37.0); MCV 77.6 fL (80.0-100.0); MEAN PLATELET VOLUME 9.9 fL (7.4-10.4); PLATELET COUNT 109 10x3/uL (130-400); RBC 3.97 10x6/uL (4.00-5.40); RDW 20.7 % (11.5-14.5); WBC 2.2 10x3/uL (4.8-10.8)
[2019-08-21 22:48] LABS: KETONE - SERUM NEGATIVE (NEGATIVE)
[2019-08-21 23:04] LABS: ALBUMIN 2.8 g/dL (3.4-5.0); ALKALINE PHOSPHATASE 136 U/L (46-116); ALT (SGPT) 16 U/L (10-68); CALCIUM 8.9 mg/dL (8.5-10.1); CARBON DIOXIDE 19.5 mmol/L (21.0-32.0); CHLORIDE - SERUM 94 mmol/L (98-107); MAGNESIUM - SERUM 1.6 mg/dL (1.8-2.4); POTASSIUM - SERUM 3.4 mmol/L (3.5-5.1); PROTEIN - SERUM 7.6 g/dL (6.4-8.2); SODIUM 133 mmol/L (136-145); UREA NITROGEN 11 mg/dL (7-18); eGFR NON AFRICAN AMERICAN 59 mL/min (90-120)
[2019-08-21 23:25] LABS: EOSINOPHILS 2 % (0-7); LYMPHOCYTES 27 % (15-50); MONOCYTES 21 % (2-11); NEUTROPHILS 50 % (40-80)
[2019-08-21 23:26] LABS: PLATELET ESTIMATE DECREASED
[2019-08-21 23:33] LABS: CALC OSMOLALITY 291 mosm/kg (275-300); GLUCOSE 587 mg/dL (74-106)
[2019-08-22] VITALS (7 sets, daily range): BP systolic 107–126; BP diastolic 57–70; BMI 16.1
--- NOTE | 2019-08-22 00:14 | NUR ---
PT UP TO BEDSIDE COMMODE TOLERATED WELL
[2019-08-22 00:58] LABS: APPEARANCE CLEAR (CLEAR); BILIRUBIN NEGATIVE (NEGATIVE); COLOR YELLOW (YELLOW); GLUCOSE 50 mg/dL (NEGATIVE); KETONE SMALL mg/dL (NEGATIVE); NITRITE NEGATIVE (NEGATIVE); PROTEIN NEGATIVE (NEGATIVE); UROBILINOGEN NORMAL (NORMAL)
[2019-08-22 00:59] LABS: RED CELLS - URINE 0-5 /hpf (0-5); WHITE CELLS - URINE 0-5 /hpf (NEGATIVE)
--- NOTE | 2019-08-22 00:59 | NUR ---
PT UP TO BEDSIDE COMMODE AT THIS TIME STOOL X1
--- NOTE | 2019-08-22 01:41 | NUR ---
PT UP TO BEDSIDE COMMODE PT TOLERATED WELL STOOL X 1
--- NOTE | 2019-08-22 01:55 | NUR ---
PT TO ROOM 2127 VIA WHEELCHAIR ACCOMPANIED BY HOSPITAL STAFF.
--- NOTE | 2019-08-22 07:50 | NUR ---
ASSESSMENT DONE. DENIES NEEDS
--- NOTE | 2019-08-22 09:28 | NUR ---
I have reviewed this patient and I concur with the Shift Assessment completed by the Licensed Practical Nurse today this shift.
--- NOTE | 2019-08-22 19:20 | NUR ---
RECEIVED REPORT, WILL ASSUME CARE OF PT, SITTING UP IN BED, WATCHING TV, DENIES ANY NEEDS AT THIS TIME, BED IS LOW, SRX2, CALL LIGHT IN REACH, WILL CONTINUE PLAN OF CARE
--- NOTE | 2019-08-22 22:33 | NUR ---
ASSISTED PT TO BATHROOM AND BACK TO BED, CALL LIGHT IN REACH, WILL CONTINUE PLAN OF CARE
--- NOTE | 2019-08-22 23:20 | NUR ---
ASSISTED TO BATHROOM/BACK TO BED, ALARM IS ON, WILL CONTINUE PLAN OF CARE
[2019-08-23 04:39] VITALS: BP 106/50
--- NOTE | 2019-08-23 05:01 | NUR ---
I have reviewed this patient and I concur with the Shift Assessment completed by the Licensed Practical Nurse today this shift.
[2019-08-23 05:41] LABS: ALBUMIN 2.1 g/dL (3.4-5.0); ALKALINE PHOSPHATASE 74 U/L (46-116); BILIRUBIN - TOTAL 1.72 mg/dL (0.2-1.3); CALCIUM 7.6 mg/dL (8.5-10.1); CHLORIDE - SERUM 101 mmol/L (98-107); PROTEIN - SERUM 6.2 g/dL (6.4-8.2); SODIUM 136 mmol/L (136-145)
[2019-08-23 05:55] LABS: BASOPHILS 1.8 % (0-2); EOSINOPHILS 6.6 % (0-7); HEMATOCRIT 28.1 % (36.0-48.0); HEMOGLOBIN 8.8 g/dL (12-16); LYMPHOCYTES 34.5 % (15-50); MCH 23.5 pg (26.0-34.0); MCHC 31.3 g/dL (31.0-37.0); MEAN PLATELET VOLUME 9.6 fL (7.4-10.4); MONOCYTES 25.7 % (2-11); NEUTROPHILS 31.4 % (40-80); RBC 3.74 10x6/uL (4.00-5.40); RDW 20.5 % (11.5-14.5); WBC 2.3 10x3/uL (4.8-10.8)
[2019-08-23 05:56] LABS: MCV 75.1 fL (80.0-100.0); PLATELET COUNT 83 10x3/uL (130-400)
[2019-08-23 05:58] LABS: GLUCOSE 224 mg/dL (74-106); UREA NITROGEN 6 mg/dL (7-18)
[2019-08-23 05:59] LABS: CALC OSMOLALITY 276 mosm/kg (275-300); CREATININE - SERUM 0.7 mg/dL (0.6-1.3); eGFR NON AFRICAN AMERICAN 90 mL/min (90-120)
[2019-08-23 06:00] LABS: ALT (SGPT) 11 U/L (10-68); CARBON DIOXIDE 26.3 mmol/L (21.0-32.0); POTASSIUM - SERUM 2.4 mmol/L (3.5-5.1)
--- NOTE | 2019-08-23 07:20 | NUR ---
RECIEVE REPORT. RESTING IN BED. ALERT AND ORIENTED X4. BED ALARM ON. CALLS FOR ASSISTANCE TO RESTROOM. EXPRESSES WANTING TO GO HOME. DENIES ANY NEEDS AT THIS TIME. CONTINUE PLAN OF CARE AND SAFETY PRECAUTIONS.
[2019-08-23 08:43] VITALS: BP 90/51
[2019-08-23 11:12] LABS: PLATELET ESTIMATE DECREASED
[2019-08-23 12:29] VITALS: BP 127/73
[2019-08-23 14:37] VITALS: Ht 170.2 cm; Wt 47.5 kg
[2019-08-23 17:35] VITALS: BP 104/58
--- NOTE | 2019-08-23 17:51 | NUR ---
ALERT AND ORIENTED X4. SITTING UP IN BED. PER ELECTROLYTE PROTOCOL POTASSIUM REDRAW RESULT 3.8. VITALS STABLE. BED ALARM ON. DENIES ANY NEEDS. EXPRESSES READY TO GO HOME VIA VERBALLY. DENIES ANY NEEDS AT THIS TIME. CONTINUE PLAN OF CARE AND SAFETY PRECAUTIONS.
[2019-08-23] MEDS ORDERED: PIOGLITAZONE15 MG PO (19:23)
[2019-08-23] MEDS ORDERED: CHRONULAC30 ML PO (19:23)
--- NOTE | 2019-08-23 19:45 | NUR ---
EVEVING ROUNDS COMPLETED. PT IN BED WITH EYES OPEN. VSS, AAOX2, WITH MILD CONFUSION. PT NOTIFIED ME THAT SHE SPOKE WITH DR. DAIN ACOSTA, AND HE HAS DECIDED TO DC HER TODAY. NOTIFIED PT THAT DC ORDERS ARE NOT IN MY COMPUTER AT THIS TIME, BUT WILL COMMENCE WORKING ON IT ONCE THE ORDERS ARE IN. DIET SPRITE PROVIDED PER PT'S REQUEST. PT DENIES ANY FURTHER NEEDS AT THIS TIME. WILL CTM.
--- NOTE | 2019-08-23 20:00 | NUR ---
DC ORDERS IN. PT REFUSE ALL MEDS AND VITAL SIGN. STATES SHE IS READY TO GO HOME. HELPED PT CALL HER SHERICE. HE STATE, HE WILL BE "HERE" IN ABOUT AN HR. WILL CTM.
--- NOTE | 2019-08-23 22:19 | NUR ---
DC INSTRUCTION PROVIDED TO SPOUSE AND PT. BOTH VERBALIZE UNDERSTANDING. PIV REMOVED AND SITE TAPED. ALL PT PERSONAL BELONGINGS SENT HOME WITH PT. PT WHEELED OUT OF THE FLOOR BY SPOUSE. PT DC'D.
--- NOTE | 2019-08-24 08:09 | MORECARE ---
CASE MANAGEMENT DISCHARGE SUMMARY PATIENT: RASHEED BOYD UNIT: [id number] ADM DATE: 08/21/19 AGE: 64 : 57 SEX: F ROOM/BED: D.5515 AUTHOR: BENITA LEAVITT PHYSICIAN: REFERRING PHYSICIAN: AUBREY ARSHAD MD DATE OF SERVICE: 08/24/19 Discharge Plan Patient Name: RASHEED BOYD [facility] : 1955 Planned Disposition: Home Anticipated Discharge Date: 08/23/19 Discharge Date: 08/23/2019 Expected LOS: 2 Initial Reviewer: [email or web address] Initial Review Date: 08/24/2019 Generated: 08/24/19 9:08 am Patient Name: RASHEED BOYD Page 14225 at 0809 All edits/amendments must be made on the electronic document DICTATION DATE: 08/24/19 08 VACUUM BOTTLE ASSEMBLER: ABDULLAHI 08/24/19 08 RPT#: [id number] DC DATE:08/23/19 STATUS: DIS IN [facility] [address] [place] [id number] END OF REPORT
== END 2019-08-23 22:21 | disposition home or self-care (01) | DRG 637 ==
LOC: D.ER 21:30 → D.M2 23:54
PROVIDERS: Family Medicine; ADMIT Family Medicine; ATTEND Family Medicine
DX: E11.65 Type 2 diabetes mellitus with hyperglycemia (principal); K72.00 Acute and subacute hepatic failure without coma; K74.60 Unspecified cirrhosis of liver; E03.9 Hypothyroidism, unspecified; F10.20 Alcohol dependence, uncomplicated

== ENCOUNTER 2019-11-02 13:11 | Emergency (ER) | payer MEDICAID ==
[~2019-11-02] VITALS: Ht 170.2 cm; Wt 48.2 kg
[~2019-11-02 13:11] MED LIST changes: +PIOGLITAZONE15 MG PO
[2019-11-02 13:29] VITALS: Ht 170.2 cm; Wt 48.2 kg
[2019-11-02 14:15] LABS: BASOPHILS 0.2 % (0-2); EOSINOPHILS 0 % (0-7); HEMATOCRIT 39.6 % (36.0-48.0); HEMOGLOBIN 13.1 g/dL (12-16); IMMATURE GRANULOCYTES 0.2 % (0-5); MCH 31.5 pg (26.0-34.0); MCHC 33.1 g/dL (31.0-37.0); MCV 95.2 fL (80.0-100.0); MEAN PLATELET VOLUME 9.3 fL (7.4-10.4); MONOCYTES 10.6 % (2-11); PLATELET COUNT 76 10x3/uL (130-400); RBC 4.16 10x6/uL (4.00-5.40); WBC 4.5 10x3/uL (4.8-10.8)
[2019-11-02 14:19] LABS: INR 1.16 (0.85-1.17); PROTIME 14.7 SECONDS (11.6-15.0)
[2019-11-02 14:21] LABS: D-DIMER-QUANTITATIVE 0.72 ug/mLFEU (0.20-0.54)
[2019-11-02 14:29] LABS: CALC OSMOLALITY 281 mosm/kg (275-300); CALCIUM 8.6 mg/dL (8.5-10.1); CARBON DIOXIDE 26.4 mmol/L (21.0-32.0); CHLORIDE - SERUM 98 mmol/L (98-107); CREATININE - SERUM 0.9 mg/dL (0.6-1.3); GLUCOSE 272 mg/dL (74-106); POTASSIUM - SERUM 3.3 mmol/L (3.5-5.1); SODIUM 134 mmol/L (136-145); UREA NITROGEN 25 mg/dL (7-18); eGFR NON AFRICAN AMERICAN 67 mL/min (90-120)
[2019-11-02 14:40] LABS: ALBUMIN 2.6 g/dL (3.4-5.0); ALKALINE PHOSPHATASE 127 U/L (30-120); ALT (SGPT) 39 U/L (10-68); BILIRUBIN - TOTAL 1.84 mg/dL (0.2-1.3); CKMB 0.7 U/L (0.0-3.6); CREATINE KINASE 107 UL (21-215); PROTEIN - SERUM 6.6 g/dL (6.4-8.2); TROPONIN-I 0.047 ng/mL (0.000-0.060)
[2019-11-02 15:15] LABS: PLATELET ESTIMATE DECREASED
[2019-11-02 18:40] LABS: BACTERIA MANY /hpf (NEGATIVE); BILIRUBIN NEGATIVE (NEGATIVE); EPITHELIAL CELLS OCC /hpf (0-5); GLUCOSE 500 mg/dL (NEGATIVE); KETONE NEGATIVE (NEGATIVE); NITRITE POSITIVE (NEGATIVE); RED CELLS - URINE OCC /hpf (0-5); SPECIFIC GRAVITY 1.015 (1.005-1.020); UROBILINOGEN NORMAL (NORMAL); WHITE CELLS - URINE 0-5 /hpf (NEGATIVE)
[2019-11-02] MEDS ORDERED: MACROBID100 MG PO (19:05)
[2019-11-02] MEDS ORDERED: ZOFRAN4 MG PO (19:05)
[2019-11-02 19:25] VITALS: BP 137/65
== END 2019-11-02 19:27 | disposition home or self-care (01) ==
LOC: D.ER 13:11
PROVIDERS: Family Medicine
DX: N39.0 Urinary tract infection, site not specified (principal); R53.1 Weakness; E11.9 Type 2 diabetes mellitus without complications; E07.9 Disorder of thyroid, unspecified; R06.02 Shortness of breath

== ENCOUNTER 2019-11-18 07:16 | Inpatient (IN) | payer MEDICAID ==
[~2019-11-18] VITALS: Ht 170.2 cm; Wt 71.5 kg
[2019-11-18] VITALS (51 sets, daily range): BP systolic 83–119; BP diastolic 45–80; BMI 19.6
--- NOTE | ~2019-11-18 | HEMODYNAMI ---
PATIENT:RASHEED BOYD MEDICAL RECORD: [id number] : 57 LOCATION:D.MS Wallace2208 ADMISSION DATE: 11/18/19 Generatedon:12/06/201915:31 Patient name: RASHEED BOYD Patient #: [id number] SSN: : 1955 Date of study: 12/06/2019 Page: Of Hemodynamic Procedure Report Patient Data Patient Demographics Procedure consent was obtained First Name: RASHEED Gender: Female Last Name: OLIVER : 1955 Middle Initial: RAJNI Age: 64 year(s) Patient #: [id number] Race: Unknown Additional ID: [id number] Contact details Address: [address] [place] [address] [facility] State: [place] City: [facility] Zip code: [address] Past Medical History Allergies Allergen Reaction Date Comments Reported Sulfa drugs 12/18/2018 Other allergy 12/06/2019 nsaids/sulfa Admission Admission Data Admission Date: 11/18/2019 Admission Time: 8:47 Room #: D.2208 Procedure Procedure Types Cath Procedure Peripheral Cath Diagnostic Procedure Miscellaneous Pleurex Pleurex Cath Place w/ Imaging Procedure Description Procedure Date Procedure Date: 12/06/2019 Procedure Start Time: 15:00 Procedure Staff Name Function Rich Ward MD Performing Physician ARIK PINA RT Monitor Michel Verde RT Scrub Rasheed Rodrigues RN Nurse Procedure Data Cath Procedure Fluoroscopy Diagnostic fluoroscopy Total fluoroscopy Time: 0.3 time: 0.3 min min Procedure Medications Medication Administration Route Dosage Ancef (1Gm/50ml NS) I.V.P.B 2 g Versed I.V. 1 mg Fentanyl I.V. 25 mcg Lidocaine 1% added to field 20 Heparin Flush Bag added to field 1 bags (1000units/500ml NS) Fentanyl I.V. 25 mcg Versed I.V. 1 mg Fentanyl I.V. 50 mcg Hemodynamics Rest Heart Rate: 63 (bpm) Snapshots Pre Cath Intra NCS Post Cath Vital Signs Time Heart Resp SPO2 etCO2 NIBP (mmHg) Rhythm Pain Sedation Rate (ipm) (%) (mmHg) Status Level (bpm) 14:37:09 64 26 24.6 124/74(104) NSR 0 (11) 10(A) , No pain 14:41:17 63 17 26.1 118/70(105) NSR 0 (11) 10(A) , No pain 14:45:23 64 21 24.6 121/69(98) NSR 0 (11) 10(A) , No pain 14:49:30 63 22 100 25.3 118/62(87) NSR 0 (11) 10(A) , No pain 14:53:38 59 19 100 21.6 120/62(101) NSR 0 (11) 10(A) , No pain 14:57:48 61 17 100 23.8 122/59(96) NSR 0 (11) 10(A) , No pain 15:01:56 61 20 100 26.1 114/63(76) NSR 0 (11) 8(A) , No pain 15:06:01 60 19 100 25.3 113/62(89) NSR 0 (11) 10(A) , No pain 15:10:07 64 18 100 29.8 113/61(92) NSR 0 (11) 10(A) , No pain 15:14:13 62 16 100 29 115/62(96) NSR 0 (11) 10(A) , No pain 15:18:19 60 17 100 29.1 111/62(94) NSR 0 (11) 10(A) , No pain 15:22:25 56 16 100 31.3 118/57(93) NSR 0 (11) 10(A) , No pain 15:26:33 59 20 100 23.1 121/61(92) NSR 0 (11) 10(A) , No pain 15:30:41 62 15 100 29.1 110/61(93) NSR 0 (11) 10(A) , No pain Medications Time Medication Route Dose Verified Delivered Reason Notes Eff ectiveness by by 14:46:06 Ancef (1Gm/50ml I.V.P.B 2 g Rich Urbina Per NS) Sylvia Rodrigues RN physician 14:57:25 Versed I.V. 1 mg Rich Urbina for Sylvia Rodrigues RN sedation 14:57:36 Fentanyl I.V. 25 Rich Urbina for [facility] Sylvia Rodrigues RN sedation 14:57:58 Lidocaine 1% added 20ml Rich Villanueva for local to vial Sylviasilvia Ward anesthetic field cathy ARCE MD 14:58:10 Heparin Flush added 1 Rich Villanueva used for Bag to bags Sylvia Ward procedure (1000units/500ml field MD ARCE NS) 15:02:43 Fentanyl I.V. 25 Rich Urbina for mcg Sylvia Napierr RN sedation 15:14:38 Versed I.V. 1 mg Rich Urbina for Sylvia Napierr RN sedation 15:14:48 Fentanyl I.V. 50 Rich Urbina for [facility] Sylvia Rodrigues RN sedation Procedure Log Time Note 14:22:29 Michel Verde RT (R) (CV) sent for patient. Start room use. 14:22:30 Time tracking: Regular hours (M-F 7:00 - 5:00) 14:22:37 Patient received from Med/Surg to IR Alert and oriented. Tansferred to table in Supine position. 14:22:39 Signed procedure consent form obtained from patient. 14:22:40 Warm blankets applied, and esthela hugger turned on for patient comfort. 14:22:41 Correct patient and procedure confirmed by team. 14:22:49 - 14:22:53 H&P Date Dictated: 12/06/2019 Within 30 days and on chart.. 14:22:54 Pre-procedure instructions explained to patient. 14:22:54 Pre-op teaching completed and patient verbalized understanding. 14:23:09 Patient allergic to Other allergynsaids/sulfa 14:23:13 Is the patient allergic to Iodine/contrast media? No. 14:23:16 If diabetic: On Metformin? Yes 14:23:18 - 14:34:18 ----Pre-sedation anethsthesia assessment.---- 14:34:21 Previous problem with sedation/anesthesia? No ? 14:34:23 Snore? No 14:34:26 Sleep apnea? No 14:34:27 Deviated septum? No 14:34:28 Opens mouth fully? Yes 14:34:31 Sticks out tongue? Yes 14:34:33 Airway obstruction? No ? 14:34:36 Dentures? No ? 14:34:37 - 14:34:49 IV patent on arrival in left forearm with 0.9% NaCl at KVO. 14:35:06 Right abdomen area was prepped with chlora-prep and draped in sterile fashion 14:35:07 Alarms reviewed by Gosia Mejia 14:35:08 Sharps counted by scrub and verified by Severino 14:35:09 - 14:36:04 ECG and BP/O2 sat monitors applied to patient. 14:36:06 Vital chart was started 14:36:07 Baseline sample Acquired. 14:36:12 Full Disclosure recording started 14:36:14 - 14:39:40 Baseline sample Acquired. 14:39:58 - 14:40:14 ASPIRA PLEURAL DRAIN CATH (8955905) opened to sterile field. 14:40:15 ASPIRA DRESSING KIT ([id number] opened to sterile field. 14:40:21 Use device set IR Diagnostic 14:40:22 Bag Decanter (2001S) opened to sterile field. 14:40:22 Sterile Angiographic Pack opened to sterile field. 14:40:23 Tegaderm 4 x 4 (1626W) opened to sterile field. 14:46:06 Ancef (1Gm/50ml NS) 2 g I.V.P.B was administered by Rashede Rodrigues RN; Per physician; Verbal order read back and verified. 14:51:44 - 14:51:45 Physician paged 14:53:24 Physician arrived 14:54:38 --------ALL STOP TIME OUT------ 14:54:56 Final Timeout: patient, procedure, and site verified with staff and physician. All members of the team are in agreement. 14:55:01 Right abdomen site verified by team. 14:55:26 Procedure started. 14:57:25 Versed 1 mg I.V. was administered by Rasheed Rodrigues RN; for sedation; Verbal order read back and verified. 14:57:36 Fentanyl 25 mcg I.V. was administered by Rasheed Rodrigues RN; for sedation ; Verbal order read back and verified. 14:57:58 Lidocaine 1% 20ml vial x2 added to field was administered by Rich Ward MD; for local anesthetic; Verbal order read back and verified. 14:58:10 Heparin Flush Bag (1000units/500ml NS) 1 bags added to field was administered by Rich Ward MD; used for procedure; Verbal order read back and verified. 15:00:31 Local anesthetic to Abdominal area with Lidocaine 1% by Rich Ward MD.INITIAL ACCESS ONLY 15:00:31 YUCH needle opened to sterile field. 15:02:43 Fentanyl 25 mcg I.V. was administered by Rasheed Rodrigues RN; for sedation ; Verbal order read back and verified. 15:11:17 TUBING Contrast Injection High Pressure ([id number]) opened to sterile field. 15:11:53 STOPCOCK 3-Way Large Bore ([id number]) opened to sterile field. 15:14:38 Versed 1 mg I.V. was administered by Rasheed Rodrigues RN; for sedation; Verbal order read back and verified. 15:14:48 Fentanyl 50 mcg I.V. was administered by Rasheed Rodrigues RN; for sedation ; Verbal order read back and verified. 15:16:20 3-0 Vicryl Single Pack [id number] opened to sterile field. 15:16:21 SUTURE ETHILON 2-0 BLK MONO FS opened to sterile field. 15:16:22 Dermabond Pen opened to sterile field. 15:25:49 Procedure ended.(Physican Out) 15:26:24 Fluoroscopy time 00.30 minutes. 15:26:27 Dose Area Product 2 mGy/cm. 15:26:30 Sharps counted by scrub and verified by R.N. 15:26:31 Insertion/operative site no bleeding no hematoma. 15:26:47 Post Abdominal area:stable, soft, clean and dry 15:26:51 Post procedure instruction explained to patient.Patient verbalizes understanding. 15:26:53 Procedure and supply charges have been captured, reviewed, submitted an d are correct. 15:27:40 See physician's report for complete and final results. 15:27:53 Patient transfered to Med/Surg with Bed. 15:31:16 Vital chart was stopped Device Usage Item Name Manufacture Quantity Catalog Hospital Part Current Minimal Lot# / Number Charge Number Stock Stock Serial# Code ASPIRA Merit 1 [id number] [id number] [id number] 1 PLEURAL Medical DRAIN CATH ([id number]) ASPIRA Merit 1 [id number] 409783 738921 1 DRESSING KIT Medical ([id number] Bag Decanter Microtek 1 2001S 544013 60461 836195 5 (2001S) Medical Inc. Sterile Cardinal 1 [id number] 488591 418122 5 Angiographic Health Pack Tegaderm 4 x 3M 1 1626W 030334 973607 183779 5 4 (1626W) YUCH needle [facility] 1 [id number] 862499 889578 5 TUBING Merit 1 [id number] 522537 673985 247429 5 Contrast Medical Injection High Pressure ([id number]) STOPCOCK [employer] 1 [id number] 056740 0141 878035 5 [id number] 3-Way Large Bore ([id number]) CONNECTING [place] 1 [id number] 866371 573670 5 TUBE FOR Scientific DRAINAGE BAG ([id number]) 3-0 Vicryl Ethicon 1 [id number] 497517 431488 138779 5 Single Pack [id number] SUTURE Ethicon 1 [id number] 077121 782197 5 ETHILON 2-0 BLK MONO FS Dermabond Ethicon 1 [id number] 552964 866218 5 Pen Signature Audit [place] Stage Time Signature Unsigned Intra-Procedure 12/06/2019 ARIK PINA RT 3:31:11 PM (R) [facility] [address] [place] [address]
[~2019-11-18 07:16] MED LIST changes: +MACROBID100 MG PO
[2019-11-18 07:56] LABS: BASOPHILS 0.1 % (0-2); EOSINOPHILS 0 % (0-7); HEMATOCRIT 29.7 % (36.0-48.0); HEMOGLOBIN 10.3 g/dL (12-16); IMMATURE GRANULOCYTES 1.2 % (0-5); LYMPHOCYTES 1.7 % (15-50); MCHC 34.7 g/dL (31.0-37.0); MCV 89.5 fL (80.0-100.0); MEAN PLATELET VOLUME 10.6 fL (7.4-10.4); MONOCYTES 8.2 % (2-11); NEUTROPHILS 88.8 % (40-80); RBC 3.32 10x6/uL (4.00-5.40); RDW 15.1 % (11.5-14.5); WBC 16.9 10x3/uL (4.8-10.8)
[2019-11-18 08:07] LABS: APTT 31.7 SECONDS (22.8-39.4); INR 1.64 (0.85-1.17); PROTIME 19.2 SECONDS (11.6-15.0)
[2019-11-18 08:08] LABS: PLATELET COUNT 45 10x3/uL (130-400)
[2019-11-18 08:12] LABS: CALC OSMOLALITY 262 mosm/kg (275-300); CALCIUM 7.8 mg/dL (8.5-10.1); CARBON DIOXIDE 15.1 mmol/L (21.0-32.0); CHLORIDE - SERUM 97 mmol/L (98-107); CREATININE - SERUM 1.2 mg/dL (0.6-1.3); GLUCOSE 142 mg/dL (74-106); POTASSIUM - SERUM 5.8 mmol/L (3.5-5.1); SODIUM 126 mmol/L (136-145); UREA NITROGEN 34 mg/dL (7-18); eGFR NON AFRICAN AMERICAN 48 mL/min (90-120)
[2019-11-18 08:18] LABS: ALBUMIN 1.2 g/dL (3.4-5.0); ALKALINE PHOSPHATASE 169 U/L (30-120); ALT (SGPT) 66 U/L (10-68); BILIRUBIN - TOTAL 7.85 mg/dL (0.2-1.3); CKMB 0.7 U/L (0.0-3.6); CREATINE KINASE 29 UL (21-215); PROTEIN - SERUM 5.6 g/dL (6.4-8.2); TROPONIN-I 0.036 ng/mL (0.000-0.060)
--- NOTE | 2019-11-18 08:22 | NUR ---
PT ALERT AND ORIENT X 3, C/O PAIN ALL OVER, HX OF LIVER DX, LYING IN BED AT HTIS TIME, NO NEW COMPLAINTS, WILL CONTINUE TO MONITOR.
--- NOTE | 2019-11-18 08:33 | NUR ---
ERP INFORMED OF LACTIC ACID OF 4.0.
[2019-11-18 08:35] LABS: BILIRUBIN 2+ (NEGATIVE); EPITHELIAL CELLS RARE /hpf (0-5); GLUCOSE NEGATIVE (NEGATIVE); KETONE NEGATIVE (NEGATIVE); NITRITE NEGATIVE (NEGATIVE); RED CELLS - URINE OCC /hpf (0-5); SPECIFIC GRAVITY 1.015 (1.005-1.020); UROBILINOGEN 12 mg/dL (NORMAL); WHITE CELLS - URINE OCC /hpf (NEGATIVE)
[2019-11-18 09:00] LABS: BACTERIA FEW /hpf (NEGATIVE)
--- NOTE | 2019-11-18 10:19 | NUR ---
patient arrived to unit on 7.5 of dobutamine. bp 80/43 with map of 56. spo2 96 on room air. hr 96. abdomen distended.
--- NOTE | 2019-11-18 11:34 | NUR ---
DR PEÑA AWARE OF CONSULT
--- NOTE | 2019-11-18 11:34 | NUR ---
PAGED DR MARTINEZ AWARE OF CONSULT
--- NOTE | 2019-11-18 11:46 | NUR ---
DR MARTINEZ AT BEDSIDE. CONSETN OBTAINED VERBALLY. PATIENT DOES NOT HAVE GLASSES TO WRITE BUT STATED SHE DID CONSENT. PROCEDURE EXPLAINED TO HER. JES RN WAS A WITNESS TO CONSENT
[2019-11-18 14:34] LABS: BILIRUBIN 3+ (NEGATIVE); GLUCOSE NEGATIVE (NEGATIVE); KETONE NEGATIVE (NEGATIVE); NITRITE NEGATIVE (NEGATIVE); SPECIFIC GRAVITY 1.015 (1.005-1.020); UROBILINOGEN 12 mg/dL (NORMAL)
[2019-11-18 14:35] LABS: EPITHELIAL CELLS RARE /hpf (0-5); RED CELLS - URINE OCC /hpf (0-5); WHITE CELLS - URINE RARE /hpf (NEGATIVE)
[2019-11-18 14:36] LABS: BACTERIA FEW /hpf (NEGATIVE); GRANULAR CAST RARE /lpf (NONE SEEN); HYALINE CAST 0-5 /lpf (NONE SEEN)
--- NOTE | 2019-11-18 19:00 | NUR ---
ASSESSMENT COMPLETED. SEE FLOWSHEETS FOR ALL FINDINGS. PT A/OX4, WEAK. SR ON CM. DENIES ANY DISCOMFORT AT THIS TIME. PT REPOSITIONED FOR COMFORT. HOB UP. SIDE RAILS UPX2. CALL LIGHT IN REACH. CONT TO MONITOR.
--- NOTE | 2019-11-18 23:00 | NUR ---
REASSESSMENT COMPLETED. SEE FLOWSHEETS FOR ALL FINDINGS. NO ACUTE CHANGES NOTED IN PT'STATUS. CONT LEVOPHED PER ORDER TO KEEP SBP> 90. CPOC.
[2019-11-19] VITALS (94 sets, daily range): BP systolic 82–127; BP diastolic 44–88; Ht 170.2 cm; Wt 71.5 kg
[2019-11-19 05:31] LABS: BASOPHILS 0.1 % (0-2); EOSINOPHILS 0.5 % (0-7); HEMATOCRIT 27.7 % (36.0-48.0); HEMOGLOBIN 9.5 g/dL (12-16); IMMATURE GRANULOCYTES 0.4 % (0-5); LYMPHOCYTES 5.7 % (15-50); MCH 30.8 pg (26.0-34.0); MCHC 34.3 g/dL (31.0-37.0); MCV 89.9 fL (80.0-100.0); MEAN PLATELET VOLUME 10.9 fL (7.4-10.4); MONOCYTES 12.6 % (2-11); NEUTROPHILS 80.7 % (40-80); RBC 3.08 10x6/uL (4.00-5.40); RDW 15.7 % (11.5-14.5)
[2019-11-19 05:44] LABS: APTT 33.7 SECONDS (22.8-39.4); INR 1.91 (0.85-1.17); PROTIME 21.6 SECONDS (11.6-15.0)
[2019-11-19 05:47] LABS: ALBUMIN 1.7 g/dL (3.4-5.0); ALKALINE PHOSPHATASE 114 U/L (30-120); ALT (SGPT) 51 U/L (10-68); BILIRUBIN - TOTAL 7.93 mg/dL (0.2-1.3); CALC OSMOLALITY 270 mosm/kg (275-300); CALCIUM 7.4 mg/dL (8.5-10.1); CARBON DIOXIDE 17.5 mmol/L (21.0-32.0); CHLORIDE - SERUM 101 mmol/L (98-107); CREATININE - SERUM 0.7 mg/dL (0.6-1.3); GLUCOSE 194 mg/dL (74-106); PHOSPHOROUS 2.9 mg/dL (2.5-4.9); POTASSIUM - SERUM 4.2 mmol/L (3.5-5.1); PROTEIN - SERUM 5.2 g/dL (6.4-8.2); SODIUM 130 mmol/L (136-145); UREA NITROGEN 26 mg/dL (7-18); eGFR NON AFRICAN AMERICAN 90 mL/min (90-120)
[2019-11-19 06:01] LABS: WBC 11.1 10x3/uL (4.8-10.8)
[2019-11-19 06:02] LABS: PLATELET COUNT 44 10x3/uL (130-400)
--- NOTE | 2019-11-19 07:00 | NUR ---
REC'D REPORT AND RESUMED CARE, AWAKE AND CONFUSED, VSS, O2 VIA RA, LEVAPHED IN FUSING AT 5 MCG, RIGHT AC AND FA PIV SL, LT FA PIV SL, INFUSA PORT WITH ALL IVF, RANGEL TO GRAVITY WITH THEA DRAINAGE, HEEL BOOTS IN USE B/L, RIGHT HEEL WITH 50 CENT SIZE BLACK ON INNER ASPECT, B/L UPPER AND LOWER EXTREMITIES WITH GENERALIZED BRUISING, ASSESSMENT COMPLETED PER FLOWSWHEET, CALL LIGHT IN REACH, REQUSET TO STAY ON BACK, EDUCATED RE: PU, VERBALIZED UNDERSTANDING, BUT STAYS ON BACKSIDE, HOB AT 30 DEGREES
--- NOTE | 2019-11-19 08:35 | NUR ---
DR GAUTAM AT BEDSIDE FOR EVAL NEW ORDER GIVEN, DIET UPGRADED
--- NOTE | 2019-11-19 09:29 | HP ---
PATIENT: RASHEED BOYD MEDICAL RECORD: [id number] ACCOUNT: [id number] LOCATION:[facility] D.2302 : 57 ADMISSION DATE: 11/18/19 PCP: No PCP HISTORY AND PHYSICAL EXAMINATION DATE OF ADMISSION: 11/18/2019 CHIEF COMPLAINT: Fever with worsening confusion. HISTORY OF PRESENT ILLNESS: This is a 64-year-old female, who has been sick off and on for a few weeks. I saw her in the office a couple of days ago for followup of Emergency Room visit that she had on 11/02/2019. At that time, she has had some subjective fever, confusion. She had extensive work-up there and really did not find much, except maybe a urinary tract infection. She had been placed on Macrobid for an E. coli UTI that was pansensitive. Her had told me that some days she feels fine and up, and going and eating, and other days she is confused and seems to have fever. She does have a history of alcoholic cirrhosis for years. She also has type 2 diabetes, hypothyroidism, and depression. The patient denied any nausea or vomiting, but had fever and chills. She denied any shortness of breath or significant cough. No sore throat. She has had some generalized abdominal pain, but she has cirrhosis. She does admit to urinary frequency. In the ER, her sodium was 126, potassium was 5.8, CO2 was 15.1. She has elevated lactic acid, ammonia level was 35. Liver enzymes were elevated. Her total bilirubin was up to 7.85. Urinalysis basically showed a few bacteria. Her blood pressure was low and she was admitted to the ICU for septic shock. PAST MEDICAL AND SURGICAL HISTORY: Diabetes, alcoholic cirrhosis, hypothyroidism, depression, alcohol abuse, anemia, low white blood cell count, it was evaluated a few years ago by Dr. Garcia and felt to be due to her alcohol abuse. PAST SURGICAL HISTORY: She has had umbilical hernia repair times 2, she has had a total abdominal hysterectomy, she had TIPS procedure and at that time her tips procedure was complicated by hypotension requiring vasopressor earlier last year. ALLERGIES: AMBIEN, HYDROCODONE AND SULFA. HOME MEDICATIONS: Gabapentin 100 mg twice a day, metolazone 2.5 every day p.r.n. and edema, spironolactone 100 mg twice a day, Lasix 40 mg twice a day, potassium 20 mEq, has been taking 2-3 times a day. She has been on Levemir insulin 15 units a day, glimepiride 2 mg a day, levothyroxine 75 mcg a day, omeprazole 20 mg a day, lactulose 30 cc t.i.d., lorazepam 0.5 b.i.d. HABITS: Former smoker. She denies any alcohol use in the last year or more, and denies illicit drug use. FAMILY HISTORY: Father is . He had diabetes. Mother is living and reportedly good health. Maternal grandmother of breast cancer. REVIEW OF SYSTEMS: GENERAL: Her weight has fluctuated up and down, most likely due to her fluid status. HEENT: No particular sinus or allergy problems. HISTORY AND PHYSICAL [id number] RASHEED BOYD RESPIRATORY: No history of emphysema or asthma. CARDIAC: No known coronary disease. GASTROINTESTINAL: See above history with alcoholic cirrhosis with ascites and status post TIPS procedure. GENITOURINARY: No significant problems. She has had an occasional urinary tract infection. MUSCULOSKELETAL: No significant arthritic aches and pains. NEUROLOGIC: No seizures. No migraines. PSYCHIATRIC: She has depression and anxiety. PHYSICAL EXAMINATION: VITAL SIGNS: Temperature 100.2, pulse 90, respirations 20, her blood pressure was 76/40, O2 sat in mid to upper 90s. GENERAL: She is jaundiced. She is awake. She is alert. She is trying to eat jello. She is in the ICU at this time. HEENT: Grossly within normal limits. NECK: Supple. HEART: Regular rate and rhythm. LUNGS: Fairly clear. ABDOMEN: Distended, firm, some mild generalized tenderness. No guarding, no rebound, no mass. EXTREMITIES: She has no edema. NEUROLOGIC: She is alert. She seems to be near her normal baseline mental status. LABORATORY AND DIAGNOSTIC DATA: CBC showed a white count of 16,900, hemoglobin 10.3, hematocrit 29.7. Sodium 126, potassium 5.8, chloride 97, CO2 15.1, BUN 34, creatinine 1.2, glucose 142, calcium 7.8, total bilirubin 7.85, AST 56, ALT 66, alkaline phosphatase 169. Ammonia level is 35. Albumin is low at 1.2. Lactic acid is 4.0, magnesium 2.0. Cardiac enzymes are okay. ASSESSMENT: 1. Septic shock, now on Levophed. 2. Urinary tract infection. 3. Leukocytosis. 4. History of cirrhosis with elevated liver enzymes. 5. Hepatic encephalopathy, on lactulose. 6. Type 2 diabetes with neuropathy. 7. Hyponatremia. 8. Hyperkalemia. PLAN: She is in the ICU. She is on vasopressor to keep her pressure up. Blood and urine cultures have been obtained. Started on IV antibiotics, nebulizers p.r.n., DVT and GI prophylaxis. Dr. Hays has seen the patient and I appreciate his help for critical care. Other tests or procedures as warranted. TRANSINT:[id number] Voice Confirmation ID: [id number] DOCUMENT ID: [id number] HISTORY AND PHYSICAL [id number] RASHEED BOYD WILLIAM MD at 0929 CC: [id number] DICTATION DATE: 11/19/19820 CARBON BRUSH MAKER: 11/19/19 0915 ADM IN [facility] [address] [place] [address]
--- NOTE | 2019-11-19 11:16 | NUR ---
ANN WITH IR AT BEDSIDE, STATES SHE DISCUSSED WITH DR PETERSON AND HE WILL DO PARAECENTESIS ON FRIDAY, PATIENT SHOULD BE NPO AFTER MIDNIGHT ON FRIDAY
--- NOTE | 2019-11-19 13:30 | OP ---
PATIENT NAME: RASHEED BOYD MEDICAL RECORD: [id number] :57 LOCATION:D.[facility] D.2302 ADMISSION DATE:11/18/19 SURGEON: DELORES MARTINEZ MD DATE OF OPERATION: 11/18/2019 PREOPERATIVE DIAGNOSES: 1. Need for IV access. 2. Febrile illness. 3. Liver cirrhosis. POSTOPERATIVE DIAGNOSES: 1. Need for IV access. 2. Febrile illness. 3. Liver cirrhosis. PROCEDURE: Left subclavian vein triple-lumen central venous line placement. SURGEON: Delores Martinez MD REPORT OF PROCEDURE: The patient's left chest was prepped and draped in sterile fashion. A 5 cc of 1% lidocaine with epinephrine was infused into the surrounding tissues. A needle was used to cannulate the left subclavian vein and a guidewire was advanced with ease. Over this wire, a dilator was placed followed by the triple-lumen catheter. This catheter aspirated nonpulsatile dark blood and flushed easily in all 3 ports. This was sutured into place with 4-0 nylons and dressed appropriately. COMPLICATIONS: None. CONDITION: Stable. ANESTHESIA: Local. BLOOD LOSS: Minimal. Procedure done in the ICU at the bedside. TRANSINT:[id number] Voice Confirmation ID: [id number] DOCUMENT ID: [id number] DELORES MARTINEZ MD at 1330 CC: [id number] DICTATION DATE: 11/18/19 1200 STAPLE SIDE LASTER: 11/18/19 1220 ADM IN [facility] [id number] [place] [address]
--- NOTE | 2019-11-19 14:55 | NUR ---
LARGE DIARRHEA STOOL, SKIN CARE AND LINEN CHANGE COMPLETED
--- NOTE | 2019-11-19 14:58 | NUR ---
RT TO BEDSIDE FOR UPDRAFT TREATMENT, RESTING WITH NO SIGN OF DISTRESS, VSS, DENIES PAIN, NO ACUTE CHANGE FROM PREVIOUS, NO OTHER NEEDS AT THIS TIME, CALL LIGHT IN REACH
--- NOTE | 2019-11-19 19:00 | NUR ---
REPORT RECEIVED INITIAL ASSESSMENT COMPLETE. PT ORIENTED FOLLOWS COMMANDS SEE FLOWSHEET FOR FULL ASSESSMENT. LEFT TLSC WITH CVP READING 12. LEVOPHED GTT SEE IV FLOWSHEET FOR DRIP CHANGES. CM READING SR WITHOUT ECTOPY ALARMS ON AND AUDIBLE. ABD DISTENDED HYPERACTIVE BS ASCITES. JAUNDICED. BED LOW POSITION CL IN REACH WILL MONITOR
[2019-11-20] VITALS (30 sets, daily range): BP systolic 84–115; BP diastolic 45–84
--- NOTE | 2019-11-20 03:00 | NUR ---
REASSESSMENT COMPLETE NO CHANGES CPOC
--- NOTE | 2019-11-20 03:20 | NUR ---
ANSWERED PTS CALL LIGHT PT C/O PAIN REQUESTING PAIN MED AND HAS HAD BOWEL MOVEMENT. MEDICATED WITH TRAMADOL PER PRN EMAR. PARTIAL BATH AND LINEN CHANGE AFTER MODERATE SIZE BM
--- NOTE | 2019-11-20 04:30 | NUR ---
PT RESTING QUIETLY WITH EYES CLOSED WILL CONTINUE TO MONITOR
[2019-11-20 06:38] LABS: BASOPHILS 0 % (0-2); EOSINOPHILS 0.7 % (0-7); HEMOGLOBIN 8.8 g/dL (12-16); IMMATURE GRANULOCYTES 0.5 % (0-5); LYMPHOCYTES 9.6 % (15-50); MCH 30.8 pg (26.0-34.0); MCHC 33.8 g/dL (31.0-37.0); MCV 90.9 fL (80.0-100.0); MEAN PLATELET VOLUME 11.4 fL (7.4-10.4); MONOCYTES 11.5 % (2-11); NEUTROPHILS 77.7 % (40-80); RBC 2.86 10x6/uL (4.00-5.40); RDW 15.9 % (11.5-14.5)
[2019-11-20 06:43] LABS: ALKALINE PHOSPHATASE 106 U/L (30-120); ALT (SGPT) 44 U/L (10-68); BILIRUBIN - TOTAL 6.68 mg/dL (0.2-1.3); CALC OSMOLALITY 266 mosm/kg (275-300); CALCIUM 7.6 mg/dL (8.5-10.1); CARBON DIOXIDE 17.9 mmol/L (21.0-32.0); CHLORIDE - SERUM 104 mmol/L (98-107); CREATININE - SERUM 0.6 mg/dL (0.6-1.3); GLUCOSE 177 mg/dL (74-106); LDH 119 U/L (81-234); MAGNESIUM - SERUM 1.9 mg/dL (1.8-2.4); PHOSPHOROUS 2.1 mg/dL (2.5-4.9); POTASSIUM - SERUM 4.2 mmol/L (3.5-5.1); SODIUM 130 mmol/L (136-145); UREA NITROGEN 17 mg/dL (7-18); eGFR NON AFRICAN AMERICAN > 90 mL/min (90-120)
[2019-11-20 06:48] LABS: PLATELET COUNT 43 10x3/uL (130-400); WBC 8.1 10x3/uL (4.8-10.8)
[2019-11-20 06:52] LABS: APTT 33.5 SECONDS (22.8-39.4); INR 1.59 (0.85-1.17); PROTIME 18.8 SECONDS (11.6-15.0)
[2019-11-20 07:19] LABS: PLATELET ESTIMATE DECREASED
--- NOTE | 2019-11-20 09:11 | NUR ---
0700 PT RECIEVED ALERT AND ORIENTED, REORIENTED TO SITUATION NEEDED, VSS, DENIES PAIN AND ALL NEEDS, SEE SHIFT ASSESSMENT 0900 AM MEDS TAKEN WITHOUT DIFFICULTY, ASSISTED WITH BREAKFAST TRAY
--- NOTE | 2019-11-20 17:19 | NUR ---
pt repositioned q2 hours and linens changed with pericare for multiple bowel movements throughout day, denies all needs, assisted with meals by tech
--- NOTE | 2019-11-20 19:00 | NUR ---
REPORT RECEIVED INITIAL ASSESSMENT COMPLETE SEE FLOWSHEET. ORIENTED FOLLOWS COMMANDS NO DISTRESS NOTED. CM READING SR WITHOUT ECTOPY ALARMS ON AND AUDIBLE. BED LOW POSITION SIDE RAILS UP TIMES 3 FOR BED MOBILITY AND SAFETY CL IN REACH. REPOSITIONED FOR COMFORT CPOC
--- NOTE | 2019-11-20 20:00 | NUR ---
ANSWERED PTS CALL LIGHT STATES "I NEED TO BE CLEANED UP I HAD ANOTHER BM" COMPLETE CHG BATH LINEN CHANGE
--- NOTE | 2019-11-20 21:53 | NUR ---
PT DROPPED NIGHT TIME MEDS GABAPENTIN AND AMBIEN ON FLOOR WASTED IN PYXIS PULLED AND GIVEN 200 MG GABAPENTIN AND 5MG AMBIEN
--- NOTE | 2019-11-20 23:00 | NUR ---
REASSESSMENT COMPLETE WHEN TALKING WITH PT INFORMED SHE SEEMED TO LOOK AND ACT LIKE SHE FELT BETTER COMPARED TO LAST PM. SHE STATED "I DO FEEL BETTER FINALLY GOT TO REST LAST NIGHT AND SOME TODAY" REPOSITIONED FOR COMFORT AND ASSISTED WITH GETTING A DRINK. VSS AT THIS TIME CPOC
[2019-11-21] VITALS (22 sets, daily range): BP systolic 88–109; BP diastolic 48–71
--- NOTE | 2019-11-21 03:23 | NUR ---
ANSWERED PTS CALL LIGHT PT STATES "XRAY JUST CAME BY AND GOT ME ALL MESSED UP IN BED CAN YOU HELP ME GET COMFORTABLE AND GET SOMETHING FOR PAIN" REPOSITIONED FOR COMFORT PT STRONGER WITH TURNING. MEDICATED WITH ULTRAM PER EMAR
--- NOTE | 2019-11-21 03:40 | NUR ---
RADIOLOGY HERE FOR CHEST X RAY
--- NOTE | 2019-11-21 04:20 | NUR ---
CM ALARMING BRADYCARDIA RATE OF 52. PT ASYMPTOMATIC WHEN ASKED IF SHE HAS ANY HISTORY WITH LOW HEART RATE SHE STATES "YES DR ALVARENGA EVEN THOUGHT FOR AWHILE HE WAS GOING TO HAVE TO PUT IN A PACEMAKER". WILL MONITOR AND PASS ALONG IN REPORT TO ONCOMING SHIFT
[2019-11-21 06:08] LABS: BASOPHILS 0 % (0-2); EOSINOPHILS 1.6 % (0-7); HEMATOCRIT 25.8 % (36.0-48.0); HEMOGLOBIN 8.6 g/dL (12-16); IMMATURE GRANULOCYTES 0.5 % (0-5); LYMPHOCYTES 10.8 % (15-50); MCH 30.5 pg (26.0-34.0); MCHC 33.3 g/dL (31.0-37.0); MCV 91.5 fL (80.0-100.0); MEAN PLATELET VOLUME 12.2 fL (7.4-10.4); MONOCYTES 10.3 % (2-11); NEUTROPHILS 76.8 % (40-80); RBC 2.82 10x6/uL (4.00-5.40)
[2019-11-21 06:09] LABS: WBC 5.6 10x3/uL (4.8-10.8)
[2019-11-21 06:11] LABS: PLATELET COUNT 46 10x3/uL (130-400)
--- NOTE | 2019-11-21 06:15 | NUR ---
PT INCONTINENT SMALL BM COMPLETE CHG AND COMPLETE LINEN CHANGE PT CONSIDERABLY STONGER AND ABLE TO TURN WITH MINIMAL ASSIST. ENCOURAGED TO CONTINUE TO REPOSITION ABLE SHE VERBALIZES GOOD UNDERSTANDING.
[2019-11-21 06:16] LABS: APTT 36.4 SECONDS (22.8-39.4); INR 1.58 (0.85-1.17); PROTIME 18.7 SECONDS (11.6-15.0)
[2019-11-21 06:18] LABS: ALBUMIN 2.2 g/dL (3.4-5.0); ALKALINE PHOSPHATASE 119 U/L (30-120); ALT (SGPT) 59 U/L (10-68); BILIRUBIN - TOTAL 6.57 mg/dL (0.2-1.3); CALC OSMOLALITY 264 mosm/kg (275-300); CALCIUM 7.7 mg/dL (8.5-10.1); CHLORIDE - SERUM 103 mmol/L (98-107); CREATININE - SERUM 0.5 mg/dL (0.6-1.3); GLUCOSE 131 mg/dL (74-106); LDH 114 U/L (81-234); POTASSIUM - SERUM 4.1 mmol/L (3.5-5.1); SODIUM 131 mmol/L (136-145); UREA NITROGEN 13 mg/dL (7-18); eGFR NON AFRICAN AMERICAN > 90 mL/min (90-120)
[2019-11-21 06:24] LABS: D-DIMER-QUANTITATIVE 5.52 ug/mLFEU (0.20-0.54)
--- NOTE | 2019-11-21 08:15 | NUR ---
ASSISTED WITH BED MERIDA, PT HAD BM. MEAL TRAY SET UP. PT FEEDING SELF.
--- NOTE | 2019-11-21 16:06 | NUR ---
PT INC OF STOOL, BATHED AND LINENS CHANGED.
--- NOTE | 2019-11-21 19:00 | NUR ---
BEDSIDE REPORT RECEIVED. PATIENT AWAKE AND FINISHING BREATHING TREATMENT WHILE REPORT BEING GIVEN. PATIENT DENIES PAIN AT THIS TIME. VITAL SIGNS CURRENTLY STABLE AND CONTINUOUS MONITORING IN PLACE. PATIENT CURRENTLY ON THE RIGHT SIDE, WEDGES FOR SUPPORT. CALL LIGHT CLOSE. CPOC
--- NOTE | 2019-11-21 19:30 | NUR ---
ASSESSMEMT COMPLETED. LUNG SOUNDS CLEAR TO AUSCULTATION. ABDOMEN FIRM TO TOUCH AND LARGELY DISTENEDED. ACTIVE BOWEL SOUNDS NOTED. PATIENT HAD SMALL INCONTINENT BM. BED CAHNGE PROVIDED. RANGEL CATHETHER WITH THEA URINE NOTED. RIGHT LOWER EXTREMETY SWELLING NOTED WITH 3+ EDEMA IN THE RIGHT FOOT. REPOSITIONED PATIENT AND ELEVATED RLE. PATIENT HAS GENERALIZED BRUSIING THAT COVERS BILATERAL LOWER EXTREMETIES. DRESSING TO THE RIGHT FOREARM FROM PREVIOUS IV INSERTION. PATIENT ANSWERS QUESTIONS APPRIPRIATELY. DISCUSSED PROCEDURES NOTED. PATIENT DENIESSS QUESTIONS, STATES SHES HAD THIS PROCEDURE BEFORE. DENIES FURTHER NEEDS AT THIS TIME. BED ALARM ON. PINK BOOTIES ON BILATERAL LOWER EXTREMETIES. MEPILEX NOTED TO THE RIGHT HEEL. CALL YUMIKO CLOSE. CPOC.
--- NOTE | 2019-11-21 20:45 | NUR ---
MEDICATIONS ADMINISTERED PER ORDER. PATIENT HAD ANOTHER INCONTINENT BOWEL MOVEMENT. CLEANED AND REPOSITIONED. DENIES FURTHER NEEDS AT THIS TIME. CALL LIGHT CLOSE TO PATIENT. CPOC.
[2019-11-22] VITALS (29 sets, daily range): BP systolic 74–108; BP diastolic 33–60
--- NOTE | 2019-11-22 00:30 | NUR ---
PAITENT SLEEPING WITH NO DISTRESS NOTED. CALL LIGHT WITHIN REACH, BED IN LOW POSITION.
--- NOTE | 2019-11-22 03:00 | NUR ---
REASSESSMENT COMPLETE. CALL LIGHT WITHIN REACH, BED IN LOW POSITION.
[2019-11-22 05:46] LABS: APTT 33.2 SECONDS (22.8-39.4); INR 1.52 (0.85-1.17); PROTIME 18.2 SECONDS (11.6-15.0)
[2019-11-22 06:11] LABS: ALBUMIN 2.2 g/dL (3.4-5.0); ALKALINE PHOSPHATASE 159 U/L (30-120); ALT (SGPT) 67 U/L (10-68); BILIRUBIN - TOTAL 8.54 mg/dL (0.2-1.3); CALC OSMOLALITY 264 mosm/kg (275-300); CALCIUM 7.8 mg/dL (8.5-10.1); CARBON DIOXIDE 16.6 mmol/L (21.0-32.0); CHLORIDE - SERUM 103 mmol/L (98-107); CREATININE - SERUM 0.5 mg/dL (0.6-1.3); GLUCOSE 159 mg/dL (74-106); MAGNESIUM - SERUM 1.8 mg/dL (1.8-2.4); PHOSPHOROUS 1.9 mg/dL (2.5-4.9); PROTEIN - SERUM 5.1 g/dL (6.4-8.2); SODIUM 130 mmol/L (136-145); UREA NITROGEN 14 mg/dL (7-18); eGFR NON AFRICAN AMERICAN > 90 mL/min (90-120)
[2019-11-22 07:09] LABS: BASOPHILS 0 % (0-2); EOSINOPHILS 0.3 % (0-7); HEMATOCRIT 27.7 % (36.0-48.0); HEMOGLOBIN 9.4 g/dL (12-16); IMMATURE GRANULOCYTES 0.4 % (0-5); LYMPHOCYTES 4.5 % (15-50); MCH 31.2 pg (26.0-34.0); MCHC 33.9 g/dL (31.0-37.0); MEAN PLATELET VOLUME 11.4 fL (7.4-10.4); MONOCYTES 5.4 % (2-11); NEUTROPHILS 89.4 % (40-80); PLATELET COUNT 50 10x3/uL (130-400); RBC 3.01 10x6/uL (4.00-5.40)
[2019-11-22 07:10] LABS: WBC 10.9 10x3/uL (4.8-10.8)
[2019-11-22 07:44] LABS: PLATELET ESTIMATE DECREASED
--- NOTE | 2019-11-22 08:04 | NUR ---
Nutrition follow-up: PT NPO today for paracentesis. PO intake of full liquid diet 100% of all meals Labs reviewed Wt: 157# Off pressors at this time +BM RDN following.
--- NOTE | 2019-11-22 08:20 | NUR ---
PT BEING WHEELED OUT OF UNIT IN BED. GOING TO CT FOR PARACENTESIS. WILL CONTINUE TO MONITOR
--- NOTE | 2019-11-22 09:50 | NUR ---
RECEIVED REPORT ON PT. DRAINED 10.8 LITERS OFF. WILL CONTINUE TO MONITOR
--- NOTE | 2019-11-22 10:54 | NUR ---
Pt was admitted with a deep tissue injury on her right heel. It measures 3cm x 3cm. She states it was hurting while she was home, but didn't realize it had a blister. Currently heel is being covered with mepilex, a heel protector and is being bridged. Wound care will continue monitoring.
--- NOTE | 2019-11-22 19:00 | NUR ---
SUPINE IN BED, A&O X 4. CVP ZEROED OUT BY MATT MYERS. PT REQUESTS ATIVAN AND DIET COKE AND SNACK. NO FURTHER NEEDS AT THIS TIME. STATES SHE DOESN'T TAKE CHRONULAC AT NIGHT. WILL CONTINUE TO MONITOR.
--- NOTE | 2019-11-22 21:38 | NUR ---
SUPINE IN BED, EYES CLOSED, RESPIRATIONS EVEN/NON LABORED, WILL CONTINUE TO MONITOR.
--- NOTE | 2019-11-22 22:44 | NUR ---
SUPINE IN BED, VS STABLE, NO S/SX OF DISTRESS, WILL CONTINUE TO MONITOR.
[2019-11-23] VITALS (11 sets, daily range): BP systolic 83–113; BP diastolic 41–65
--- NOTE | 2019-11-23 00:58 | NUR ---
A&O X 4. TURNED TO LEFT SIDE. HEEL BOOTS REMOVED, BILAT LOWER EXTREMETIES BRIDGED. NO FURTHER NEEDS AT THIS TIME, WILL CONTINUE TO MONITOR.
--- NOTE | 2019-11-23 03:00 | NUR ---
A&O X 4. PT PLACED ON BEDPAN PER REQUEST, SMALL LOOSE BM. NO FURTHER NEEDS AT THIS TIME, CTM.
[2019-11-23 04:49] LABS: ALBUMIN 2.6 g/dL (3.4-5.0); ALKALINE PHOSPHATASE 96 U/L (30-120); BASOPHILS 0 % (0-2); CALC OSMOLALITY 262 mosm/kg (275-300); CALCIUM 7.5 mg/dL (8.5-10.1); CARBON DIOXIDE 18.8 mmol/L (21.0-32.0); CHLORIDE - SERUM 101 mmol/L (98-107); CREATININE - SERUM 0.4 mg/dL (0.6-1.3); EOSINOPHILS 0.4 % (0-7); GLUCOSE 151 mg/dL (74-106); HEMATOCRIT 23.5 % (36.0-48.0); IMMATURE GRANULOCYTES 0.2 % (0-5); LYMPHOCYTES 6.5 % (15-50); MCH 31.6 pg (26.0-34.0); MCV 92.9 fL (80.0-100.0); MEAN PLATELET VOLUME 11.5 fL (7.4-10.4); MONOCYTES 7.3 % (2-11); NEUTROPHILS 85.6 % (40-80); POTASSIUM - SERUM 3.4 mmol/L (3.5-5.1); PROTEIN - SERUM 4.6 g/dL (6.4-8.2); RBC 2.53 10x6/uL (4.00-5.40); RDW 16.6 % (11.5-14.5); SODIUM 130 mmol/L (136-145); UREA NITROGEN 11 mg/dL (7-18); eGFR NON AFRICAN AMERICAN > 90 mL/min (90-120)
[2019-11-23 04:55] LABS: WBC 5.7 10x3/uL (4.8-10.8)
[2019-11-23 04:56] LABS: PLATELET COUNT 44 10x3/uL (130-400)
[2019-11-23 04:57] LABS: ALT (SGPT) 33 U/L (10-68)
--- NOTE | 2019-11-23 05:00 | NUR ---
SPONTANEOUS EYE OPENING UPON VERBAL STIMULATION. ORIENTED X 4. DENIES PAIN. CHG BATH PERFORMED. TOLERATED WELL. VS STABLE. NO S/SX OF DISTRESS, CONTINUE PLAN OF CARE.
--- NOTE | 2019-11-23 05:30 | NUR ---
I have reviewed this patient and I concur with the Shift Assessment completed by the Licensed Practical Nurse today this shift.
--- NOTE | 2019-11-23 07:00 | NUR ---
PT REPORT RECEIVED FROM ACCOUNT OFFICER NURSE. NO ACUTE SIGNS OF DISTRESS NOTED. SHIFT ASSESSMENT COMPLETED. WILL CONTINUE TO MONITOR
--- NOTE | 2019-11-23 08:39 | NUR ---
DR DAVALOS IN ROOM. UPDATE GIVEN. STATED IF PT STAYS TACHYCARDIC THROUGHOUT THE DAY TRANSFUSE TWO UNITS PRBC. ALSO STATED TO HOLD LOVENOX TODAY. WILL CONTINUE TO MONITOR
--- NOTE | 2019-11-23 09:00 | NUR ---
DR MURPHY IN ROOM. UPDATE GIVEN. OKAY WITH TRANSFER FROM HIS STANDPOINT.
--- NOTE | 2019-11-23 10:23 | NUR ---
CALLED REPORT TO GILBERT ON MED SURG. PREPARING TO TRANSFER PT OVER.
--- NOTE | 2019-11-23 10:52 | NUR ---
RECEIVED TO ROOM 2208 VIA BED FROM ICU. ALERT AND ORIENTED X3. DRESSING TO RIGHT HEEL IS DRY AND INTACT. 3CM BLISTER NOTED TO SAME. WILL MONITOR. RANGEL PATENT WITH DARK TEA COLORED URINE. SUBCLAVIAN TO LEFT IS PATENT. DENIES NEEDS.
--- NOTE | 2019-11-23 13:40 | NUR ---
ATE ABOUT 25% OF LUNCH. REQUESTED AND GIVEN 0.5 MG ATIVAN PO FOR C/O ANXIETY. WILL MONITOR
--- NOTE | 2019-11-23 19:01 | NUR ---
INCONTINENT OF LOOSE WATERY DARK STOOL. SKIN CARE AND LINENS CHAGED. NO CHANGES NOTED.
--- NOTE | 2019-11-23 19:34 | MORECARE ---
CASE MANAGEMENT DISCHARGE SUMMARY PATIENT: RASHEED BOYD UNIT: [id number] ADM DATE: 11/18/19 AGE: 64 : 56 SEX: F ROOM/BED: D.2208 AUTHOR: BENITA LEAVITT PHYSICIAN: REFERRING PHYSICIAN: MARQUEZ GAUTAM MD DATE OF SERVICE: 11/23/19 Discharge Plan Patient Name: RASHEED BOYD [facility] [facility] 1955 Planned Disposition: Home Anticipated Discharge Date: Discharge Date: Expected LOS: Initial Reviewer: [email or web address] Initial Review Date: 11/23/2019 Generated: 11/23/19 8:34 pm DCPIA - Discharge Planning Initial Assessment Updated by [email or web address]: Deyanira Aldrich on 11/23/19 7:31 pm * Is the patient Alert and Oriented? Yes * How many steps to enter\exit or inside your home? 3-5 * PCP DAIN * Pharmacy [facility] * Preadmission Environment Home with Family * ADLs Independent * Other Equipment WALKER, CANE, W/C, SC * List name and contact numbers for known caregivers / representatives who currently or will assist patient after discharge: SHERICE BOYD - SPOUSE - [phone] * Additional services required to return to the preadmission environment? No * Can the patient safely return to the preadmission environment? Yes * Has this patient been hospitalized within the prior 30 days at any hospital? No Patient Name: RASHEED BOYD Page [id number] at 1934 All edits/amendments must be made on the electronic document DICTATION DATE: 11/23/191933 MERCURY CELL CLEANER: ABDULLAHI 11/23/191933 RPT#: [id number] DC DATE: STATUS: ADM IN [facility] [address] [place] [address] END OF REPORT
--- NOTE | 2019-11-23 19:41 | MORECARE ---
CASE MANAGEMENT DISCHARGE SUMMARY PATIENT: RASHEED BOYD UNIT: [id number] ADM DATE: 11/18/19 AGE: 64 : 56 SEX: F ROOM/BED: D.2205 AUTHOR: BENITA LEAVITT PHYSICIAN: REFERRING PHYSICIAN: MARQUEZ GAUTAM MD DATE OF SERVICE: 11/23/19 Discharge Plan Patient Name: RASHEED BOYD Facility: [facility]:[place] : 1955 Planned Disposition: Home Anticipated Discharge Date: Discharge Date: Expected LOS: Initial Reviewer: [email or web address] Initial Review Date: 11/23/2019 Generated: 11/23/19 8:40 pm Comments DCP- Discharge Planning Updated by [email or web address]: Deyanira Aldrich on 11/23/19 6:[address] Patient Name: RASHEED BOYD Admission Status: ER Accout number: [id number] Admission Date: 11-18-2019 : 1955 Admission Diagnosis:FEVER, UNSPECIFIED Attending: MARQUEZ GAUTAM Current LOS: 5 Anticipated DC Date: Planned Disposition: Home Primary Insurance: [place]ICAID [place] Discharge Planning Comments: CM met with patient to complete initial dc planning assessment. CM educated patient on the CM role and verbal consent given by patient to complete assessment. Patient lives at home with her spouse where she is independent with her care. At discharge patient plans to return home and feels this is a safe discharge. Patient stated that her has been speaking with [employer] to get her some assistance at home. JACQUELIN signed. Her will drive her home. Patient denied known discharge needs at this time. CM will continue to follow and will assist as needed with dc plans/needs. Utility Worker Film Processing: Deyanira Aldrich DCPIA - Discharge Planning Initial Assessment Updated by [email or web address]: Deyanira Aldrich on 11/23/19 7:31 pm * Is the patient Alert and Oriented? Yes * How many steps to enter\exit or inside your home? 3-5 * PCP DAIN * Pharmacy [facility] * Preadmission Environment Home with Family * ADLs Independent * Other Equipment WALKER, CANE, W/C, SC * List name and contact numbers for known caregivers / representatives who currently or will assist patient after discharge: SHERICE BOYD - SPOUSE - [phone] * Additional services required to return to the preadmission environment? No * Can the patient safely return to the preadmission environment? Yes * Has this patient been hospitalized within the prior 30 days at any hospital? No Last DP export: 11/23/19 6:34 p Patient Name: RASHEED BOYD Page [phone] at 1941 All edits/amendments must be made on the electronic document DICTATION DATE: 11/23/191939 DRIER AND PULVERIZER TENDER: ABDULLAHI 11/23/191939 RPT#: [id number] DC DATE: STATUS: ADM IN [facility] [address] [place] [address] END OF REPORT
[2019-11-24 00:50] VITALS: BP 89/42
--- NOTE | 2019-11-24 05:00 | NUR ---
I have reviewed this patient and I concur with the Shift Assessment completed by the Licensed Practical Nurse today this shift.
[2019-11-24 06:55] VITALS: BP 104/58
--- NOTE | 2019-11-24 08:07 | NUR ---
PT RESTING IN BED. AWAKE AND ALERT. RESP EVEN AND UNLABORED. PT VOICES HAVING HAD AN INCONTINENT BM. ALEJANDRA CARE PROVIDED AT THIS TIME FOR A LARGE LOOSE BM. PT MARISELA WELL. LEFT SCVL WITH NS @ 50ML/HR INFUSING VIA PUMP. SITE WITHOUT REDNESS OR EDEMA. GENERALIZED BRUISING NOTED. F/C PATENT TO GRAVITY DRAINING THEA URINE. PT VOICES WISHES FOR ATIVAN WITH AM MEDS. DENIES FURTHER NEEDS AT THIS TIME. CL WITHIN REACH. ENCOURAGED TO CALL WITH NEEDS. CONTINUE POC
[2019-11-24 09:21] VITALS: BP 104/51
--- NOTE | 2019-11-24 09:26 | NUR ---
PT RESTING IN BED. MORNING MEDICATIONS ADMINISTERED AT THIS TIME. PT REQUEST ATIVAN PER MD ORDERS. ATIVAN ADMINISTERED PER MD ORDERS AT THIS TIME. DENIES FURTHER NEEDS A THIS TIME. CL WITHIN REACH. ENCOURAGED TO CALL WITH NEEDS.
--- NOTE | 2019-11-24 11:15 | NUR ---
PT RESTING IN BED ON RIGHT SIDE WITH EYES CLOSED. RESP EVEN AND UNLABORED. PT DENIES NEEDS AT THIS TIME. CL WITHIN REACH. ENCOURAGED TO CALL WITH NEEDS.
--- NOTE | 2019-11-24 13:09 | NUR ---
Nutrition follow-up: Pt just out of ICU Diet advanced to consistent CHO with po intake 100% of most meals. Pt on phone when RDN visited; will attempt visit later. Labs reviewed Wt: 157# PO intake good at this time RDN following.
--- NOTE | 2019-11-24 13:20 | NUR ---
PT RESTING IN BED. INCONTINENT CARE PROVIDED. MEDIUM LOOSE BM NOTED AT THIS TIME. DENIES FURTHER NEEDS AT THIS TIME. CL WITHIN REACH. ENCOURAGED TO CALL WITH NEEDS.
[2019-11-24 13:45] VITALS: BP 99/50
--- NOTE | 2019-11-24 15:11 | NUR ---
SPOKE WITH DR. ARSHAD ENGINE BOSS FOR DR. GAUTAM REGARDING TEMP OF 101.7. NEW ORDERS NOTED AT THIS TIME.
--- NOTE | 2019-11-24 15:44 | NUR ---
UA OBTAINED VIA F/C AND TAKEN TO LAB
[2019-11-24 16:37] LABS: BILIRUBIN NEGATIVE (NEGATIVE); GLUCOSE NEGATIVE (NEGATIVE); KETONE NEGATIVE (NEGATIVE); NITRITE NEGATIVE (NEGATIVE); SPECIFIC GRAVITY 1.015 (1.005-1.020); UROBILINOGEN NORMAL (NORMAL)
[2019-11-24 16:39] LABS: BACTERIA FEW /hpf (NEGATIVE); EPITHELIAL CELLS OCC /hpf (0-5); RED CELLS - URINE 0-5 /hpf (0-5); WHITE CELLS - URINE 0-5 /hpf (NEGATIVE); YEAST >1+ /hpf (NONE SEEN)
[2019-11-24 17:06] VITALS: BP 151/77
[2019-11-24 20:00] VITALS: BP 110/58
--- NOTE | 2019-11-24 20:10 | NUR ---
LYING SUPINE IN BED. ALERT AND ORIENTED X4. RESP EVEN AND NONLABORED. PITTING EDEMA NOTED TO BLE. EGG CRATE HEEL PROTECTORS IN USE. ASCITES NOTED. TEGADERM NOTED RT HEEL. BRUISES NOTED TO BUE. SKIN IS JAUNDICED. RANGEL CATH PATENT AND DRAINING THEA URINE. NS @ 50 MLHR INFUSING IN LT TLSC. SR ELEVATED X2. CL IN REACH.
[2019-11-25] VITALS: BP 90/45
--- NOTE | 2019-11-25 00:30 | NUR ---
ICE PACKS PLACED ON BILAT GROIN DUE TO ELEVATED TEMP. AIR TURNED ON IN ROOM
--- NOTE | 2019-11-25 01:45 | NUR ---
BED BATH AND COMPLETE LINEN CHANGE PERFORMED AT THIS TIME.
[2019-11-25 04:00] VITALS: BP 91/41
[2019-11-25 04:29] LABS: BASOPHILS 0.2 % (0-2); EOSINOPHILS 1.3 % (0-7); HEMATOCRIT 23.1 % (36.0-48.0); HEMOGLOBIN 7.9 g/dL (12-16); IMMATURE GRANULOCYTES 0.2 % (0-5); LYMPHOCYTES 8.8 % (15-50); MCH 31.7 pg (26.0-34.0); MCHC 34.2 g/dL (31.0-37.0); MCV 92.8 fL (80.0-100.0); MEAN PLATELET VOLUME 10.3 fL (7.4-10.4); MONOCYTES 9.1 % (2-11); NEUTROPHILS 80.4 % (40-80); PLATELET COUNT 50 10x3/uL (130-400); RBC 2.49 10x6/uL (4.00-5.40); RDW 18.5 % (11.5-14.5); WBC 5.5 10x3/uL (4.8-10.8)
[2019-11-25 04:50] LABS: PLATELET ESTIMATE DECREASED
[2019-11-25 04:53] LABS: ALBUMIN 2.7 g/dL (3.4-5.0); ALKALINE PHOSPHATASE 114 U/L (30-120); ALT (SGPT) 36 U/L (10-68); BILIRUBIN - TOTAL 7.38 mg/dL (0.2-1.3); CALC OSMOLALITY 261 mosm/kg (275-300); CALCIUM 7.3 mg/dL (8.5-10.1); CARBON DIOXIDE 20.5 mmol/L (21.0-32.0); CHLORIDE - SERUM 99 mmol/L (98-107); CREATININE - SERUM 0.4 mg/dL (0.6-1.3); GLUCOSE 129 mg/dL (74-106); PROTEIN - SERUM 4.8 g/dL (6.4-8.2); SODIUM 130 mmol/L (136-145); UREA NITROGEN 10 mg/dL (7-18); eGFR NON AFRICAN AMERICAN > 90 mL/min (90-120)
--- NOTE | 2019-11-25 07:31 | NUR ---
PT RESTING QUIETLY IN BED WITH EYES CLOSED. AROUSES STAFF ENTERS ROOM. RESP EVEN AND UNLABORED AT THIS TIME. LEFT SUBCLAVIAN INTACT WITH NS @ 50ML/HR INFUSING VIA PUMP. SITE WITHOUT REDNESS OR EDEMA. ABDOMEN REMAINS DISTENDED. JAUNDICE NOTED. F/C PATENT TO GRAVITY, DRAINING THEA URINE. DENIES PAIN OR DISCOMFORT AT THIS TIME. DENIES FURTHER NEEDS. CL WITHIN REACH. ENCOURAGED TO CALL WITH NEEDS. CONTINUE POC
[2019-11-25 08:02] VITALS: BP 113/60
--- NOTE | 2019-11-25 11:25 | NUR ---
SPOKE WITH DR. DAVALOS REGARDING PT TEMP OF 102 AND ORDERS FOR [address] DAVALOS REQUESTED BLOOD TO BE HELD FOR TODAY AND ORDERS FOR IBUPROFEN 200MG Q8HPRN TO BE ADMINISTERED FOR ELEVATED TEMP. IBUPROFEN TO BE ADMINISTERED. ICE PACKS PLACED TO GROIN AREA TO HELP WITH LOWERING TEMP.
[2019-11-25 12:06] VITALS: BP 124/61
[2019-11-25 16:46] VITALS: BP 110/40
[2019-11-25 20:00] VITALS: BP 109/61
[2019-11-26] VITALS (7 sets, daily range): BP systolic 83–104; BP diastolic 41–55
[2019-11-26 04:40] LABS: ALBUMIN 2.7 g/dL (3.4-5.0); ALKALINE PHOSPHATASE 109 U/L (30-120); ALT (SGPT) 31 U/L (10-68); BILIRUBIN - TOTAL 6.73 mg/dL (0.2-1.3); CALC OSMOLALITY 256 mosm/kg (275-300); CALCIUM 7.2 mg/dL (8.5-10.1); CHLORIDE - SERUM 98 mmol/L (98-107); CREATININE - SERUM 0.4 mg/dL (0.6-1.3); GLUCOSE 113 mg/dL (74-106); POTASSIUM - SERUM 3.4 mmol/L (3.5-5.1); PROTEIN - SERUM 4.7 g/dL (6.4-8.2); SODIUM 128 mmol/L (136-145); UREA NITROGEN 10 mg/dL (7-18); eGFR NON AFRICAN AMERICAN > 90 mL/min (90-120)
[2019-11-26 04:50] LABS: HEMATOCRIT 21.3 % (36.0-48.0); LYMPHOCYTES 8.4 % (15-50); MCH 32.1 pg (26.0-34.0); MCHC 33.8 g/dL (31.0-37.0); NEUTROPHILS 83.2 % (40-80); RBC 2.24 10x6/uL (4.00-5.40); RDW 20.3 % (11.5-14.5); WBC 5.8 10x3/uL (4.8-10.8)
[2019-11-26 04:51] LABS: MCV 95.1 fL (80.0-100.0)
[2019-11-26 04:53] LABS: HEMOGLOBIN 7.2 g/dL (12-16); PLATELET COUNT 43 10x3/uL (130-400)
--- NOTE | 2019-11-26 13:23 | NUR ---
#1 UNIT PRBC INITIATED AT THIS TIME PER MD ORDERS
--- NOTE | 2019-11-26 17:10 | NUR ---
2ND UNIT PRBC INITIATED AT THIS TIME
[2019-11-27] VITALS (7 sets, daily range): BP systolic 88–147; BP diastolic 42–84
[2019-11-27 05:50] LABS: BASOPHILS 0.3 % (0-2); EOSINOPHILS 1.6 % (0-7); IMMATURE GRANULOCYTES 0.3 % (0-5); LYMPHOCYTES 13.5 % (15-50); MCH 30.7 pg (26.0-34.0); MCHC 33.3 g/dL (31.0-37.0); MEAN PLATELET VOLUME 10.9 fL (7.4-10.4); MONOCYTES 11.1 % (2-11); NEUTROPHILS 73.2 % (40-80); RDW 18.3 % (11.5-14.5); WBC 6.2 10x3/uL (4.8-10.8)
[2019-11-27 05:52] LABS: HEMATOCRIT 26.4 % (36.0-48.0); HEMOGLOBIN 8.8 g/dL (12-16); PLATELET COUNT 56 10x3/uL (130-400); RBC 2.87 10x6/uL (4.00-5.40)
[2019-11-27 06:07] LABS: ALBUMIN 2.8 g/dL (3.4-5.0); ALKALINE PHOSPHATASE 115 U/L (30-120); ALT (SGPT) 26 U/L (10-68); BILIRUBIN - TOTAL 7.27 mg/dL (0.2-1.3); CALC OSMOLALITY 251 mosm/kg (275-300); CALCIUM 7.6 mg/dL (8.5-10.1); CARBON DIOXIDE 18.7 mmol/L (21.0-32.0); CHLORIDE - SERUM 97 mmol/L (98-107); CREATININE - SERUM 0.4 mg/dL (0.6-1.3); GLUCOSE 110 mg/dL (74-106); POTASSIUM - SERUM 3.9 mmol/L (3.5-5.1); PROTEIN - SERUM 4.8 g/dL (6.4-8.2); SODIUM 125 mmol/L (136-145); UREA NITROGEN 9 mg/dL (7-18); eGFR NON AFRICAN AMERICAN > 90 mL/min (90-120)
--- NOTE | 2019-11-27 07:46 | NUR ---
RESTING IN BED, NO DISTRESS NOTED, IV INFUSING, CONT TO MONITOR PAIN AND SUGARS
[2019-11-28] VITALS: BP 99/48
[2019-11-28 04:00] VITALS: BP 100/53
--- NOTE | 2019-11-28 05:30 | NUR ---
LISETTE BLOOD FROM CENTRAL LINE FOR LABS. PT C/O PAIN 01/11. GAVE 1 TAB ULTRAM 50 MG PO. FSBS 163 - GAVE 4 UNITS INSULIN. NO OTHER NEEDS. WILL REASSESS AND CONTINUE TO MONITOR.
[2019-11-28 06:18] LABS: BASOPHILS 0.4 % (0-2); EOSINOPHILS 1.6 % (0-7); HEMATOCRIT 27.7 % (36.0-48.0); HEMOGLOBIN 9.2 g/dL (12-16); IMMATURE GRANULOCYTES 0.2 % (0-5); LYMPHOCYTES 14.1 % (15-50); MCHC 33.2 g/dL (31.0-37.0); MCV 93.3 fL (80.0-100.0); MEAN PLATELET VOLUME 11.7 fL (7.4-10.4); MONOCYTES 9.8 % (2-11); NEUTROPHILS 73.9 % (40-80); RBC 2.97 10x6/uL (4.00-5.40); RDW 18.7 % (11.5-14.5); WBC 4.9 10x3/uL (4.8-10.8)
[2019-11-28 06:24] LABS: ALBUMIN 2.9 g/dL (3.4-5.0); ALKALINE PHOSPHATASE 125 U/L (30-120); ALT (SGPT) 22 U/L (10-68); BILIRUBIN - TOTAL 6.74 mg/dL (0.2-1.3); CALC OSMOLALITY 254 mosm/kg (275-300); CALCIUM 7.7 mg/dL (8.5-10.1); CARBON DIOXIDE 22.9 mmol/L (21.0-32.0); CHLORIDE - SERUM 99 mmol/L (98-107); CREATININE - SERUM 0.5 mg/dL (0.6-1.3); GLUCOSE 136 mg/dL (74-106); POTASSIUM - SERUM 4.1 mmol/L (3.5-5.1); PROTEIN - SERUM 5.1 g/dL (6.4-8.2); SODIUM 127 mmol/L (136-145); UREA NITROGEN 8 mg/dL (7-18); eGFR NON AFRICAN AMERICAN > 90 mL/min (90-120)
[2019-11-28 06:29] LABS: PLATELET COUNT 70 10x3/uL (130-400)
[2019-11-28 06:50] LABS: PLATELET ESTIMATE DECREASED
--- NOTE | 2019-11-28 08:00 | NUR ---
ASSESSMENT PER FLOW SHEET. PATIENT WITHOUT DISTRESS.FALL PREVENTION IN PLACE WITH BRANDI. DOOR OPEN
[2019-11-28 09:50] VITALS: BP 99/56
[2019-11-28 13:40] VITALS: BP 95/52
[2019-11-28 16:00] VITALS: BP 107/56
--- NOTE | 2019-11-28 19:33 | NUR ---
PATIENT RESTING IN BED WITH NO S/S OF DISTRESS. PATIENT DENIES NEEDS AT THIS TIME. BED IN LOWEST POSITION AND CALL LIGHT WITHIN REACH. ENCOURAGED THE PATIENT TO CALL IF SHE HAS NEEDS. WILL CONTINUE TO MONITOR.
[2019-11-28 20:00] VITALS: BP 99/56
--- NOTE | 2019-11-28 20:51 | NUR ---
PATIENT REFUSED LACTULOSE. I EXPLAINED TO THE PATIENT THE PURPOSE OF LACTULOSE. THE PATIENT RESPONDED, "I'M NOT TAKING IT. I ONLY TAKE IT ONCE A DAY AND I WILL TALK TO DR. GAUTAM ABOUT IT TOMORROW."
[2019-11-29 04:00] VITALS: BP 102/52
[2019-11-29 04:36] LABS: BASOPHILS 0.4 % (0-2); EOSINOPHILS 0.8 % (0-7); HEMATOCRIT 25.3 % (36.0-48.0); HEMOGLOBIN 8.3 g/dL (12-16); IMMATURE GRANULOCYTES 0.4 % (0-5); LYMPHOCYTES 18.4 % (15-50); MCH 30.6 pg (26.0-34.0); MCHC 32.8 g/dL (31.0-37.0); MCV 93.4 fL (80.0-100.0); MEAN PLATELET VOLUME 10.9 fL (7.4-10.4); MONOCYTES 12.2 % (2-11); NEUTROPHILS 67.8 % (40-80); PLATELET COUNT 67 10x3/uL (130-400); RBC 2.71 10x6/uL (4.00-5.40); RDW 19.1 % (11.5-14.5); WBC 4.9 10x3/uL (4.8-10.8)
[2019-11-29 04:52] LABS: INR 2.04 (0.85-1.17); PROTIME 22.7 SECONDS (11.6-15.0)
[2019-11-29 04:56] LABS: ALBUMIN 2.6 g/dL (3.4-5.0); ALKALINE PHOSPHATASE 102 U/L (30-120); BILIRUBIN - TOTAL 6.64 mg/dL (0.2-1.3); CALC OSMOLALITY 257 mosm/kg (275-300); CALCIUM 7.3 mg/dL (8.5-10.1); CARBON DIOXIDE 20.3 mmol/L (21.0-32.0); CHLORIDE - SERUM 100 mmol/L (98-107); CREATININE - SERUM 0.5 mg/dL (0.6-1.3); GLUCOSE 110 mg/dL (74-106); POTASSIUM - SERUM 3.7 mmol/L (3.5-5.1); PROTEIN - SERUM 4.4 g/dL (6.4-8.2); SODIUM 129 mmol/L (136-145); UREA NITROGEN 8 mg/dL (7-18); eGFR NON AFRICAN AMERICAN > 90 mL/min (90-120)
[2019-11-29 04:57] LABS: ALT (SGPT) 14 U/L (10-68)
--- NOTE | 2019-11-29 06:39 | NUR ---
PAGED DR. HARO, CARGO CHECKER FOR DR. GAUTAM, IN REGARDS TO PATIENT'S AMMONIA LEVEL
--- NOTE | 2019-11-29 06:45 | NUR ---
SPOKE WITH DR. HARO IN REGARDS TO PATIENT'S AMMONIA LEVEL
[2019-11-29 09:05] VITALS: BP 91/45
--- NOTE | 2019-11-29 09:31 | NUR ---
PT ALERT X 4. BREATH SOUNDS DIMINISHED TO LOWER LOBES. CENTRAL LINE TO LEFT SUBCLAVIAN, PATENT, DRESSING CDI. ABDOMEN DISTENDED AND FIRM. +3 PITTING EDEMA TO BILAT LOWER EXTREMITIES. PT REPORTING PAIN OF 9/10, WILL MONITOR. BED LOW, CALL LIGHT IN REACH. NO OTHER NEEDS AT THIS TIME.
[2019-11-29 12:54] VITALS: BP 103/56
--- NOTE | 2019-11-29 13:59 | NUR ---
Nutrition follow-up: Visited with pt during breakfast. Pt did not eat the pancakes; stated she does not like pancakes even though she ordered them. Pt requested yogurt and RDN provided. PO intake ~50% of meals Labs reviewed; NH3 elevated Pt with worsening edema to bernard LE (3+ pitting) Lasix restarted Wt: 157# Will continue to provide food choices and honor food preferences within diet restrictions. RDN following.
--- NOTE | 2019-11-29 15:23 | NUR ---
RIGHT HEEL DTI APPEARS TO BE HEALING (DRYING UP). LEFT HEEL IS BLANCHABLE. HEEL PROTECTORS ARE IN PLACE AND HEELS ARE FLOATED. WOUND CARE CONTINUES TO MONITOR.
--- NOTE | 2019-11-29 15:36 | NUR ---
LEFT SUBCLAVIAN CENTRAL LINE DC'D, TIP INTACT. PRESSURE DRESSING APPLIED. PT LAYING FLAT FOR 15 MINUTES. PT TOLERATED WELL.
--- NOTE | 2019-11-29 15:38 | NUR ---
PT ALERT X 4. BREATH SOUNDS CLEAR BILAT. IV TO LEFT HAND, PATENT, DRESSING CDI. ABDOMEN DISTENDED AND FIRM. RANGEL IN PLACE, URINE DARK. PT JAUNDICE. REPORTING PAIN OF 5/10, WILL CONTINUE TO MONITOR. BED LOW, CALL LIGHT IN REACH. NO OTHER NEEDS AT THIS TIME.
[2019-11-29 16:36] VITALS: BP 102/60
[2019-11-29 20:34] VITALS: BP 87/43
[2019-11-30] VITALS (7 sets, daily range): BP systolic 85–132; BP diastolic 46–81
--- NOTE | 2019-11-30 02:18 | NUR ---
patient in bed with IV ti left hand with NS at 10 ml/hr. Folly cahth in place and paten with dark urine to bag. Alert and orented able to voice needs and wants to staff, edema noted to BLE. up with P.T. O2 at 3l/min via n/c. bed low call light and water in reach. checked often for needs and safety,
--- NOTE | 2019-11-30 04:00 | NUR ---
THIS DRAPERY SUPERVISOR HAS NOW ASSUMED CARE OF THIS PT. PT LYING IN BED. ALERT AND ORIENTED X4. WATCHING TV. RESP NONLABORED. O2 IN USE. DENIES PAIN. EMPTIED 1800 ML OF DARK THEA URINE FROM RANGEL. DENIES NEEDS. CL IN REACH. NO DISTRESS.
[2019-11-30 05:29] LABS: BASOPHILS 0.2 % (0-2); EOSINOPHILS 1.4 % (0-7); HEMATOCRIT 25.8 % (36.0-48.0); HEMOGLOBIN 8.6 g/dL (12-16); IMMATURE GRANULOCYTES 0.2 % (0-5); LYMPHOCYTES 23.8 % (15-50); MCH 31.2 pg (26.0-34.0); MCHC 33.3 g/dL (31.0-37.0); MCV 93.5 fL (80.0-100.0); MEAN PLATELET VOLUME 11.8 fL (7.4-10.4); MONOCYTES 16.4 % (2-11); PLATELET COUNT 75 10x3/uL (130-400); RBC 2.76 10x6/uL (4.00-5.40); RDW 19.7 % (11.5-14.5); WBC 4.2 10x3/uL (4.8-10.8)
[2019-11-30 05:49] LABS: INR 1.88 (0.85-1.17); PROTIME 21.3 SECONDS (11.6-15.0)
--- NOTE | 2019-11-30 06:02 | NUR ---
PT WAS ASSISTED ONTO BEDPAN AND HAD LARGE SOFT BM.
[2019-11-30 06:06] LABS: ALBUMIN 3.1 g/dL (3.4-5.0); ALKALINE PHOSPHATASE 99 U/L (30-120); BILIRUBIN - TOTAL 6.96 mg/dL (0.2-1.3); CALC OSMOLALITY 263 mosm/kg (275-300); CALCIUM 7.8 mg/dL (8.5-10.1); CARBON DIOXIDE 21.3 mmol/L (21.0-32.0); CHLORIDE - SERUM 99 mmol/L (98-107); CREATININE - SERUM 0.5 mg/dL (0.6-1.3); GLUCOSE 127 mg/dL (74-106); POTASSIUM - SERUM 3.4 mmol/L (3.5-5.1); SODIUM 131 mmol/L (136-145); UREA NITROGEN 9 mg/dL (7-18); eGFR NON AFRICAN AMERICAN > 90 mL/min (90-120)
[2019-11-30 06:07] LABS: ALT (SGPT) 20 U/L (10-68)
--- NOTE | 2019-11-30 07:18 | NUR ---
ALERT AND ORIENTED. LUNGS DIMINISHED BILATERALLY. HEART SOUNDS S1 AND S2 HEARD IN ALL H[place]ON. BOWEL SOUNDS ACTIVE X 4. ABD DISTENDED. SKIN JAUNDICED. BUTTOCKS RED BUT BLANCHABLE. BLACK SPOT TO RIGHT HEEL. HEEL PROTECTORS IN PLACE. O2 IN PLACE AT 3L. IV TO LEFT HAND PATENT WITHOUT REDNESS. DENIES NEEDS. BED LOW. CALL JOHNSON AND PERSONAL ITEMS IN REACH. WILL CONTINUE TO MONITOR.
[2019-11-30 08:35] LABS: PLATELET ESTIMATE DECREASED
--- NOTE | 2019-11-30 12:20 | NUR ---
PATIENT SLEEPING. WILL CONTINUE TO MONITOR.
--- NOTE | 2019-11-30 20:05 | NUR ---
LYING IN BED. ALERT AND ORIENTED. CONFUSED AT TIMES. RESP EVEN AND NONLABORED. FUSSING ABOUT WEARING O2. O2 @ 3L/NC. ABD IS DISTENDED AND FIRM. 4+ PITTING EDEMA NOTED TO BLE. EGGCRATE HEEL PROTECTORS IN USE BILAT. NS @ 10 MLHR INFUSING IN LT HAND. RANGEL CATH PATENT AND DRAINING DARK THEA URINE. INSTRUCTED OF NPO AFTER MIDNIGHT AND SHE VERBALIZED UNDERSTANDING. CONSENTS FOR PARACENTESIS SIGNED AND ON CHART. SR ELEVATED X2. CL IN REACH. C/O ABD PAIN.
--- NOTE | 2019-11-30 22:30 | MORECARE ---
CASE MANAGEMENT DISCHARGE SUMMARY PATIENT: RASHEED BOYD UNIT: [id number] ADM DATE: 11/18/19 AGE: 64 : 57 SEX: F ROOM/BED: D.2209 AUTHOR: BENITA LEAVITT PHYSICIAN: REFERRING PHYSICIAN: MARQUEZ GAUTAM MD DATE OF SERVICE: 11/30/19 Discharge Plan Patient Name: RASHEED BOYD Facility: [facility]:[place] : 1955 Planned Disposition: Home Anticipated Discharge Date: Discharge Date: Expected LOS: Initial Reviewer: [email or web address] Initial Review Date: 11/23/2019 Generated: 11/30/19 11:29 pm DCP- Discharge Planning Updated by [email or web address]: Deyanira Aldrich on 11/23/19 6:[address] Patient Name: RASHEED BOYD Admission Status: ER Accout number: [id number] Admission Date: 11-18-2019 : 1955 Admission Diagnosis:FEVER, UNSPECIFIED Attending: MARQUEZ GAUTAM Current LOS: 5 Anticipated DC Date: Planned Disposition: Home Primary Insurance: MEDICAID [place] Discharge Planning Comments: CM met with patient to complete initial dc planning assessment. CM educated patient on the CM role and verbal consent given by patient to complete assessment. Patient lives at home with her spouse where she is independent with her care. At discharge patient plans to return home and feels this is a safe discharge. Patient stated that her has been speaking with [employer] to get her some assistance at home. JACQUELIN signed. Her will drive her home. Patient denied known discharge needs at this time. CM will continue to follow and will assist as needed with dc plans/needs. Narcotics Investigator: Deyanira Aldrich DCPIA - Discharge Planning Initial Assessment Updated by [email or web address]: Deyanira Aldrich on 11/23/19 7:31 pm * Is the patient Alert and Oriented? Yes * How many steps to enter\exit or inside your home? 3-5 * PCP DAIN * Pharmacy [facility] * Preadmission Environment Home with Family * ADLs Independent * Other Equipment WALKER, CANE, W/C, SC * List name and contact numbers for known caregivers / representatives who currently or will assist patient after discharge: SHERICE BOYD - SPOUSE - [phone] * Additional services required to return to the preadmission environment? No * Can the patient safely return to the preadmission environment? Yes * Has this patient been hospitalized within the prior 30 days at any hospital? No Last DP export: 11/23/19 6:41 p Patient Name: RASHEED BOYD Page 13824 at 2230 All edits/amendments must be made on the electronic document DICTATION DATE: 11/30/192229 ADJUSTER ELECTRICAL CONTACTS: ABDULLAHI 11/30/192229 RPT#: [id number] DC DATE: STATUS: ADM IN [facility] [address] [place] [address] END OF REPORT
[2019-12-01] VITALS (13 sets, daily range): BP systolic 86–110; BP diastolic 40–62
--- NOTE | 2019-12-01 00:40 | NUR ---
MEDICATED WITH IBUPROFEN FOR ELEVATED TEMP. PT C/O BEING COLD. HAS SEVERAL BLANKETS ON. BLANKETS REMOVED AND AIR TURNED ON. CL IN REACH.
--- NOTE | 2019-12-01 04:37 | NUR ---
HAD HIBA BATH AND COMPLETE LINEN CHANGE PER SPRINKLING SYSTEM INSTALLER.
[2019-12-01 05:04] LABS: BASOPHILS 0.4 % (0-2); EOSINOPHILS 1.1 % (0-7); HEMATOCRIT 26.1 % (36.0-48.0); HEMOGLOBIN 8.7 g/dL (12-16); IMMATURE GRANULOCYTES 0.2 % (0-5); LYMPHOCYTES 20.6 % (15-50); MCH 31.2 pg (26.0-34.0); MCHC 33.3 g/dL (31.0-37.0); MCV 93.5 fL (80.0-100.0); MEAN PLATELET VOLUME 11.4 fL (7.4-10.4); MONOCYTES 15.3 % (2-11); NEUTROPHILS 62.4 % (40-80); PLATELET COUNT 76 10x3/uL (130-400); RBC 2.79 10x6/uL (4.00-5.40); RDW 19.8 % (11.5-14.5); WBC 4.7 10x3/uL (4.8-10.8)
[2019-12-01 05:26] LABS: APTT 40.9 SECONDS (22.8-39.4); INR 1.99 (0.85-1.17); PROTIME 22.3 SECONDS (11.6-15.0)
[2019-12-01 05:45] LABS: ALKALINE PHOSPHATASE 103 U/L (30-120); ALT (SGPT) 18 U/L (10-68); BILIRUBIN - TOTAL 6.33 mg/dL (0.2-1.3); CALC OSMOLALITY 262 mosm/kg (275-300); CALCIUM 7.8 mg/dL (8.5-10.1); CARBON DIOXIDE 21.9 mmol/L (21.0-32.0); CHLORIDE - SERUM 100 mmol/L (98-107); CREATININE - SERUM 0.5 mg/dL (0.6-1.3); GLUCOSE 124 mg/dL (74-106); PROTEIN - SERUM 4.9 g/dL (6.4-8.2); SODIUM 131 mmol/L (136-145); UREA NITROGEN 11 mg/dL (7-18); eGFR NON AFRICAN AMERICAN > 90 mL/min (90-120)
--- NOTE | 2019-12-01 07:45 | NUR ---
PATIENT SITUATED ON LEFT SIDE. CO RIGHT ARM FELT LIKE IT WAS LOSING FEELING. "LIKE HER GOWN WAS PINCHING IT OFF." GOWN WAS LOOSE AROUND HER ARM. PATIENT STATED SHE FELT BETTER AFTER SHE HAD REPOSITIONED. CL IN REACH. BED ALARM ON. WCTM
--- NOTE | 2019-12-01 08:28 | NUR ---
CALLED SPECIALS TO SEE WHEN PARACENTESIS WOULD BE. COAG LEVELS ARE ELEVATED SO MIGHT NOT BE TODAY. WILL LET ME KNOW THEN I WILL INFORM THE PATIENT.
--- NOTE | 2019-12-01 10:56 | NUR ---
DEMONSTRATED INCENTIVE SPIROMETER 1250 IS GOAL. NO ENCOURAGEMENT NEEDED. LEMON SWABS PROVIDED. CL IN REACH. QUESTIONS ANSWERED TO SURGERY. WCTM
--- NOTE | 2019-12-01 18:26 | NUR ---
BLADDER TRAINING OVER. PATIENT ABLE TO FEEL BLADDER FULL. RELEASE OF RANGEL ALLOWED URINE TO FLOW. RANGEL REMOVED 8 ML IN BALLOON. REMOVED WITH NO DIFFICULTY. CL IN REACH. WCTM
[2019-12-02 04:00] VITALS: BP 95/45
[2019-12-02 04:34] LABS: BASOPHILS 0.4 % (0-2); EOSINOPHILS 0.9 % (0-7); HEMATOCRIT 25.9 % (36.0-48.0); HEMOGLOBIN 8.6 g/dL (12-16); IMMATURE GRANULOCYTES 0.2 % (0-5); LYMPHOCYTES 28.5 % (15-50); MCH 31.3 pg (26.0-34.0); MCHC 33.2 g/dL (31.0-37.0); MCV 94.2 fL (80.0-100.0); MEAN PLATELET VOLUME 10.1 fL (7.4-10.4); MONOCYTES 14.3 % (2-11); NEUTROPHILS 55.7 % (40-80); PLATELET COUNT 72 10x3/uL (130-400); RBC 2.75 10x6/uL (4.00-5.40); RDW 20.3 % (11.5-14.5); WBC 4.7 10x3/uL (4.8-10.8)
[2019-12-02 04:49] LABS: PLATELET ESTIMATE DECREASED
[2019-12-02 04:54] LABS: INR 1.89 (0.85-1.17); PROTIME 21.5 SECONDS (11.6-15.0)
[2019-12-02 05:10] LABS: ALKALINE PHOSPHATASE 119 U/L (30-120); ALT (SGPT) 15 U/L (10-68); BILIRUBIN - TOTAL 6.24 mg/dL (0.2-1.3); CALC OSMOLALITY 264 mosm/kg (275-300); CALCIUM 7.9 mg/dL (8.5-10.1); CARBON DIOXIDE 24.4 mmol/L (21.0-32.0); CHLORIDE - SERUM 100 mmol/L (98-107); GLUCOSE 123 mg/dL (74-106); POTASSIUM - SERUM 3.5 mmol/L (3.5-5.1); PROTEIN - SERUM 4.8 g/dL (6.4-8.2); SODIUM 132 mmol/L (136-145); UREA NITROGEN 10 mg/dL (7-18)
[2019-12-02 05:22] LABS: CREATININE - SERUM 0.7 mg/dL (0.6-1.3); eGFR NON AFRICAN AMERICAN 90 mL/min (90-120)
[2019-12-02 09:31] VITALS: BP 101/57
[2019-12-02 11:34] VITALS: BP 114/58
[2019-12-02 17:50] VITALS: BP 100/51
[2019-12-02 20:00] VITALS: BP 101/61
[2019-12-03 04:00] VITALS: BP 97/49
[2019-12-03 04:32] LABS: BASOPHILS 0.2 % (0-2); EOSINOPHILS 1.7 % (0-7); HEMATOCRIT 25.3 % (36.0-48.0); HEMOGLOBIN 8.5 g/dL (12-16); IMMATURE GRANULOCYTES 0.4 % (0-5); MCH 31.4 pg (26.0-34.0); MCHC 33.6 g/dL (31.0-37.0); MCV 93.4 fL (80.0-100.0); MEAN PLATELET VOLUME 11.2 fL (7.4-10.4); MONOCYTES 16.8 % (2-11); NEUTROPHILS 48.9 % (40-80); PLATELET COUNT 77 10x3/uL (130-400); RBC 2.71 10x6/uL (4.00-5.40); RDW 20.2 % (11.5-14.5); WBC 4.8 10x3/uL (4.8-10.8)
[2019-12-03 04:54] LABS: INR 1.93 (0.85-1.17); PROTIME 21.8 SECONDS (11.6-15.0)
[2019-12-03 05:07] LABS: ALKALINE PHOSPHATASE 106 U/L (30-120); ALT (SGPT) 13 U/L (10-68); BILIRUBIN - TOTAL 5.85 mg/dL (0.2-1.3); CALC OSMOLALITY 261 mosm/kg (275-300); CALCIUM 7.5 mg/dL (8.5-10.1); CARBON DIOXIDE 25.4 mmol/L (21.0-32.0); CHLORIDE - SERUM 98 mmol/L (98-107); GLUCOSE 104 mg/dL (74-106); POTASSIUM - SERUM 3.2 mmol/L (3.5-5.1); PROTEIN - SERUM 4.9 g/dL (6.4-8.2); SODIUM 131 mmol/L (136-145); UREA NITROGEN 9 mg/dL (7-18)
[2019-12-03 05:21] LABS: CREATININE - SERUM 0.5 mg/dL (0.6-1.3); eGFR NON AFRICAN AMERICAN > 90 mL/min (90-120)
--- NOTE | 2019-12-03 07:39 | NUR ---
PT SITTING UP IN BED, ASSISTED WITH BEDPAN, IV TO LEFT HAND, CLEAN DRY AND INTACT AREA AROUND HAND IS BRUISED, PT STATES HAS BEEN LIKE THAT DUE TO BLOOD DRAWS ETC. NC AT 3L, ABD DISTENDED, PT IS JAUNDICE IN COLOR. REQUESTS ATIVAN AND A DONUT FOR BOTTOM DURING MORNING MEDS, NO OTHER NEEDS AT THIS TIME. CL IN REACH, ASSUME PT CARE
[2019-12-03 07:59] VITALS: BP 112/57
--- NOTE | 2019-12-03 09:39 | NUR ---
I have reviewed this patient and I concur with the Shift Assessment completed by the Licensed Practical Nurse today this shift.
--- NOTE | 2019-12-03 11:58 | NUR ---
PT K+ CAME BACK AT 3.4, ADMINISTERED ADDITIONAL K+ PER PROTOCOL AND REORDERED LAB DRAW. PT SITTING UP IN CHAIR AT BEDSIDE, NO NEEDS VOICED, CONTINUE WITH PLAN OF CARE
[2019-12-03 12:02] VITALS: BP 99/53
--- NOTE | 2019-12-03 12:44 | MORECARE ---
CASE MANAGEMENT DISCHARGE SUMMARY PATIENT: RASHEED BOYD UNIT: [id number] ADM DATE: 11/18/19 AGE: 64 : 57 SEX: F ROOM/BED: D.2208 AUTHOR: BENITA LEAVITT PHYSICIAN: REFERRING PHYSICIAN: MARQUEZ GAUTAM MD DATE OF SERVICE: 12/03/19 Discharge Plan Patient Name: RASHEED BOYD Facility: [facility]:[place] : 1955 Planned Disposition: Home Anticipated Discharge Date: Discharge Date: Expected LOS: Initial Reviewer: [email or web address] Initial Review Date: 11/23/2019 Generated: 12/03/19 1:44 pm Comments DCP- Discharge Planning Updated by [id number]: Corine Grewal on 12/03/19 11:[address] I spoke with the patient and Vladislav (spouse) at length today about discharge plan. I explained to her that she needed a safe discharge & if she is unable to care for herself while her is at work then she is not safe to go home. We talked about home health vs senior living. She is adamant that she does not want to go to a senior living. Her stated that [employer] has approved for 15 hours, but Nga Metzger was working on more. I called Nga ([phone]) to get an update and I had to leave her a message for her to call me back. CM will continue to follow and assist for dc planning. DCP- Discharge Planning Updated by [id number]: Deyanira Aldrich on 11/23/19 6:[address] Patient Name: RASHEED BOYD Admission Status: ER Accout number: [id number] Admission Date: 11-18-2019 : 1955 Admission Diagnosis:FEVER, UNSPECIFIED Attending: MARQUEZ GAUTAM Current LOS: 5 Anticipated DC Date: Planned Disposition: Home Primary Insurance: MEDICAID [place] Discharge Planning Comments: CM met with patient to complete initial dc planning assessment. CM educated patient on the CM role and verbal consent given by patient to complete assessment. Patient lives at home with her spouse where she is independent with her care. At discharge patient plans to return home and feels this is a safe discharge. Patient stated that her has been speaking with [employer] to get her some assistance at home. JACQUELIN signed. Her will drive her home. Patient denied known discharge needs at this time. CM will continue to follow and will assist as needed with dc plans/needs. Floor Covering Printer: Deyanira Aldrich DCPIA - Discharge Planning Initial Assessment Updated by [id number]: Deyanira Aldrich on 11/23/19 7:31 pm * Is the patient Alert and Oriented? Yes * How many steps to enter\exit or inside your home? 3-5 * PCP DAIN * Pharmacy [facility] * Preadmission Environment Home with Family * ADLs Independent * Other Equipment WALKER, CANE, W/C, SC * List name and contact numbers for known caregivers / representatives who currently or will assist patient after discharge: VLADISLAV BOYD - [facility] - [phone] * Additional services required to return to the preadmission environment? No * Can the patient safely return to the preadmission environment? Yes * Has this patient been hospitalized within the prior 30 days at any hospital? No Last DP export: 11/30/19 9:30 p Patient Name: RASHEED BOYD Page 61861 at 1244 All edits/amendments must be made on the electronic document DICTATION DATE: 12/03/191243 OTHER SPORTS COACH OR INSTRUCTOR: ABDULLHAI 12/03/191243 RPT#: [id number] DC DATE: STATUS: ADM IN [facility] [address] [place] [address] END OF REPORT
--- NOTE | 2019-12-03 14:53 | NUR ---
OT NOTE: PT REQUIRED MOD A FOR CHAIR TO BED TRANSFER. PT REQUIRED MIN A FOR POSITONING IN BED. PT COMPLETED HAND HYGIENE WITH SETUP. [phone] THANK YOU,SACHIN SEQUEIRA
[2019-12-03 15:39] VITALS: BP 97/54
--- NOTE | 2019-12-03 15:40 | MORECARE ---
CASE MANAGEMENT DISCHARGE SUMMARY PATIENT: RASHEED BOYD UNIT: [id number] ADM DATE: 11/18/19 AGE: 64 : 57 SEX: F ROOM/BED: D.2208 AUTHOR: BENITA LEAVITT PHYSICIAN: REFERRING PHYSICIAN: MARQUEZ GAUTAM MD DATE OF SERVICE: 12/03/19 Discharge Plan Patient Name: RASHEED BOYD Facility: [facility]:[place] : 1955 Planned Disposition: Home Anticipated Discharge Date: Discharge Date: Expected LOS: Initial Reviewer: [email or web address] Initial Review Date: 11/23/2019 Generated: 12/03/19 4:39 pm Comments DCP- Discharge Planning Updated by [email or web address]: Corine Grewal on 12/03/19 2:[address] SMILEY METZGER CALLED ME BACK AND SHE HAS STARTED THE [facility] DCP- Discharge Planning Updated by [id number]: Corine Grewal on 12/03/19 11:[address] I spoke with the patient and Vladislav (spouse) at length today about discharge plan. I explained to her that she needed a safe discharge & if she is unable to care for herself while her is at work then she is not safe to go home. We talked about home health vs senior living. She is adamant that she does not want to go to a senior living. Her stated that [employer] has approved for 15 hours, but Nga Metzger was working on more. I called Nga ([phone]) to get an update and I had to leave her a message for her to call me back. CM will continue to follow and assist for dc planning. DCP- Discharge Planning Updated by [email or web address]: Deyanira Aldrich on 11/23/19 6:[address] Patient Name: RASHEED BOYD Admission Status: ER Accout number: [id number] Admission Date: 11-18-2019 : 1955 Admission Diagnosis:FEVER, UNSPECIFIED Attending: MARQUEZ GAUTAM Current LOS: 5 Anticipated DC Date: Planned Disposition: Home Primary Insurance: MEDICAID [place] Discharge Planning Comments: CM met with patient to complete initial dc planning assessment. CM educated patient on the CM role and verbal consent given by patient to complete assessment. Patient lives at home with her spouse where she is independent with her care. At discharge patient plans to return home and feels this is a safe discharge. Patient stated that her has been speaking with [employer] to get her some assistance at home. JACQUELIN signed. Her will drive her home. Patient denied known discharge needs at this time. CM will continue to follow and will assist as needed with dc plans/needs. Academic Counselor: Deyanira Aldrich DCPIA - Discharge Planning Initial Assessment Updated by [email or web address]: Deyanira Aldrich on 11/23/19 7:31 pm * Is the patient Alert and Oriented? Yes * How many steps to enter\exit or inside your home? 3-5 * PCP DAIN * [facility] * Preadmission Environment Home with Family * ADLs Independent * Other Equipment WALKER, CANE, W/C, SC * List name and contact numbers for known caregivers / representatives who currently or will assist patient after discharge: VLADISLAV BOYD - SPOUSE - [phone] * Additional services required to return to the preadmission environment? No * Can the patient safely return to the preadmission environment? Yes * Has this patient been hospitalized within the prior 30 days at any hospital? No Last DP export: 12/03/19 11:44 am Patient Name: RASHEED BOYD Page 59434 at 1540 All edits/amendments must be made on the electronic document DICTATION DATE: 12/03/191538 DIRECTOR MEDICAL SURGICAL: ABDULLAHI 12/03/191538 RPT#: [id number] DC DATE: STATUS: ADM IN [facility] [address] [place] [address] END OF REPORT
[2019-12-03 20:00] VITALS: BP 96/46
--- NOTE | 2019-12-03 21:30 | NUR ---
PT C/O RIGHT FOOT AND BACK PAIN 02/10. GAVE ADVIL 200 MG PO AND SCHEDULED MEDS. PT INCONTINENT AT TIMES. SET-UP [place]. FSBS 224 - GAVE 8 UNITS INSULIN PER SS. ASSESSMENT COMPLETE PER FLOW-SHEET. TURNED PT ON LEFT SIDE. NO OTHER NEEDS. WILL REASSESS AND CONTINUE TO MONITOR.
[2019-12-04] VITALS: BP 90/44
[2019-12-04 04:00] VITALS: BP 95/45
[2019-12-04 05:33] LABS: BASOPHILS 0.5 % (0-2); EOSINOPHILS 2.7 % (0-7); HEMATOCRIT 25.8 % (36.0-48.0); HEMOGLOBIN 8.5 g/dL (12-16); IMMATURE GRANULOCYTES 0.2 % (0-5); MCH 31.3 pg (26.0-34.0); MCHC 32.9 g/dL (31.0-37.0); MCV 94.9 fL (80.0-100.0); MEAN PLATELET VOLUME 10.2 fL (7.4-10.4); MONOCYTES 18.2 % (2-11); NEUTROPHILS 40.4 % (40-80); PLATELET COUNT 78 10x3/uL (130-400); RBC 2.72 10x6/uL (4.00-5.40); RDW 20.7 % (11.5-14.5); WBC 4.1 10x3/uL (4.8-10.8)
[2019-12-04 05:47] LABS: ALBUMIN 3.3 g/dL (3.4-5.0); ALKALINE PHOSPHATASE 119 U/L (30-120); ALT (SGPT) 16 U/L (10-68); BILIRUBIN - TOTAL 5.38 mg/dL (0.2-1.3); CALC OSMOLALITY 270 mosm/kg (275-300); CARBON DIOXIDE 25.3 mmol/L (21.0-32.0); CHLORIDE - SERUM 99 mmol/L (98-107); CREATININE - SERUM 0.6 mg/dL (0.6-1.3); GLUCOSE 108 mg/dL (74-106); POTASSIUM - SERUM 3.4 mmol/L (3.5-5.1); PROTEIN - SERUM 5.2 g/dL (6.4-8.2); SODIUM 135 mmol/L (136-145); eGFR NON AFRICAN AMERICAN > 90 mL/min (90-120)
[2019-12-04 05:48] LABS: UREA NITROGEN 12 mg/dL (7-18)
[2019-12-04 05:50] LABS: INR 1.82 (0.85-1.17); PROTIME 20.9 SECONDS (11.6-15.0)
[2019-12-04 07:13] LABS: PLATELET ESTIMATE DECREASED
--- NOTE | 2019-12-04 07:43 | NUR ---
PT LYING IN BED, REQUESTED TO HAVE PEPCID OR SOMETHING FOR HEART BURN THIS MORNING, ENSURED PT I WILL BRING WITH MORNING MEDS, PT IV IN LEFT HAND IS LEAKING, REINFORCED DRESSING, NS AT 10, PT HAS ALBUMIN SCHEDULED BUT NO OTHER IV MEDS, WILL CONTINUE TO MONITOR. BED IN LOWEST POSITION, CL IN REACH CONTINUE WITH PLAN OF CARE
[2019-12-04 08:00] VITALS: BP 109/60
[2019-12-04 12:05] VITALS: BP 102/51
--- NOTE | 2019-12-04 14:37 | NUR ---
STARTED PT ALBUMIN AND THEN PT ON CL STATED IV IS LEAKING, PT IV IS NO GOOD, DC WITH CATHETER IN TACT AND WILL START ANOTHER
--- NOTE | 2019-12-04 14:51 | NUR ---
PT RT WRIGHT SEEPING, PLACED DRESSING OVER SITE AND WILL CHANGE NEEDED. CONTINUE WITH PLAN OF CARE
[2019-12-04 16:00] VITALS: BP 94/43
--- NOTE | 2019-12-04 17:16 | NUR ---
I have reviewed this patient and I concur with the Shift Assessment completed by the Licensed Practical Nurse today this shift.
[2019-12-04 19:43] VITALS: BP 95/54
--- NOTE | 2019-12-05 02:00 | NUR ---
PATIENT RESTING IN BED WITH EYES CLOSED. NO S/S OF DISTRESS. NO C/O AT THIS TIME. PATIENT HAS 3L OF O2 NASAL CANNULA. PATIENT HAS IV IN LEFT FOREARM NORMAL SALINE @ 10 ML/HR. IV IS PATENT WITHOUT REDNESS, SWELLING, OR TENDERNESS. PATIENT'S STOMACH IS DISTENTED, AND PATIENT HAS JUANDICE. PATIENT HAS SKIN TEAR ON RIGHT WRIGHT WITH DRESSING C/D/I. PATIENT HAS RIGHT HEEL SORE WITH ESCHAR AND DRESSING C/D/I. PATIENT HAS HEEL PROTECTORS IN PLACE. PATIENT HAS A BLE EDEMA +3. PATIENT IS POST-OP DAY 3 OF A PERICENTESIS. CALL LIGHT WITHIN REACH. WILL CONTINUE TO MONITOR.
[2019-12-05 04:00] VITALS: BP 97/58
--- NOTE | 2019-12-05 07:35 | NUR ---
PT RESTING IN BED WITH EYES OPEN, ALERT AND ORIENTED. IV LOCATED TO LEFT FOREARM RUNNING NS @ 10ML. NO CURRENT S/S OF DISTRESS AT THIS TIME, DENIES NEEDS, WILL CONT TO MONITOR.
[2019-12-05 08:03] VITALS: BP 96/54
--- NOTE | 2019-12-05 10:55 | NUR ---
FSBS 244, 8 UNITS GIVEN.
--- NOTE | 2019-12-05 11:08 | NUR ---
PT STATES THAT BEFORE SHE GOES HOME SHE WOULD LIKE THE DR TO SPEAK WITH HER ABOUT THE SCALE/DOSING OF INSULIN SHE SHOULD BE USING. SHE STATES THAT SHE HAS NEVER GIVEN HERSELF SHOTS BEFORE AND ISNT AWARE OF HOW MUCH SHE SHOULD BE TAKING ACCORDING TO HER FSBS READING.
[2019-12-05 13:03] VITALS: BP 91/52
--- NOTE | 2019-12-05 16:04 | NUR ---
FSBS 150, NO TREATMENT NEEDED.
[2019-12-05 17:32] VITALS: BP 130/58
[2019-12-05 20:00] VITALS: BP 90/46
[2019-12-06] VITALS: BP 93/49
[2019-12-06 04:00] VITALS: BP 100/48
[2019-12-06 04:48] LABS: BASOPHILS 0.2 % (0-2); EOSINOPHILS 3.1 % (0-7); HEMATOCRIT 25.6 % (36.0-48.0); HEMOGLOBIN 8.4 g/dL (12-16); IMMATURE GRANULOCYTES 0.5 % (0-5); LYMPHOCYTES 35.7 % (15-50); MCHC 32.8 g/dL (31.0-37.0); MCV 94.5 fL (80.0-100.0); MEAN PLATELET VOLUME 11.1 fL (7.4-10.4); MONOCYTES 16.9 % (2-11); NEUTROPHILS 43.6 % (40-80); RBC 2.71 10x6/uL (4.00-5.40); RDW 20.7 % (11.5-14.5); WBC 4.2 10x3/uL (4.8-10.8)
[2019-12-06 05:01] LABS: PLATELET COUNT 101 10x3/uL (130-400)
[2019-12-06 05:02] LABS: INR 1.77 (0.85-1.17); PROTIME 20.4 SECONDS (11.6-15.0)
[2019-12-06 05:16] LABS: ALBUMIN 3.5 g/dL (3.4-5.0); ALKALINE PHOSPHATASE 115 U/L (30-120); ALT (SGPT) 16 U/L (10-68); BILIRUBIN - TOTAL 4.64 mg/dL (0.2-1.3); CALC OSMOLALITY 265 mosm/kg (275-300); CALCIUM 8.3 mg/dL (8.5-10.1); CARBON DIOXIDE 24.2 mmol/L (21.0-32.0); CHLORIDE - SERUM 101 mmol/L (98-107); CREATININE - SERUM 0.6 mg/dL (0.6-1.3); GLUCOSE 89 mg/dL (74-106); POTASSIUM - SERUM 3.8 mmol/L (3.5-5.1); PROTEIN - SERUM 5.5 g/dL (6.4-8.2); SODIUM 134 mmol/L (136-145); UREA NITROGEN 10 mg/dL (7-18); eGFR NON AFRICAN AMERICAN > 90 mL/min (90-120)
--- NOTE | 2019-12-06 07:32 | NUR ---
PT SITTING UP IN BED STATED SHE IS READY FOR PROCEDURE AND TO BE HOME, IV IN LEFT FA INTACT, NS AT 10, RT LEG HAS DRESSING ON DUE TO WEEPING EDEMA, NO S/SX OF DISTRESS, CL IN REACH, ASSUME PT CARE
[2019-12-06 08:02] VITALS: BP 94/49
[2019-12-06 11:45] VITALS: BP 104/51
--- NOTE | 2019-12-06 12:15 | NUR ---
STARTED PT FIRST UNIT OF PLASMA, NO S/SX OF DISTRESS, CONTINUE WITH PLAN OF CARE
--- NOTE | 2019-12-06 12:44 | NUR ---
STARTED PT SECOND UNIT OF PLASMA, PT HAS DR GONZALEZ IN ROOM DOCTORING RT HEEL, NO OTHER NEEDS AT THIS TIME, CONTINUE WITH PLAN OF CARE
--- NOTE | 2019-12-06 14:24 | NUR ---
Nutrition follow-up: Pt currently NPO for drain placement Diet: low sodium PO intake 100% of last 3 meals Labs reviewed Wt: 157# RDN following.
--- NOTE | 2019-12-06 14:32 | NUR ---
OT NOTE: PT DOING BETTER. STATES THAT SHE WANTS TO HURRY AND GET THIS PROCEDURE SHE HAS BEEN WAITING "ALL DAY"..PT AMB IN ROOM WITH WALKER AND CGA; SINK HYGIENE WITH SPV.. AMB INTO HALLWAY TO IMPROVE STRENGTH AND ENDURANCE AND REQUIRED WALKER WITH CGA. NO SOB NOTED TODAY. PT MORE ALERT. MARÍA RACHEL, OTR/L
--- NOTE | 2019-12-06 14:32 | MORECARE ---
CASE MANAGEMENT DISCHARGE SUMMARY PATIENT: RASHEED BOYD UNIT: [id number] ADM DATE: 11/18/19 AGE: 64 : 57 SEX: F ROOM/BED: D.2208 AUTHOR: BENITA LEAVITT PHYSICIAN: REFERRING PHYSICIAN: MARQUEZ GAUTAM MD DATE OF SERVICE: 12/06/19 Discharge Plan Patient Name: RASHEED BOYD Facility: [facility]:[place] : 1955 Planned Disposition: Home Anticipated Discharge Date: Discharge Date: Expected LOS: Initial Reviewer: [email or web address] Initial Review Date: 11/23/2019 Generated: 12/06/19 3:31 pm Comments DCP- Discharge Planning Updated by [email or web address]: Corine Grewal on 12/06/19 1:[address] REFERRAL SENT TO [facility] TO SEE IF THEY CAN TAKE THE [facility] DRAIN MANAGEMENT DCP- Discharge Planning Updated by [email or web address]: Corine Grewal on 12/03/19 2:[address] SMILEY METZGER CALLED ME BACK AND SHE HAS STARTED [facility] DCP- Discharge Planning Updated by [email or web address]: Corine Grewal on 12/03/19 11:[address] I spoke with the patient and Vladislav (spouse) at length today about discharge plan. I explained to her that she needed a safe discharge & if she is unable to care for herself while her is at work then she is not safe to go home. We talked about home health vs [facility]. She is adamant that she does not want to go to a [facility]. Her stated that [employer] has approved for 15 hours, but Nga Metzger was working on more. I called Nga ([phone]) to get an update and I had to leave her a message for her to call me back. CM will continue to follow and assist for dc planning. DCP- Discharge Planning Updated by [email or web address]: Deyanira Aldrich on 11/23/19 6:[address] Patient Name: RASHEED BOYD Admission Status: ER Accout number: [id number] Admission Date: 11-18-2019 : 1955 Admission Diagnosis:FEVER, UNSPECIFIED Attending: MARQUEZ GAUTAM Current LOS: 5 Anticipated DC Date: Planned Disposition: Home Primary Insurance: MEDICAID [place] Discharge Planning Comments: CM met with patient to complete initial dc planning assessment. CM educated patient on the CM role and verbal consent given by patient to complete assessment. Patient lives at home with her spouse where she is independent with her care. At discharge patient plans to return home and feels this is a safe discharge. Patient stated that her has been speaking with [employer] to get her some assistance at home. JACQUELIN signed. Her will drive her home. Patient denied known discharge needs at this time. CM will continue to follow and will assist as needed with dc plans/needs. Public Relations Studies Director: Deyanira Aldrich DCPIA - Discharge Planning Initial Assessment Updated by [email or web address]: Deyanira Aldrich on 11/23/19 7:31 pm * Is the patient Alert and Oriented? Yes * How many steps to enter\exit or inside your home? 3-5 * PCP DAIN * [facility] * Preadmission Environment Home with Family * ADLs Independent * Other Equipment WALKER, CANE, W/C, SC * List name and contact numbers for known caregivers / representatives who currently or will assist patient after discharge: VLADISLAV BOYD - SPOUSE - [phone] * Additional services required to return to the preadmission environment? No * Can the patient safely return to the preadmission environment? Yes * Has this patient been hospitalized within the prior 30 days at any hospital? No External [facility]iders [facility] Next Contact Date: Service Request Date: Service Type: Resolution: Reviewer: Comments: Last DP export: 12/03/19 2:40 pm Patient Name: RASHEED OBYD Page [id number] at 1432 All edits/amendments must be made on the electronic document DICTATION DATE: 12/06/19 1432 DENTAL RECEPTIONIST: ABDULLAHI 12/06/19 1432 RPT#: [id number] DC DATE: STATUS: ADM IN [facility] [address] [place] [address] END OF REPORT
--- NOTE | 2019-12-06 15:23 | NUR ---
OT NOTE: PT COMPLETED ADL MOB WITH RW TO SINK. PT COMPLETED ORAL HYGIENE AND HAIR GROOMING AT SINK LEVEL WITH SBA. PT COMPLETED STANDING ENDURANCE WITH SBA. PT COMPLETED DYNAMIC STANDING BALANCE WITH CGA. PT STATED SHE IS HAVING A PROCEDURE SOMETIME TODAY. [phone] THANK YOU,SACHIN SEQUEIRA
--- NOTE | 2019-12-06 16:07 | MORECARE ---
CASE MANAGEMENT DISCHARGE SUMMARY PATIENT: RASHEED BOYD UNIT: [id number] ADM DATE: 11/18/19 AGE: 64 : 57 SEX: F ROOM/BED: D.2208 AUTHOR: TREE,DOC PHYSICIAN: REFERRING PHYSICIAN: MARQUEZ GAUTAM MD DATE OF SERVICE: 12/06/19 Discharge Plan Patient Name: RASHEED BOYD Facility: [facility]:[place] : 1955 Planned Disposition: Home Anticipated Discharge Date: Discharge Date: Expected LOS: Initial Reviewer: [email or web address] Initial Review Date: 11/23/2019 Generated: 12/06/19 5:06 pm Comments DCP- Discharge Planning Updated by [email or web address]: Corine Grewal on 12/06/19 3:[address] [facility] CAN NOT ACCEPT THIS PATIENT AT THIS TIME. I HAVE SENT THE REFERRAL TO [facility] SENT DCP- Discharge Planning Updated by [email or web address]: Corine Grewal on 12/06/19 1:[address] REFERRAL SENT TO [facility] TO SEE IF THEY CAN TAKE THE ASP[facility]A DRAIN MANAGEMENT DCP- Discharge Planning Updated by [id number]: Corine Grewal on 12/03/19 2:[address] [facility] CALLED ME BACK AND SHE HAS STARTED THE AR CHOICES DCP- Discharge Planning Updated by [email or web address]: Corine Grewal on 12/03/19 11:[address] I spoke with the patient and Vladislav (spouse) at length today about discharge plan. I explained to her that she needed a safe discharge & if she is unable to care for herself while her is at work then she is not safe to go home. We talked about home health vs snf. She is adamant that she does not want to go to a snf. Her stated that [employer] has approved for 15 hours, but Nga Yassine was working on more. I called Nga ([phone]) to get an update and I had to leave her a message for her to call me back. CM will continue to follow and assist for dc planning. DCP- Discharge Planning Updated by [email or web address]: Deyanira Aldrich on 11/23/19 6:[address] Patient Name: RASHEED BOYD Admission Status: ER Accout number: [id number] Admission Date: 11-18-2019 : 1955 Admission Diagnosis:FEVER, UNSPECIFIED Attending: MAQRUEZ GAUTAM Current LOS: 5 Anticipated DC Date: Planned Disposition: Home Primary Insurance: MEDICAID [place] Discharge Planning Comments: CM met with patient to complete initial dc planning assessment. CM educated patient on the CM role and verbal consent given by patient to complete assessment. Patient lives at home with her spouse where she is independent with her care. At discharge patient plans to return home and feels this is a safe discharge. Patient stated that her has been speaking with [employer] to get her some assistance at home. JACQUELIN signed. Her will drive her home. Patient denied known discharge needs at this time. CM will continue to follow and will assist as needed with dc plans/needs. Trading Specialist: Deyanira Aldrich DCPIA - Discharge Planning Initial Assessment Updated by [id number]: Deyanira Aldrich on 11/23/19 7:31 pm * Is the patient Alert and Oriented? Yes * How many steps to enter\exit or inside your home? 3-5 * PCP DAIN * Pharmacy [facility] * Preadmission Environment Home with Family * ADLs Independent * Other Equipment WALKER, CANE, W/C, SC * List name and contact numbers for known caregivers / representatives who currently or will assist patient after discharge: VLADISLAV BOYD - SPOUSE - [phone] * Additional services required to return to the preadmission environment? No * Can the patient safely return to the preadmission environment? Yes * Has this patient been hospitalized within the prior 30 days at any hospital? No External Providers External Provider: [facility] Next Contact Date: Service Request Date: Service Type: Resolution: Reviewer: Comments: Last DP export: 12/06/19 1:32 pm Patient Name: RASHEED BOYD Page 78865 at 1607 All edits/amendments must be made on the electronic document DICTATION DATE: 12/06/19 160 MEAT MOLDER: ABDULLAHI 12/06/19 160 RPT#: [id number] DC DATE: STATUS: ADM IN [address] [place] [address] END OF REPORT
--- NOTE | 2019-12-06 16:18 | NUR ---
RECEIVED PT BACK FROM SPECIALS, PT LYING IN BED, INSTRUCTED PT TO LIE STILL FOR 4 HOURS, PT HAS DRESSING TO RT LOWER ABD CDI, CONTINUE WITH PLAN OF CARE
[2019-12-06 16:49] VITALS: BP 112/56
--- NOTE | 2019-12-06 18:33 | NUR ---
I have reviewed this patient and I concur with the Shift Assessment completed by the Licensed Practical Nurse today this shift.
--- NOTE | 2019-12-06 19:30 | NUR ---
SUPINE IN BED, A&O X 4. REQUESTS BEDPAN, STATES SHE IS NOT SUPPOSED TO GET UP. INFORMED PT OF BATHROOM PRIVILEGES AND ENCOURAGED AMBULATING, PT REFUSED TO AMBULATE. VOIDED DARK/THEA URINE. PT PERFORMED OWN ALEJANDRA CARE/CLEANING. REPORTS PAIN TO COCCYX. AREA BONY/NO REDNESS NOTED. TURNED TO RIGHT SIDE. FRACTURE MERIDA PLACED IN ROOM. INCENTIVE SPIROMETER AT BEDSIDE, DENIES FURTHER NEEDS. CTM.
[2019-12-06 21:50] VITALS: BP 108/56
--- NOTE | 2019-12-07 | NUR ---
1PERSON ASSIST WHILE AMBULATING WITH WALKER TO BATHROOM. PT REPORTS WEAKNESS AND SLIGHT DIZZINESS. SUGGESTED BSC COMMODE NEXT TIME. PT AGREED, STATING SHE USES ONE AT HOME. BACK IN BED, SUPINE. CTM.
[2019-12-07 00:03] VITALS: BP 110/59
[2019-12-07 05:24] VITALS: BP 108/56
[2019-12-07 05:34] VITALS: BP 85/34
[2019-12-07 05:50] LABS: BASOPHILS 0.5 % (0-2); HEMATOCRIT 25.7 % (36.0-48.0); HEMOGLOBIN 8.3 g/dL (12-16); IMMATURE GRANULOCYTES 0.2 % (0-5); MCH 31.1 pg (26.0-34.0); MCHC 32.3 g/dL (31.0-37.0); MCV 96.3 fL (80.0-100.0); MEAN PLATELET VOLUME 10.1 fL (7.4-10.4); MONOCYTES 15.8 % (2-11); NEUTROPHILS 53.5 % (40-80); PLATELET COUNT 104 10x3/uL (130-400); RBC 2.67 10x6/uL (4.00-5.40); RDW 20.9 % (11.5-14.5); WBC 4.4 10x3/uL (4.8-10.8)
[2019-12-07 06:21] LABS: ALBUMIN 3.1 g/dL (3.4-5.0); ALKALINE PHOSPHATASE 106 U/L (30-120); ALT (SGPT) 15 U/L (10-68); BILIRUBIN - TOTAL 4.82 mg/dL (0.2-1.3); CALC OSMOLALITY 264 mosm/kg (275-300); CALCIUM 7.9 mg/dL (8.5-10.1); CARBON DIOXIDE 22.2 mmol/L (21.0-32.0); CHLORIDE - SERUM 101 mmol/L (98-107); GLUCOSE 91 mg/dL (74-106); MAGNESIUM - SERUM 1.8 mg/dL (1.8-2.4); PHOSPHOROUS 3.4 mg/dL (2.5-4.9); POTASSIUM - SERUM 3.5 mmol/L (3.5-5.1); PROTEIN - SERUM 5.2 g/dL (6.4-8.2); SODIUM 133 mmol/L (136-145); UREA NITROGEN 9 mg/dL (7-18)
[2019-12-07 06:23] LABS: CREATININE - SERUM 0.4 mg/dL (0.6-1.3); eGFR NON AFRICAN AMERICAN > 90 mL/min (90-120)
[2019-12-07 06:28] VITALS: BP 108/47
--- NOTE | 2019-12-07 07:15 | NUR ---
REC'D IN BED AWAKE AND ALERT. RESP EVEN AND UNLABORED WITH NO DISTRESS NOTED. CAN EXPRESS NEEDS AND WANTS. DRESSING NOTED TO RLE. NO C/O NOTED OR VOICED. SWOLLEN NOTED TO BLE. ASSESSMENT COMPLETED. C/L IN REACH AT BEDSIDE.
[2019-12-07] MEDS ORDERED: AMBIEN5 MG PO (09:02)
[2019-12-07 09:07] VITALS: BP 99/52
--- NOTE | 2019-12-07 12:43 | MORECARE ---
CASE MANAGEMENT DISCHARGE SUMMARY PATIENT: RASHEED BOYD UNIT: [id number] ADM DATE: 11/18/19 AGE: 64 : 57 SEX: F ROOM/BED: D.2209 AUTHOR: BENITA LEAVITT PHYSICIAN: REFERRING PHYSICIAN: MARQUEZ GAUTAM MD DATE OF SERVICE: 12/07/19 Discharge Plan Patient Name: RASHEED BOYD Facility: [facility]:[place] : 1955 Planned Disposition: Home Anticipated Discharge Date: Discharge Date: Expected LOS: Initial Reviewer: [email or web address] Initial Review Date: 11/23/2019 Generated: 12/07/19 1:43 pm Comments DCP- Discharge Planning Updated by [email or web address]: Corine Grewal on 12/07/19 11:[address] patient being discharged home today with [email or web address]. I spoke with Leah at [facility] & she said her paperwork was with the nurse and they were going to try to get her approved for emergency help. I also spoke with Beti with [facility] about helping the patient with a hospital bed. Beti said that they will help her with that. Emily with IR has filled out paperwork for supplies help. [facility] will be ordering her supplies for her drain. CM will continue to follow and assist with DC planing DCP- Discharge Planning Updated by [email or web address]: Corine Grewal on 12/06/19 3:[address] [facility] CAN NOT ACCEPT THIS PATIENT AT THIS TIME. I HAVE SENT THE REFERRAL TO [facility] SENT DCP- Discharge Planning Updated by [email or web address]: Corine Grewal on 12/06/19 1:[address] REFERRAL SENT TO [facility] TO SEE IF THEY CAN TAKE THE ASP[facility] DRAIN MANAGEMENT DCP- Discharge Planning Updated by [email or web address]: Corine Grewal on 12/03/19 2:[address] [facility] CALLED ME BACK AND SHE HAS STARTED THE AR CHOICES DCP- Discharge Planning Updated by [email or web address]: Corine Grewal on 12/03/19 11:[address] I spoke with the patient and Vladislav (spouse) at length today about discharge plan. I explained to her that she needed a safe discharge & if she is unable to care for herself while her is at work then she is not safe to go home. We talked about home health vs residential. She is adamant that she does not want to go to a residential. Her stated that [employer] has approved for 15 hours, but Nga Metzger was working on more. I called Nga ([phone]) to get an update and I had to leave her a message for her to call me back. CM will continue to follow and assist for dc planning. DCP- Discharge Planning Updated by [id number]: Deyanira Aldrich on 11/23/19 6:[address] Patient Name: RASHEED BYOD Admission Status: ER Accout number: [id number] Admission Date: 11-18-2019 : 1955 Admission Diagnosis:FEVER, UNSPECIFIED Attending: MARQUEZ GAUTAM Current LOS: 5 Anticipated DC Date: Planned Disposition: Home Primary Insurance: MEDICAID [place] Discharge Planning Comments: CM met with patient to complete initial dc planning assessment. CM educated patient on the CM role and verbal consent given by patient to complete assessment. Patient lives at home with her spouse where she is independent with her care. At discharge patient plans to return home and feels this is a safe discharge. Patient stated that her has been speaking with [employer] to get her some assistance at home. JACQUELIN signed. Her will drive her home. Patient denied known discharge needs at this time. CM will continue to follow and will assist as needed with dc plans/needs. Student Life Vice President: Deyanira Aldrich DCPIA - Discharge Planning Initial Assessment Updated by [email or web address]: Deyanira Aldrich on 11/23/19 7:31 pm * Is the patient Alert and Oriented? Yes * How many steps to enter\exit or inside your home? 3-5 * PCP DAIN * Pharmacy [facility] * Preadmission Environment Home with Family * ADLs Independent * Other Equipment WALKER, CANE, W/C, SC * List name and contact numbers for known caregivers / representatives who currently or will assist patient after discharge: VLADISLAV BOYD - SPOUSE - [phone] * Additional services required to return to the preadmission environment? No * Can the patient safely return to the preadmission environment? Yes * Has this patient been hospitalized within the prior 30 days at any hospital? No Coverage Notice Reviewer: [id number] - Corine Grewal Notice Issued Date-Time: 12/07/2019 12:00 Notice Type: Patient Choice Letter Notice Delivered To: Family Member Relationship to Patient: Spouse Melter Supervisor [employer] Name: Delivery Method: - Violetta Days: Prior Verbal Notification: Recipient Understood Notice: Recipient Signature: Med Rec Note Co-signed by Attending: Coverage Notice Comment: Last DP export: 12/06/19 3:07 pm Patient Name: RASHEED BOYD Page 68605 at 1243 All edits/amendments must be made on the electronic document DICTATION DATE: 12/07/19 1243 METALS ANALYST: ABDULLAHI 12/07/19 1243 RPT#: [id number] DC DATE: STATUS: ADM IN [facility] [address] [place] [address] END OF REPORT
--- NOTE | 2019-12-07 14:49 | MORECARE ---
CASE MANAGEMENT DISCHARGE SUMMARY PATIENT: RASHEED BOYD UNIT: [id number] ADM DATE: 11/18/19 AGE: 64 : 57 SEX: F ROOM/BED: D.2207 AUTHOR: BENITA LEAVITT PHYSICIAN: REFERRING PHYSICIAN: MARQUEZ GAUTAM MD DATE OF SERVICE: 12/07/19 Discharge Plan Patient Name: RASHEED BOYD Facility: [facility]:[place] : 1955 Planned Disposition: Home Anticipated Discharge Date: Discharge Date: Expected LOS: Initial Reviewer: [email or web address] Initial Review Date: 11/23/2019 Generated: 12/07/19 3:49 pm Comments DCP- Discharge Planning Updated by [email or web address]: Corine Grewal on 12/07/19 11:[address] patient being discharged home today with [facility]. I spoke with Leah at [facility] & she said her paperwork was with the nurse and they were going to try to get her approved for emergency help. I also spoke with Beti with [facility] about helping the patient with a hospital bed. Beti said that they will help her with that. Emily with IR has filled out paperwork for supplies help. [facility] will be ordering her supplies for her drain. CM will continue to follow and assist with DC planing DCP- Discharge Planning Updated by [id number]: Corine Grewal on 12/06/19 3:[address] [facility] CAN NOT ACCEPT THIS PATIENT AT THIS TIME. I HAVE SENT THE REFERRAL TO [facility] SENT DCP- Discharge Planning Updated by [email or web address]: Corine Grewal on 12/06/19 1:[address] REFERRAL SENT TO [facility] TO SEE IF THEY CAN TAKE THE ASPIRA DRAIN MANAGEMENT DCP- Discharge Planning Updated by [email or web address]: Corine Grewal on 12/03/19 2:[address] [facility]AH ZAID CALLED ME BACK AND SHE HAS STARTED THE AR CHOICES DCP- Discharge Planning Updated by [email or web address]: Corine Grewal on 12/03/19 11:[address] I spoke with the patient and Vladislav (spouse) at length today about discharge plan. I explained to her that she needed a safe discharge & if she is unable to care for herself while her is at work then she is not safe to go home. We talked about home health vs intermediate. She is adamant that she does not want to go to a intermediate. Her stated that [employer] [facility] has approved for 15 hours, but Nga Metzger was working on more. I called Nga ([phone]) to get an update and I had to leave her a message for her to call me back. CM will continue to follow and assist for dc planning. DCP- Discharge Planning Updated by [id number]: Deyanira Aldrich on 11/23/19 6:[address] Patient Name: RASHEED BOYD Admission Status: ER Accout number: [id number] Admission Date: 11-18-2019 : 1955 Admission Diagnosis:FEVER, UNSPECIFIED Attending: MARQUEZ GAUTAM Current LOS: 5 Anticipated DC Date: Planned Disposition: Home Primary Insurance: MEDICAID [place] Discharge Planning Comments: CM met with patient to complete initial dc planning assessment. CM educated patient on the CM role and verbal consent given by patient to complete assessment. Patient lives at home with her spouse where she is independent with her care. At discharge patient plans to return home and feels this is a safe discharge. Patient stated that her has been speaking with [employer] to get her some assistance at home. JACQUELIN signed. Her will drive her home. Patient denied known discharge needs at this time. CM will continue to follow and will assist as needed with dc plans/needs. Cutter Head Sharpener: Deyanira Aldrich DCPIA - Discharge Planning Initial Assessment Updated by [id number]: Deyanira Aldrich on 11/23/19 7:31 pm * Is the patient Alert and Oriented? Yes * How many steps to enter\exit or inside your home? 3-5 * PCP DAIN * Pharmacy [facility] * Preadmission Environment Home with Family * ADLs Independent * Other Equipment WALKER, CANE, W/C, SC * List name and contact numbers for known caregivers / representatives who currently or will assist patient after discharge: VLADISLAV BOYD - SPOUSE - [phone] * Additional services required to return to the preadmission environment? No * Can the patient safely return to the preadmission environment? Yes * Has this patient been hospitalized within the prior 30 days at any hospital? No Coverage Notice Reviewer: [id number] - Corine Grewal Notice Issued Date-Time: 12/07/2019 12:00 Notice Type: Patient Choice Letter Notice Delivered To: Family Member Relationship to Patient: Spouse Molasses Coloring Operator Name: Delivery Method: PHONE - Phone Violetta Days: Prior Verbal Notification: Recipient Understood Notice: Yes Recipient Signature: Yes Med Rec Note Co-signed by Attending: Coverage Notice Comment: jacquelin with home health who will take her basil Last DP export: 12/07/19 11:43 am Patient Name: RASHEED BOYD Page [phone] at 1449 All edits/amendments must be made on the electronic document DICTATION DATE: 12/07/191448 EDUCATION ANALYST: ABDULLAHI 12/07/19 1449 RPT#: [id number] DC DATE: STATUS: ADM IN [facility] [address] [place] [address] END OF REPORT
--- NOTE | 2019-12-07 14:59 | NUR ---
OT NOTE: PT COMPLETED ADL MOB TO BATHROOM WITH CGA/MIN A. PT COMPLETED TOILET HYGIENE WITH MIN/MOD A. PT COMPLETED HYGIENE AND HAIR GROOMING AT SINK LEVEL WITH CGA. PT COMPLETED DYNAMIC STANDING WITH CGA/MIN A. [id number] THANK YOU,SACHIN SEQUEIRA
--- NOTE | 2019-12-07 16:01 | NUR ---
OT NOTE: PT PERFORMED WELL TODAY; PERFORMED BED MOB WITH SBA AND EXT TIME; IN ROOM AMBULATION WITH HER ROLATER AND SBA. TRANSFER TO CHAIR WITH MIN ASSIST; SIT TO STAND WITH MIN ASSIST FROM CHAIR LEVEL; TOILETING WITH MIN ASSIST FOR HYGIENE; SINK HYGIENE WITH WALKER AND SBA. PT EAGERLY AWAITING DC HOME. MARÍA RACHEL, OTR/L [id number]
--- NOTE | 2019-12-07 16:05 | NUR ---
OT NOTE: (ADDENDUM) PT ALSO AMB WITH USE OF WALKER APPROX 90-100 FT.. PT STATED THAT HER LEGS WERE HURTING AND DID NOT FEEL THAT SHE GO ALL THE WAY AROUND NURSING STATION TODAY.. HOWEVER, PT ACTUALLY DID VERY WELL, SHE HAD PERFORMED ALL PREVIOUS EXS AND ACT PRIOR TO AMBULAITON. MARÍA RACHEL, OTR/L
--- NOTE | 2019-12-07 16:24 | NUR ---
DC HOME VOICE UNDERSTANDING OF DC ORDERS INSTRUCTIONS. IV DC. HAS ALL PERSONAL BELONGS UPON DC. STABLE CONDITION UPON DC.
--- NOTE | 2019-12-08 09:19 | MORECARE ---
CASE MANAGEMENT DISCHARGE SUMMARY PATIENT: RASHEED BOYD UNIT: [id number] ADM DATE: 11/18/19 AGE: 64 : 57 SEX: F ROOM/BED: D.2200 AUTHOR: TREEDOC PHYSICIAN: REFERRING PHYSICIAN: MARQUEZ GAUTAM MD DATE OF SERVICE: 12/08/19 Discharge Plan Patient Name: RASHEED BOYD Facility: [facility]:[place] : 1955 Planned Disposition: Home Anticipated Discharge Date: Discharge Date: 12/07/2019 Expected LOS: Initial Reviewer: [id number] Initial Review Date: 11/23/2019 Generated: 12/08/19 10:19 am Comments DCP- Discharge Planning Updated by [email or web address]: Corine Grewal on 12/07/19 11:[address] patient being discharged home today with [facility]. I spoke with Leah at [facility] & she said her paperwork was with the nurse and they were going to try to get her approved for emergency help. I also spoke with Beti with [facility] about helping the patient with a hospital bed. Beti said that they will help her with that. Emily with IR has filled out paperwork for supplies help. [facility] will be ordering her supplies for her drain. CM will continue to follow and assist with DC planing DCP- Discharge Planning Updated by [id number]: Corine Grewal on 12/06/19 3:[address] [facility] CAN NOT ACCEPT THIS PATIENT AT THIS TIME. I HAVE SENT THE REFERRAL TO [facility] SENT DCP- Discharge Planning Updated by [email or web address]: Corine Grewal on 12/06/19 1:[address] REFERRAL SENT TO [facility] TO SEE IF THEY CAN TAKE THE ASPIRA DRAIN MANAGEMENT DCP- Discharge Planning Updated by [email or web address]: Corine Grewal on 12/03/19 2:[address] [facility] METZ[facility] CALLED ME BACK AND SHE HAS STARTED THE AR CHOICES DCP- Discharge Planning Updated by [email or web address]: Corine Grewal on 12/03/19 11:[address] I spoke with the patient and Vladislav (spouse) at length today about discharge plan. I explained to her that she needed a safe discharge & if she is unable to care for herself while her is at work then she is not safe to go home. We talked about home health vs alf. She is adamant that she does not want to go to a alf. Her stated that [employer] [facility] has approved for 15 hours, but [facility] Metz[facility] was working on more. I called Nga ([phone]) to get an update and I had to leave her a message for her to call me back. CM will continue to follow and assist for dc planning. DCP- Discharge Planning Updated by [email or web address]: Deyanira Aldrich on 11/23/19 6:[address] Patient Name: RASHEED BOYD Admission Status: ER Accout number: [id number] Admission Date: 11-18-2019 : 1955 Admission Diagnosis:FEVER, UNSPECIFIED Attending: MARQUEZ GAUTAM Current LOS: 5 Anticipated DC Date: Planned Disposition: Home Primary Insurance: MEDICAID [place] Discharge Planning Comments: CM met with patient to complete initial dc planning assessment. CM educated patient on the CM role and verbal consent given by patient to complete assessment. Patient lives at home with her spouse where she is independent with her care. At discharge patient plans to return home and feels this is a safe discharge. Patient stated that her has been speaking with [employer] to get her some assistance at home. JACQUELIN signed. Her will drive her home. Patient denied known discharge needs at this time. CM will continue to follow and will assist as needed with dc plans/needs. Microbial Specialist: Deyanira Aldrich DCPIA - Discharge Planning Initial Assessment Updated by [email or web address]: Deyanira Aldrich on 11/23/19 7:31 pm * Is the patient Alert and Oriented? Yes * How many steps to enter\exit or inside your home? 3-5 * PCP DAIN * Pharmacy [facility] * Preadmission Environment Home with Family * ADLs Independent * Other Equipment WALKER, CANE, W/C, SC * List name and contact numbers for known caregivers / representatives who currently or will assist patient after discharge: VLADISLAV BOYD - SPOUSE - [phone] * Additional services required to return to the preadmission environment? No * Can the patient safely return to the preadmission environment? Yes * Has this patient been hospitalized within the prior 30 days at any hospital? No Coverage Notice Reviewer: [id number] Charlene Grewal Notice Issued Date-Time: 12/07/2019 12:00 Notice Type: Patient Choice Letter Notice Delivered To: Family Member Relationship to Patient: Spouse Referral And Information Aide Name: Delivery Method: PHONE - Phone Violetta Days: Prior Verbal Notification: Recipient Understood Notice: Yes Recipient Signature: Yes Med Rec Note Co-signed by Attending: Coverage Notice Comment: jacquelin with home health who will take her basil Last DP export: 12/07/19 1:49 pm Patient Name: RASHEED BOYD Page 59038 at 0919 All edits/amendments must be made on the electronic document DICTATION DATE: 12/08/19918 SUPERVISOR AIRCRAFT CLEANING: ABDULLAHI 12/08/19918 RPT#: [id number] DC DATE:12/07/19 STATUS: DIS IN [facility] [address] [place] [address] END OF REPORT
== END 2019-12-07 16:30 | disposition home health service (06) | DRG 871 ==
LOC: D.ER 07:16 → D.MS 08:47 → D.ICU 08:47 → D.MS 11-23 10:44
PROVIDERS: Emergency Medicine; Family Medicine; General Practice; Internal Medicine Pulmonary Disease; Radiology Diagnostic Radiology; ADMIT Family Medicine; ATTEND Family Medicine
PROC: 05H633Z Insertion of Infusion Device into Left Subclavian Vein, Percutaneous Approach (ICD-10-PCS; principal; 2019-11-18)
PROC: 0W9G3ZZ Drainage of Peritoneal Cavity, Percutaneous Approach (ICD-10-PCS; 2019-11-22)
PROC: 0W9G3ZZ Drainage of Peritoneal Cavity, Percutaneous Approach (ICD-10-PCS; 2019-12-01)
PROC: 0WHG33Z Insertion of Infusion Device into Peritoneal Cavity, Percutaneous Approach (ICD-10-PCS; 2019-12-06)
DX: A41.51 Sepsis due to Escherichia coli [E. coli] (principal); K72.00 Acute and subacute hepatic failure without coma; R65.21 Severe sepsis with septic shock; N39.0 Urinary tract infection, site not specified; E87.1 Hypo-osmolality and hyponatremia; J98.11 Atelectasis; E46 Unspecified protein-calorie malnutrition; Z68.1 Body mass index [BMI] 19.9 or less, adult; E11.40 Type 2 diabetes mellitus with diabetic neuropathy, unspecified; E87.5 Hyperkalemia; J44.9 Chronic obstructive pulmonary disease, unspecified; E03.9 Hypothyroidism, unspecified; D64.9 Anemia, unspecified; K57.90 Diverticulosis of intestine, part unspecified, without perforation or abscess without bleeding; K70.31 Alcoholic cirrhosis of liver with ascites; D69.6 Thrombocytopenia, unspecified

== ENCOUNTER 2019-12-18 07:09 | Inpatient (IN) | payer MEDICAID ==
[~2019-12-18] VITALS: Ht 170.2 cm; Wt 47.9 kg
[~2019-12-18 07:09] MED LIST changes: +AMBIEN5 MG PO
[2019-12-18 08:12] LABS: HEMATOCRIT 34.2 % (36.0-48.0); HEMOGLOBIN 11.4 g/dL (12-16); MCH 32.8 pg (26.0-34.0); MCHC 33.3 g/dL (31.0-37.0); MCV 98.3 fL (80.0-100.0); MEAN PLATELET VOLUME 8.7 fL (7.4-10.4); PLATELET COUNT 89 10x3/uL (130-400); RBC 3.48 10x6/uL (4.00-5.40); RDW 19.7 % (11.5-14.5); WBC 2.8 10x3/uL (4.8-10.8)
[2019-12-18 08:18] LABS: BILIRUBIN NEGATIVE (NEGATIVE); GLUCOSE NEGATIVE (NEGATIVE); KETONE NEGATIVE (NEGATIVE); NITRITE NEGATIVE (NEGATIVE); SPECIFIC GRAVITY 1.015 (1.005-1.020); UROBILINOGEN NORMAL (NORMAL)
[2019-12-18 08:19] LABS: BACTERIA MANY /hpf (NEGATIVE); RED CELLS - URINE OCC /hpf (0-5); WHITE CELLS - URINE 0-5 /hpf (NEGATIVE)
[2019-12-18 08:21] LABS: APTT 32.6 SECONDS (22.8-39.4); CALC OSMOLALITY 278 mosm/kg (275-300); CALCIUM 9.8 mg/dL (8.5-10.1); CHLORIDE - SERUM 102 mmol/L (98-107); CREATININE - SERUM 0.7 mg/dL (0.6-1.3); GLUCOSE 133 mg/dL (74-106); INR 1.25 (0.85-1.17); POTASSIUM - SERUM 3.4 mmol/L (3.5-5.1); PROTIME 15.6 SECONDS (11.6-15.0); SODIUM 137 mmol/L (136-145); UREA NITROGEN 21 mg/dL (7-18); eGFR NON AFRICAN AMERICAN 90 mL/min (90-120)
[2019-12-18 08:25] LABS: UDS - AMPHET NEGATIVE QUAL (NEGATIVE); UDS - BARB NEGATIVE QUAL (NEGATIVE); UDS - BENZO NEGATIVE QUAL (NEGATIVE); UDS - COCAINE NEGATIVE QUAL (NEGATIVE); UDS - OPIATE NEGATIVE QUAL (NEGATIVE); UDS - PCP NEGATIVE QUAL (NEGATIVE); UDS - THC NEGATIVE QUAL (NEGATIVE)
[2019-12-18 08:34] LABS: ALBUMIN 3.9 g/dL (3.4-5.0); ALKALINE PHOSPHATASE 161 U/L (30-120); ALT (SGPT) 25 U/L (10-68); AMYLASE - SERUM 81 U/L (25-115); CKMB 1.1 U/L (0.0-3.6); CREATINE KINASE 31 UL (21-215); LIPASE 256 U/L (73-393); MAGNESIUM - SERUM 2.3 mg/dL (1.8-2.4); PROTEIN - SERUM 8.1 g/dL (6.4-8.2); TROPONIN-I 0.032 ng/mL (0.000-0.060)
[2019-12-18 09:40] VITALS: BP 115/73
[2019-12-18 10:08] LABS: LYMPHOCYTES 36 % (15-50); NEUTROPHILS 64 % (40-80); PLATELET ESTIMATE DECREASED
--- NOTE | 2019-12-18 10:30 | NUR ---
PATIENT ARRIVED TO UNIT VIA GERNEY. ASSISTED PATIENT TO BED. PATIENT WITH EYES OPEN, NO VERBAL RESPONSES NOTED. PATIENT WITH 20 GAUGE IV TO LEFT FOREARM, PLEURIX CATH TO ABD. INCONTINENT OF BOWEL AND BLADDER. ED RN REPORTS PATIENT IS CARED FOR AT HOME BY HER . SR UP FOR SAFETY. CALL LIGHT WITHIN REACH.
[2019-12-18] MEDS ORDERED: ATIVAN1 MG PO (11:08)
[2019-12-18] MEDS ORDERED: METOLAZONE2.5 MG PO (11:12)
[2019-12-18] MEDS ORDERED: GLIMEPIRIDE2 MG PO (11:13)
[2019-12-18] MEDS ORDERED: LEVEMIR IN100 UNITS/ SC (11:14)
--- NOTE | 2019-12-18 11:15 | NUR ---
SPOKE WITH PATIENTS SPOUSE, SHERICE OLIVER AND VERIFIED ALL OF PATIENTS MEDICATIONS AND PHARMACY. MED REQ DONE PER LIST OF MEDICATIONS RECEIVED FROM PATIENTS SPOUSE PATIENT IS NOT ABLE TO PROVIDE ANY INFORMATION AT THIS TIME. PATIENTS SPOUSE STATES THAT [facility] HAS BEEN COMING TO THE HOUSE THREE TIMES WEEKLY AND PROVIDING TEACHING ON HOW TO DRAIN THE PLEURIX DRAIN TO THE ABDOMEN. PATIENTS SPOUSE STATES THAT THE PATIENT HAS NOT BEEN TAKING THE LACTULOSE THE WAY IT IS PRESCRIBED, BUT HE CAN'T MAKE HER TAKE IT. THANKED THE SPOUSE FOR CLARIFYING PATIENT BASELINE ADL LEVEL AT HOME, MEDICATION REGIMEN, AND LOC.
[2019-12-18 12:33] VITALS: BP 130/64; Ht 170.2 cm; Wt 47.9 kg
[2019-12-18 13:12] VITALS: BP 152/83
--- NOTE | 2019-12-18 15:10 | NUR ---
Patient is now awake and alert. Reoriented to place and time. Patient is very upset that she is back in the hospital and is very upset at her for sending her here. Updated patient on her condition. Patient able to consume diet soda and ice water at this time along with her lactulose. Wound care provided to right medial heel ulcer 1.4x2.5x0.3, stage 3. area cleansed and mepilex dressing applied. No distress. Patient sitting in bed observing her surroundings at this time.
--- NOTE | 2019-12-18 19:20 | NUR ---
RECEIVED REPORT, WILL ASSUME CARE OF PT, CONFUSED, ASKING FOR A DIET COKE, WILL PROVIDE, DENIES ANY OTHER NEEDS AT THIS TIME, BED IS LOW, SRX2, CALL LIGHT IN REACH, WILL CONTINUE PLAN OF CARE
[2019-12-18 20:00] VITALS: BP 139/70
--- NOTE | 2019-12-19 02:36 | NUR ---
PT REQUESTING BS TO BE [id number]
[2019-12-19 04:00] VITALS: BP 112/64
[2019-12-19 05:37] LABS: BASOPHILS 0.6 % (0-2); EOSINOPHILS 9.3 % (0-7); HEMATOCRIT 31.2 % (36.0-48.0); HEMOGLOBIN 10.1 g/dL (12-16); IMMATURE GRANULOCYTES 0.3 % (0-5); LYMPHOCYTES 29.8 % (15-50); MCH 32.4 pg (26.0-34.0); MCHC 32.4 g/dL (31.0-37.0); MEAN PLATELET VOLUME 8.7 fL (7.4-10.4); MONOCYTES 15.4 % (2-11); NEUTROPHILS 44.6 % (40-80); PLATELET COUNT 77 10x3/uL (130-400); RBC 3.12 10x6/uL (4.00-5.40); RDW 19.6 % (11.5-14.5); WBC 3.1 10x3/uL (4.8-10.8)
[2019-12-19 06:01] LABS: ALKALINE PHOSPHATASE 117 U/L (30-120); ALT (SGPT) 17 U/L (10-68); BILIRUBIN - TOTAL 4.15 mg/dL (0.2-1.3); CALC OSMOLALITY 275 mosm/kg (275-300); CALCIUM 8.7 mg/dL (8.5-10.1); CARBON DIOXIDE 20.1 mmol/L (21.0-32.0); CHLORIDE - SERUM 108 mmol/L (98-107); CREATININE - SERUM 0.7 mg/dL (0.6-1.3); GLUCOSE 127 mg/dL (74-106); MAGNESIUM - SERUM 1.9 mg/dL (1.8-2.4); POTASSIUM - SERUM 3.6 mmol/L (3.5-5.1); PROTEIN - SERUM 6.5 g/dL (6.4-8.2); SODIUM 137 mmol/L (136-145); UREA NITROGEN 13 mg/dL (7-18); eGFR NON AFRICAN AMERICAN 90 mL/min (90-120)
--- NOTE | 2019-12-19 07:00 | NUR ---
RECEIVED REPORT. ASSUMED CARE OF PATIENT. PATIENT RESTING WITH EYES OPEN. PATIENT WANTING TO KNOW IF KNOWS THAT SHE IS HERE AND WILL SHE SEE HIM TODAY, THIS MANAGER LANDSCAPE EXPLAINED IT DEPENDS ON WHO IS ROUNDING AND WHO IS HOME SERVICE CONSULTANT TODAY. THIS MANAGER LANDSCAPE EXPLAINED THAT KNOWS THAT SHE IS HERE AND SEEN HER YESTERDAY. BEDSIDE REPORT COMPLETED, WHITE BOARD UPDATED. PATIENT IS SR ON TELEMETRY, RATE OF 71.
[2019-12-19 08:45] VITALS: BP 117/60
--- NOTE | 2019-12-19 09:07 | NUR ---
PATIENT IS CONFUSED AND ANXIOUS THIS AM THAT THE DOCTOR HAS NOT SEEN HER YET AND THAT SHE HAS NOT HAD ANY OF HER MEDICATION. TRIED TO EXPLAIN TO PATIENT THAT THE PHYSICIAN WILL BE HERE. PATEINT BECOMES MORE UPSET AND ARGUMENATIVE WITH THIS MODEL HOME SALES GREETER. THIS MODEL HOME SALES GREETER PLACED CALL LIGHT WITHIN REACH. NO DISTRESS.
--- NOTE | 2019-12-19 10:25 | NUR ---
SHREDDED FILLER CIGAR MAKER MACHINE PAGED AT THIS TIME - SHREDDED FILLER CIGAR MAKER MACHINE, AWAITING CALL BACK.
--- NOTE | 2019-12-19 10:37 | NUR ---
HERE ON UNIT FOR ROUNDS. PATIENT REMAINS EMOTIONAL, TEARFUL AND LOUD.
--- NOTE | 2019-12-19 11:21 | NUR ---
HOME MEDICATIONS RESTARTED AT THIS TIME.
[2019-12-19 12:16] VITALS: BP 118/65
--- NOTE | 2019-12-19 13:05 | NUR ---
ASSISTED PATIENT OOB, TO RESTROOM, AND BACK TO BED. NO DISTRESS. REMAINS TEARFUL. CALL LIGHT WITHIN REACH.
[2019-12-19 14:00] VITALS: BP 101/45
--- NOTE | 2019-12-19 14:05 | NUR ---
ASSISTED PATIENT OOB TO RESTROOM AND BACK TO BED. PATIENT AMBULATES WELL WITH MINIMAL ASSIST TO THE RESTROOM. NO DISTRESS.
--- NOTE | 2019-12-19 14:53 | NUR ---
PATIENT CONTINUES TO HAVE EMOTIONAL OUTBURSTS. MEDICATED FOR NAUSEA AT THIS TIME.
--- NOTE | 2019-12-19 16:30 | NUR ---
ASSISTED PATIENT TO AND FROM RESTROOM. PATIENT RESTING IN BED, NO DISTRESS. CALL LIGHT WITHIN REACH.
--- NOTE | 2019-12-19 19:30 | NUR ---
RECEIVED REPORT, WILL ASSUME CARE OF PT, TALKING ON PHONE, DENIES ANY NEEDS AT THIS TIME, BED IS LOW, SRX2, CALL LIGHT IN REACH, WILL CONTINUE PLAN OF CARE
[2019-12-19 20:00] VITALS: BP 112/73
[2019-12-20] VITALS: BP 103/51
--- NOTE | 2019-12-20 02:05 | NUR ---
I have reviewed this patient and I concur with the Shift Assessment completed by the Licensed Practical Nurse today this shift.
[2019-12-20 04:00] VITALS: BP 106/57
[2019-12-20 05:28] LABS: CALC OSMOLALITY 274 mosm/kg (275-300); CALCIUM 8.3 mg/dL (8.5-10.1); CARBON DIOXIDE 22.2 mmol/L (21.0-32.0); CHLORIDE - SERUM 106 mmol/L (98-107); CREATININE - SERUM 0.6 mg/dL (0.6-1.3); GLUCOSE 118 mg/dL (74-106); POTASSIUM - SERUM 3.7 mmol/L (3.5-5.1); SODIUM 137 mmol/L (136-145); UREA NITROGEN 12 mg/dL (7-18); eGFR NON AFRICAN AMERICAN > 90 mL/min (90-120)
--- NOTE | 2019-12-20 07:15 | NUR ---
RECEIVED PT IN BED EYES CLOSED RESP UNLBORED SKIN W/D COLOR WNL NAD NOTED
--- NOTE | 2019-12-20 08:22 | HP ---
PATIENT: RASHEED BOYD MEDICAL RECORD: [id number] ACCOUNT: [id number] LOCATION:[address] : 57 ADMISSION DATE: 12/18/19 PCP: No PCP HISTORY AND PHYSICAL EXAMINATION CHIEF COMPLAINT: Decreased level of consciousness and high ammonia. HISTORY OF PRESENT ILLNESS: A 64-year-old female with a history of alcoholic cirrhosis, was brought via EMS with decreased level of consciousness that started the day before. The states that over the last few days, the patient stopped taking her lactulose as scheduled and might take it once a day. In the ER, the patient was very slow to respond, really unable to answer questions. She was awake and would look around, but really was not cognizant of her surroundings. Her ammonia level in the ER was 232 and she was admitted. PAST MEDICAL HISTORY: She has type 2 diabetes and has been on insulin. She has alcoholic cirrhosis, hypothyroidism, depression, anemia, low white blood cell count evaluated years ago by Dr. Garcia and felt to be due to her alcohol abuse. The patient was recently admitted into the hospital and had sepsis and bacteremia. PAST SURGICAL HISTORY: She has had an umbilical hernia repair times 2. She has had a total abdominal hysterectomy. She had TIPS procedure. At that time, the TIPS procedure was complicated by hypotension requiring vasopressor treatment. She has had multiple paracentesis and got a catheter placed in her abdomen just this last admission. ALLERGIES: REPORTEDLY TO HYDROCODONE AND SULFA. HOME MEDICATIONS: Include spironolactone 100 mg twice a day, gabapentin 200 mg twice a day, Ambien 5 mg at bedtime, lorazepam 1 mg b.i.d. p.r.n. anxiety, Lasix 40 mg twice a day, lactulose 30 mL t.i.d., metolazone 2.5 mg daily p.r.n. swelling, potassium 20 mEq once or twice a day, Zofran 4 mg every 6 hours p.r.n. nausea. Levothyroxine 75 mcg a day, glimepiride 2 mg a day, Levemir insulin 15 units at bedtime, and omeprazole 20 mg once a day. HABITS: Former smoker. She denies any alcohol use in the last year or more. Denies illicit drug use. FAMILY HISTORY: Father is . He had diabetes. Mother is living and reportedly in good health. Maternal grandmother of breast cancer. REVIEW OF SYSTEMS: GENERAL: Basically unable to obtain in this patient who is not really talking right now, but because I have seen her so much recently generally her weight has fluctuated up and down likely due to her fluid status. HEENT: No particular sinus or allergy problems. RESPIRATORY: No diagnoses of emphysema or asthma. CARDIAC: No history of coronary artery disease. GASTROINTESTINAL: See above history with the cirrhosis, ascites, TIPS, and now the catheter to drain her fluids. GENITOURINARY: Has an occasional urinary tract infection. MUSCULOSKELETAL: No significant arthritic aches and pains. NEUROLOGIC: No seizures or migraines. PSYCHIATRIC: She has depression and anxiety. HISTORY AND PHYSICAL [id number] RASHEED BOYD PHYSICAL EXAMINATION: VITAL SIGNS: Today, temperature 97.9, pulse 77, respirations 18, blood pressure 136/73, O2 sat 99%. Generally, she is awake. Her eyes are open. She is not responsive. SKIN: Bronze color. HEENT: Grossly within normal limits. NECK: Supple. HEART: Regular rate and rhythm. LUNGS: Fairly clear. ABDOMEN: Soft, distended. She has a PleurX catheter in place. No sign of infection. EXTREMITIES: No edema at this time. LABORATORY DATA: EKG normal sinus rhythm, rate 59. ABG: pH 7.536, pCO2 28.3, pO2 of 96 on room air. Chemistry, her sodium is 137, potassium 3.4, chloride 102, CO2 of 26, BUN 21, creatinine 0.7, glucose 133, calcium 9.8, magnesium was 2.3, total bilirubin is 4.0 (better than what it has been in the last month). AST and ALT are both normal. Alkaline phosphatase elevated at 161. Ammonia level was elevated at 132. Troponin 0.032. Her albumin is 3.9 (she got a lot of IV albumin while in the hospital recently). Her amylase is 81 and lipase 256. TSH 7.9. CBC with a white count of 2800, hemoglobin 11.4 and hematocrit 34.2. Urine drug screen is all negative. Urinalysis yellow, hazy, 10-25 epithelial cells, which suggests a contaminated specimen. Chest x-ray essentially unremarkable. CT of the head shows no acute pathology. IMPRESSION: 1. Hepatic encephalopathy with ammonia of 134. 2. Alcoholic cirrhosis. PLAN: She is admitted and will be given lactulose. ED gave her Rocephin for possible UTI, although this is probably a contaminated specimen. We will continue her usual meds when she is able to wake up. Other tests and procedures as warranted. TRANSINT:[id number] Voice Confirmation ID: [id number] DOCUMENT ID: [id number] MARQUEZ GAUTAM MD at 0822 CC: [id number] DICTATION DATE: 12/19/192033 CARD DOFFER: 12/19/19 2358 ADM IN [facility] [address] [place] [address]
[2019-12-20 09:16] VITALS: BP 102/54
--- NOTE | 2019-12-20 09:28 | MORECARE ---
CASE MANAGEMENT DISCHARGE SUMMARY PATIENT: RASHEED BOYD UNIT: [id number] ADM DATE: 12/18/19 AGE: 64 : 57 SEX: F ROOM/BED: D.4476 AUTHOR: BENITA LEAVITT PHYSICIAN: REFERRING PHYSICIAN: MARQUEZ GAUTAM MD DATE OF SERVICE: 12/20/19 Discharge Plan Patient Name: RASHEED BOYD [facility] : 1955 Planned Disposition: Home Hlth Svc w Plan Readm Anticipated Discharge Date: Discharge Date: Expected LOS: Initial Reviewer: [email or web address] Initial Review Date: 12/20/2019 Generated: 12/20/19 10:28 am Patient Name: RASHEED BOYD Page [id number] at 0928 All edits/amendments must be made on the electronic document DICTATION DATE: 12/20/19927 VICE PRESIDENT OF SOFTWARE ENGINEERING: ABDULLAHI 12/20/19927 RPT#: [id number] DC DATE: STATUS: ADM IN [facility] [address] [place] [address] END OF REPORT
--- NOTE | 2019-12-20 09:36 | MORECARE ---
CASE MANAGEMENT DISCHARGE SUMMARY PATIENT: RASHEED BOYD UNIT: [id number] ADM DATE: 12/18/19 AGE: 64 : 57 SEX: F ROOM/BED: D.7176 AUTHOR: BENITA LEAVITT PHYSICIAN: REFERRING PHYSICIAN: MARQUEZ GAUTAM MD DATE OF SERVICE: 12/20/19 Discharge Plan Patient Name: RASHEED BOYD Facility: [facility]:[place] : 1955 Planned Disposition: Home Hlth Svc w Plan Readm Anticipated Discharge Date: Discharge Date: Expected LOS: Initial Reviewer: [email or web address] Initial Review Date: 12/20/2019 Generated: 12/20/19 10:36 am Comments DCP- Discharge Planning Updated by [email or web address]: Selena Byrd on 12/20/19 8:[address] Patient Name: RASHEED BOYD Admission Status: ER Accout number: [id number] Admission Date: 12-18-2019 : 1955 Admission Diagnosis: Attending: MARQUEZ GAUTAM Current LOS: 2 Anticipated DC Date: Planned Disposition: Home Hlth Svc w Plan Readm Primary Insurance: MEDICAID [place] Discharge Planning Comments: CM MET WITH PATIENT AFTER OBTAINING VERBAL CONSENT. PATIENT PLANS TO DC TO HOME TODAY. STATES HAS HH BUT DOESN'T REMEMBER NAME. WANTS ME TO ASK HER . I CALLED HIM AND HE SAID SHE HAS [facility] AND [facility] IS HELPING SET UP OTHER CARE. WILL STEAM FITTER HELPER AT TIME OF DC. JACQUELIN TO RESUME [facility]. Scientific Associate: Selena Byrd DCPIA - Discharge Planning Initial Assessment Updated by [id number]: Selena Byrd on 12/20/19 9:28 am * Is the patient Alert and Oriented? No * PCP DAIN * Pharmacy [facility] * Preadmission Environment Home with Family * Other Equipment WALKER AND CANE * List name and contact numbers for known caregivers / representatives who currently or will assist patient after discharge: JOSAFAT BOYD * Verbal permission to speak to the caregivers and representatives has been obtained from the patient. Yes * Community resources currently utilized Home Health * Please name any agencies selected above. [facility] * Additional services required to return to the preadmission environment? No * Can the patient safely return to the preadmission environment? Yes * Has this patient been hospitalized within the prior 30 days at any hospital? No External Providers External Provider: MAR[facility]ADALU[facility] Next Contact Date: Service Request Date: Service Type: Resolution: Reviewer: Comments: Coverage Notice Reviewer: [email or web address] Charlene Byrd Notice Issued Date-Time: 12/20/2019 9:31 Notice Type: Patient Choice Letter Notice Delivered To: Family Member Relationship to Patient: Spouse Territory Service Representative Name: SHERICE BOYD Delivery Method: PHONE - Phone Violetta Days: Prior Verbal Notification: Recipient Understood Notice: Yes Recipient Signature: Med Rec Note Co-signed by Attending: Coverage Notice Comment: [facility] Last DP export: 12/20/19 8:28 a Patient Name: RASHEED BOYD Page [phone] at 0936 All edits/amendments must be made on the electronic document DICTATION DATE: 12/20/19935 IRIDOLOGIST: ABDULLAHI 12/20/1935 RPT#: [id number] DC DATE: STATUS: ADM IN [facility] [address] [place] [address] END OF REPORT
--- NOTE | 2019-12-20 13:15 | NUR ---
REVIEWED DISCHARGE INSTRUCTIONS WITH PT STATES UNDERSTANDING COPY GIVEN DCD SALINE LOCK TO RAC WITH IV CATHETER INTACT SITE FREE OF REDNESS OR EDEMA PT DISCHARGED HOME LEFT UNIT IN STABLE CONDITION WITH ALL PERSONAL BELONGINGS
--- NOTE | 2019-12-20 15:56 | NUR ---
PT ADMITTED ON 12/17 WITH STAGE 3 PRESSURE INJURY RIGHT HEEL ( DOCUMENTED IN NURSE'S NOTES) 1.5CM X 2.5CM X 0.3CM. WOUND IS BEING COVERED WITH MEPILEX AND HEELS ARE FLOATED WHILE IN BED. PT IS AMBULATORY WITH MINIMAL ASSIST. WOUND CARE WILL MONITOR.
--- NOTE | 2019-12-21 09:25 | MORECARE ---
CASE MANAGEMENT DISCHARGE SUMMARY PATIENT: RASHEED BOYD UNIT: [id number] ADM DATE: 12/18/19 AGE: 64 : 57 SEX: F ROOM/BED: D.9043 AUTHOR: BENITA LEAVITT PHYSICIAN: REFERRING PHYSICIAN: MARQUEZ GAUTAM MD DATE OF SERVICE: 12/21/19 Discharge Plan Patient Name: RASHEED BOYD Facility: [facility]:[place] : 1955 Planned Disposition: Home Hlth Svc w Plan Readm Anticipated Discharge Date: Discharge Date: 12/20/2019 Expected LOS: Initial Reviewer: [email or web address] Initial Review Date: 12/20/2019 Generated: 12/21/19 10:24 am DCP- Discharge Planning Updated by [email or web address]: Selena Byrd on 12/20/19 8:[address] Patient Name: RASHEED BOYD Admission Status: ER Accout number: [id number] Admission Date: 12-18-2019 : 1955 Admission Diagnosis: Attending: MARQUEZ GAUTAM Current LOS: 2 Anticipated DC Date: Planned Disposition: Home Hlth Svc w Plan Readm Primary Insurance: MEDICAID [place] Discharge Planning Comments: CM MET WITH PATIENT AFTER OBTAINING VERBAL CONSENT. PATIENT PLANS TO DC TO HOME TODAY. STATES HAS HH BUT DOESN'T REMEMBER NAME. WANTS ME TO ASK HER . I CALLED HIM AND HE SAID SHE HAS [facility] AND [facility] IS HELPING SET UP OTHER CARE. WILL LATHE SPOTTER AT TIME OF DC. JACQUELIN TO RESUME [facility]. Director Medical Economics: Selena Byrd DCPIA - Discharge Planning Initial Assessment Updated by [id number]: Selena Byrd on 12/20/19 9:28 am * Is the patient Alert and Oriented? No * PCP DAIN * Pharmacy [facility] * Preadmission Environment Home with Family * Other Equipment WALKER AND CANE * List name and contact numbers for known caregivers / representatives who currently or will assist patient after discharge: JOSAFAT BOYD * Verbal permission to speak to the caregivers and representatives has been obtained from the patient. Yes * Community resources currently utilized Home Health * Please name any agencies selected above. [facility] * Additional services required to return to the preadmission environment? No * Can the patient safely return to the preadmission environment? Yes * Has this patient been hospitalized within the prior 30 days at any hospital? No Coverage Notice Reviewer: [email or web address] Charlene Byrd Notice Issued Date-Time: 12/20/2019 9:31 Notice Type: Patient Choice Letter Notice Delivered To: Family Member Relationship to Patient: Spouse Special Makeup Fx Artist Instructor Name: SHERICE BOYD Delivery Method: PHONE - Phone Violetta Days: Prior Verbal Notification: Recipient Understood Notice: Yes Recipient Signature: Med Rec Note Co-signed by Attending: Coverage Notice Comment: ALANA KEYS Last DP export: 12/20/19 8:36 a Patient Name: RASHEED BOYD Page [phone] at 0925 All edits/amendments must be made on the electronic document DICTATION DATE: 12/21/19923 BILINGUAL SALES ASSISTANT: ABDULLAHI 12/21/19923 RPT#: [id number] DC DATE:12/20/19 STATUS: DIS IN [facility] [address] [place] [address] END OF REPORT
== END 2019-12-20 13:10 | disposition home health service (06) | DRG 432 ==
LOC: D.ER 07:09 → D.M2 08:56
PROVIDERS: Family Medicine; ADMIT Family Medicine; ATTEND Family Medicine
DX: K70.31 Alcoholic cirrhosis of liver with ascites (principal); K72.00 Acute and subacute hepatic failure without coma; E11.9 Type 2 diabetes mellitus without complications; E03.9 Hypothyroidism, unspecified; F32.9 Major depressive disorder, single episode, unspecified

== ENCOUNTER → 2020-04-07 09:16 | Outpatient (CLI) | payer MEDICAID ==
[2019-12-18 12:33] VITALS: BMI 16.5
[~2020-04-07 09:16] MED LIST changes: +GLIMEPIRIDE2 MG PO; +LEVEMIR IN100 UNITS/ SC; +METOLAZONE2.5 MG PO
== END | disposition home or self-care (01) ==
LOC: D.US 09:16
PROVIDERS: ATTEND Radiology Diagnostic Radiology
DX: K74.60 Unspecified cirrhosis of liver (principal); R18.8 Other ascites

== ENCOUNTER → 2020-05-02 09:49 | Outpatient (CLI) | payer MEDICAID ==
[2019-12-18 12:33] VITALS: BMI 16.5
== END | disposition home or self-care (01) ==
LOC: D.NM 09:49
PROVIDERS: ATTEND Family Medicine
DX: S22.000A Wedge compression fracture of unspecified thoracic vertebra, initial encounter for closed fracture (principal)